=== PATIENT | female | born 1940 | race Caucasian/White ===

== ENCOUNTER 2019-08-18 13:01 | Outpatient (CLI) | payer MEDICARE, SELFPAY ==
--- NOTE | ~2019-08-18 | MM_ITS ---
EXAMINATION: MM screening tricia BI w rajeev HISTORY: Screening mammogram, family history of breast cancer in her mother. TECHNIQUE: Craniocaudal and mediolateral oblique 3-D tomosynthesis images were obtained and synthetic 2-D images were generated. CAD analysis was submitted and interpreted. COMPARISON: 08/10/2018, 08/04/2017, 07/24/2015 BREAST PARENCHYMAL COMPOSITION: The breasts are heterogeneously dense, which may obscure small masses . FINDINGS: Scattered benign-appearing calcifications are present. There is no evidence of suspicious m ass, calcification, or architectural distortion to suggest malignancy in either breast. There has bee n no suspicious interval change. IMPRESSION: 1. No mammographic evidence of malignancy. 2. Recommend routine screening mammography in one year. BI-RADS Category 2: Benign finding(s). Reviewed, dictated and finalized at location A.
== END 2019-08-18 13:02 | disposition home or self-care (01) ==
LOC: ANHIMG 13:06
PROVIDERS: PCP Chiropractor; Visit Provider Nurse Practitioner
DX: Z12.31 Encounter for screening mammogram for malignant neoplasm of breast (principal)
CPT/HCPCS: 77063; 77067

== ENCOUNTER → 2020-05-02 14:29 | Outpatient (CLI) | payer MEDICARE, SELFPAY ==
--- NOTE | ~2020-05-02 | CT_ITS ---
EXAMINATION: CT soft tissue neck w con DATE: 05/02/2020 15:01 INDICATION: Left neck lump. TECHNIQUE: Computed tomography (CT) of the neck was performed with 75 mL Omnipaque-350 intravenous co ntrast. Automated exposure control and iterative reconstruction technique were employed. The dose-vinod gth product was 350.40 mGy-cm. COMPARISON: None FINDINGS: There are likely changes of ocular lens replacement surgeries. There is plaque in the proxi mal internal arteries with less than 50% stenosis relative to normal distal artery lumen diameters. T here is a skin marker at left neck. There is no abnormal mass in this area. There are no pathological ly enlarged lymph nodes. The mastoid air cells are normal. There is severe cervical spondylosis. IMPRESSION: 1. No abnormal neck mass or lymphadenopathy. Reviewed, dictated and finalized at location A. [employer]
[2020-05-02 14:49] LABS: Estimated Glomerular Filt Rate > 60
== END ==
PROVIDERS: PCP Physician Assistant; Visit Provider Physician Assistant
DX: R22.1 Localized swelling, mass and lump, neck (principal); I70.8 Atherosclerosis of other arteries; M47.812 Spondylosis without myelopathy or radiculopathy, cervical region
CPT/HCPCS: 70491; Q9967

== ENCOUNTER 2020-08-28 10:21 | Outpatient (CLI) | payer MEDICARE, SELFPAY ==
--- NOTE | ~2020-08-28 | MM_ITS ---
EXAMINATION: MM screening tricia BI w rajeev HISTORY: Screening mammogram TECHNIQUE: Craniocaudal and mediolateral oblique 3-D tomosynthesis images were obtained and synthetic 2-D images were generated. CAD analysis was submitted and interpreted. COMPARISON: 08/18/2019, 08/10/2018, 08/04/2017 bilateral digital screening mammogram examinations BREAST PARENCHYMAL COMPOSITION: The breasts are heterogeneously dense, which may obscure small masses . FINDINGS: There is no evidence of suspicious mass, calcification, or architectural distortion to sugg est malignancy in either breast. There has been no suspicious interval change. IMPRESSION: 1. No mammographic evidence of malignancy. 2. Recommend routine screening mammography in one year. BI-RADS Category 1: Negative Reviewed, dictated and finalized at location B.
== END 2020-08-28 10:22 | disposition home or self-care (01) ==
LOC: ANHIMG 10:23
PROVIDERS: PCP Physician Assistant; Visit Provider Physician Assistant
DX: Z12.31 Encounter for screening mammogram for malignant neoplasm of breast (principal)
CPT/HCPCS: 77063; 77067

== ENCOUNTER 2021-09-11 12:28 | Outpatient (CLI) | payer MEDICARE, SELFPAY ==
--- NOTE | ~2021-09-11 | MMUS_ITS ---
EXAMINATION: MM diagnostic tricia BI w rajeev, US breast LT limited HISTORY: Palpable left breast lump TECHNIQUE: Additional 3-D tomosynthesis images of the breasts were performed and synthetic 2-D images were generated. CAD analysis was submitted and interpreted. High resolution Limited left breast ultr asound was performed. COMPARISON: Comparison to multiple prior studies sequentially, with oldest reviewed study dated 07/24. BREAST PARENCHYMAL COMPOSITION: Breast composed of scattered areas of fibroglandular density FINDINGS: MAMMOGRAPHIC FINDINGS: There are no suspicious masses, calcifications or architectural distortion in either breast to sugges t malignancy. ULTRASOUND: Limited left breast ultrasound: Normal heterogeneous echotexture without focal solid or cystic mass. IMPRESSION: 1. No evidence for malignancy in either breast. 2. Routine yearly screening mammogram and regular clinical breast examination are recommended. BI-RADS Category 1: Negative Reviewed, dictated and finalized at location A. IMPRESSION: 1. No evidence for malignancy in either breast. 2. Routine yearly screening mammogram and regular clinical breast examination a re recommended. BI-RADS Category 1: Negative
== END 2021-09-11 12:29 | disposition home or self-care (01) ==
PROVIDERS: PCP Physician Assistant; Visit Provider Physician Assistant
DX: R92.8 Other abnormal and inconclusive findings on diagnostic imaging of breast (principal)
CPT/HCPCS: 76642; 77062; 77066; G0279

== ENCOUNTER → 2021-09-17 10:16 | Outpatient (CLI) | payer MEDICARE, SELFPAY ==
--- NOTE | ~2021-09-17 | XR_ITS ---
EXAMINATION: XR UGIAC wo kub EXAM DATE: 09/17/2021 11:13 INDICATION: Epigastric pain, reflux. History of cholecystectomy, episodes of pancreatitis and pancrea tic duct stents. TECHNIQUE: Limited single and double contrast barium upper GI examination was performed by radiologi st Vamshi Pineda M.D. according to patient abilities. Pulsed dose reduction fluoroscopy was used with f luoroscopic time of 0.8 minutes. The DAP for this procedure was 1.0 Gycm2. A total of 146 images ob tained for the exam. There is no prior study for comparison. FINDINGS: There is no esophageal stricture, diverticulum or mass identified. Small sliding gastroeso phageal hiatal hernia with large amount of reflux demonstrated during the examination. The stomach has a normal appearance without evidence of mass lesion, ulceration or filling defect. T here is normal rugal fold pattern. The duodenum and duodenal sweep are normal in appearance. Orally ingested contrast also refluxed into the common bile duct and the pancreatic duct with some filling d efects inside likely gas. Cholecystectomy clips. IMPRESSION: Small gastroesophageal hiatal hernia, large amount of reflux demonstrated. Reviewed, dictated and finalized at location B. IMPRESSION: Small gastroesophageal hiatal hernia, large amount of reflux demons trated.
== END ==
PROVIDERS: PCP Physician Assistant; Visit Provider Physician Assistant
DX: R10.13 Epigastric pain (principal); K44.9 Diaphragmatic hernia without obstruction or gangrene
CPT/HCPCS: 74246

== ENCOUNTER → 2022-02-20 10:11 | Outpatient (CLI) | payer MEDICARE, SELFPAY ==
--- NOTE | ~2022-02-20 | CT_ITS ---
EXAMINATION: CT abdomen pelvis w con INDICATION: Right lower quadrant pain TECHNIQUE: Computed tomographic images of the abdomen and pelvis were obtained after the administrati on of 100 cc of Omnipaque 350 intravenous contrast. The dose-length product (DLP) was 343.82 mGy-cm. Automated exposure control and iterative reconstruction technique were employed. COMPARISON: 06/03/2019 FINDINGS: Minimal dependent atelectasis is present in the lung bases. The heart size is normal. There is a new 3 mm nodule in the medial aspect of the left lower lobe on image 3. There is mild atelectas is of the lingula. The gallbladder is surgically absent. There is chronic pneumobilia in the left hep atic lobe. The spleen, pancreas, and adrenal glands are normal. The kidneys are unremarkable. There i s calcified atherosclerosis of the aorta and many of the other arteries. No pathologically enlarged a bdominal or pelvic lymph nodes are identified. There is no free intraperitoneal gas or evidence of lazarus wel obstruction. Colonic diverticulosis is present without evidence of diverticulitis. A calcified ut erine fibroid is noted. A moderate volume of colonic stool is present. There is severe lumbar spondyl osis. There is a burst fracture of T11 with vertebroplasty change. IMPRESSION: 1. No CT correlate for the patient's symptoms. Reviewed, dictated and finalized at location B.
[2022-02-20 10:30] LABS: Estimated Glomerular Filt Rate > 60
== END ==
PROVIDERS: PCP Physician Assistant; Visit Provider Physician Assistant
DX: R10.31 Right lower quadrant pain (principal); S22.081A Stable burst fracture of T11-T12 vertebra, initial encounter for closed fracture; K57.30 Diverticulosis of large intestine without perforation or abscess without bleeding; D25.9 Leiomyoma of uterus, unspecified; M47.816 Spondylosis without myelopathy or radiculopathy, lumbar region
CPT/HCPCS: 74177; Q9967

== ENCOUNTER → 2022-05-24 12:27 | Outpatient (CLI) | payer MEDICARE, SELFPAY ==
--- NOTE | ~2022-05-24 | MR_ITS ---
MRI of the cervical spine Clinical History: Cervical radiculopathy Technique: Axial T2-weighted and gradient images, and sagittal T1-weighted, T2-weighted, and T2 fat-s at images were acquired. COMPARISON: 09/08/2010 Findings: No acute fracture seen. Grade 1 retrolisthesis of C5 over C6 is present, similar to prior e xam. No suspicious bone marrow signal abnormality identified. At C2-C3, there is no disc bulge or herniation. No spinal canal stenosis, cord compression, or neural foraminal narrowing. At C3-C4, there is no disc bulge or herniation. No spinal canal stenosis, cord compression, or neural foraminal narrowing. At C4-C5, there is minimal disc bulge. No spinal canal stenosis or cord compression. Probable minimal bilateral neural foraminal narrowing. At C5-C6, there is disc bulge, partially related to the listhesis, which mildly effaces the ventral t hecal sac. No steph cord compression. There is bilateral neural foraminal narrowing, left worse than right. At C6-C7, there is small disc osteophyte complex. No spinal canal stenosis or cord compression. There is probable bilateral neural foraminal narrowing. No abnormal signal seen in the spinal cord. Paravertebral soft tissues are unremarkable. Impression: Grade 1 retrolisthesis of C5 over C6, similar to prior exam. Mild degenerative spondylosis, similar to prior exam. Probable bilateral neural foraminal narrowing a t C4-C5, C5-C6, and C6-C7. Reviewed, dictated and finalized at location [] [employer] Impression: Grade 1 retrolisthesis of C5 over C6, similar to prior exam. Mild degenerative spondylosis, similar to prior exam. Probable bilateral neural foraminal narrowing at C4-C5, C5-C6, and C6-C7.
--- NOTE | ~2022-05-24 | MR_ITS ---
MRI of the thoracic spine Clinical History: Pain Technique: Axial T2-weighted images, and sagittal T1-weighted, T2-weighted, and STIR images were acqu ired. Findings: Chronic T11 compression fracture with vertebroplasty cement present. No other fracture or s ubluxation seen in the thoracic spine. There is mild kyphosis overall the thoracic spine. No suspicio us bone marrow signal abnormalities seen otherwise. Minimal disc bulges are present at T6-T7, T7-T8, and T8-T9, without steph canal stenosis or cord comp ression. No other disc bulge or herniation seen. No spinal canal stenosis or cord compression identif ied in the thoracic spine. No abnormal signal seen in the spinal cord. No epidural mass or collection seen. Paravertebral soft t issues are unremarkable. 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 Minimal disc bulges, as detailed above. Mild kyphosis overall. 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 Minimal disc bulges, as detailed above. Mild kyphosis overall.
== END ==
PROVIDERS: PCP Physician Assistant; Visit Provider Nurse Practitioner Family
DX: M54.6 Pain in thoracic spine (principal); M47.22 Other spondylosis with radiculopathy, cervical region
CPT/HCPCS: 72141; 72146

== ENCOUNTER 2022-07-29 12:45 | Outpatient (CLI) | payer MEDICARE, SELFPAY ==
--- NOTE | 2022-07-29 13:00 | ECG_ITS ---
Measurements Intervals [place] Rate: 67 P: 42 SD: 189 QRS: -27 QRSD: 106 T: -18 QT: 418 QTc: 444 Interpretive Statements SINUS RHYTHM BORDERLINE LEFT AXIS DEVIATION [QRS AXIS < -20] LOW QRS VOLTAGE IN PRECORDIAL LEADS [QRS DEFLECTION < 1.0 mV IN CHEST LEADS] PATTERN CONSISTENT WITH PULMONARY DISEASE INCOMPLETE RIGHT BUNDLE BRANCH BLOCK [90+ ms QRS DURATION, TERMINAL R IN V1/V2, 40+ ms S IN I/aVL/V4/V5/V6] NONSPECIFIC T-WAVE ABNORMALITY ABNORMAL ECG COMPARED TO ECG 06/03/2019 15:43:09 INCOMPLETE RIGHT BUNDLE-BRANCH BLOCK NOW PRESENT Electronically Signed On 07-30-2022 14:06:59 [employer] by Miko Alvarez M.D.
== END 2022-07-29 12:46 | disposition home or self-care (01) ==
PROVIDERS: PCP Physician Assistant; Visit Provider Surgery
DX: Z01.818 Encounter for other preprocedural examination (principal); I10 Essential (primary) hypertension; K40.90 Unilateral inguinal hernia, without obstruction or gangrene, not specified as recurrent; R94.31 Abnormal electrocardiogram [ECG] [EKG]; I45.19 Other right bundle-branch block
CPT/HCPCS: 36415; 86850; 86900; 86901; 93005

== ENCOUNTER 2022-08-02 02:40 | Day surgery (SDC) | payer MEDICARE, SELFPAY ==
--- NOTE | 2022-07-26 13:12 | PC.NURSE ---
Report to the Outpatient Waiting Room, entrance under the green pavilion located off [facility], at time _0830 on date _08/02/22 . Planned Procedure Time: __1030 . Time changes happen often and if your time is changed the preop area will call you the afternoon before. - You and your visitor will be asked to self-screen and do not enter if you have any COVID symptoms. - Only one visitor is requested with a max of two and NO children visitors are allowed at this time. - The patient visitor may be requested to leave or wait in car when not with patient due to distancing restrictions. - A mask is optional within the hospital at this time. Patients may have clear liquids (water, carbonated beverages, clear teas, apple juice) until 3 hours prior to surgery with a maximum of 20 ounces. - No food from midnight until time of surgery - Infants may have breast milk until 4 hours before surgery, infant formula 6 hours prior to surgery. - Children will be allowed to drink immediately following surgery. If applicable, please bring a bottle or sippy cup to assist with drinking. Juice, water, soda, and popsicles are readily available. For infants on formula, please bring formula the day of surgery. Pacifiers are allowed. Take the following medications with a SIP of water the morning of surgery: __AMLODIPINE,LEVOTHYROXINE AND OXYCODONE IF NEEDED DO NOT STOP ANY OF YOUR OTHER PRESCRIPTION MEDICATIONS PRIOR TO SURGERY ?EXCEPT THE FOLLOWING Medications to discontinue per physician ALL VITAMINS/SUPPLEMENTS 3 DAYS PRE OP 07/29/22 HIBICLENS SHOWERS MORNING OF SURGERY Please no make-up, nail senegalese, hairspray, perfume, deodorant, or body powder the day of surgery. No jewelry (including any body piercings) or valuables the day of surgery, leave them at home. Please take a shower or bath the night before, or the morning of, surgery with an antibacterial soap. Wear comfortable, loose fitting clothing. Children are encouraged to wear pajamas. - Jewelry must be removed prior to entering the operating room. Rings and piercings that are not removed may be cut off. - The hospital will not accept responsibility for valuables. - Please leave all valuables, including medications, at home the day of surgery. If you are going home after surgery, a licensed commercial truck driver must drive you home. - NO public transportation without another adult if you receive anesthesia. - We recommend that an adult stay with you for 24 hours following discharge. - We also recommend that you do not drive, make important decision, drink alcoholic beverages, or take any drugs that were not prescribed by your health care provider for at least 24 hours after your discharge time. Follow any additional instructions given to you from your surgeon. If you or anyone in your household have experienced Covid symptoms in the past week, please notify your surgeon or the nurse liaison at the phone number below for possible testing. Telephone instructions given to __PATIENT and asked if any additional questions and then verbalized understanding. Patient advised to call surgeon office or pre surgery nurse liaison [phone] if any additional questions.
[2022-07-26 13:22] VITALS: BMI 25.0
--- NOTE | 2022-08-01 18:31 | PM.SD2 ---
Same Day Admit/Disch: HPI History of Present Illness Narrative: Sandra Carlos is a 81 year old female who has noticed a bulge and burning in the right groin since about January of 2022. She had a CT scan which did not show any hernias. She was seen in the office and found to have a reducible right inguinal hernia. She is taken to surgery now for robotic laparoscopic right inguinal hernia repair. Patient has a history of chronic back pain and takes Percocet about 4 times per day. [facility] Past Medical History Medical History Anemia Arthritis Chronic low back pain Chronic pain syndrome Colitis Diverticulitis Gastric ulcer GERD (gastroesophageal reflux disease) Glaucoma HLD (hyperlipidemia) HTN (hypertension) Pancreatitis Pneumonia Right rotator cuff tear Right rotator cuff tear arthropathy Seasonal allergies Surgical History Surgical History H/O bilateral cataract extraction H/O lumbar discectomy H/O removal of cyst History of cardiac catheterization History of total left hip arthroplasty Hx of appendectomy Hx of cholecystectomy Hx of tonsillectomy Status post total knee replacement, left Family History Family History Sibling Family history of congenital heart disease Family history of arthritis Father Family history of arthritis Mother Family history of malignant neoplasm Other Diabetes mellitus Family history of cardiovascular disease Family history of kidney disease Hypertension Social History Social History Social History: Lives at home with her . She is a full code. She nominates her daughter to be the individual making medical decisions for her if she is unable. She rarely drinks alcohol. Lifelong nonsmoker. No drug use. Smoking status: Never smoker Alcohol intake: current Substance use: never Substance use type: does not use Living arrangements: with family Gender identity (if verbalized by the patient): Female Spiritual care concerns: No Agree to blood products: Yes Same Day Admit/Disch: Med Pre-admit Medications Home Medications Medication Instructions Recorded Confirmed Type ergocalciferol (vitamin D2) 1,250 50,000 unit PO 2XW 06/03/19 08/02/22 History mcg (50,000 unit) capsule (Vitamin D2) ferrous sulfate 325 mg (65 mg 325 mg PO DAILY 06/03/19 08/02/22 History iron) tablet levothyroxine 75 mcg tablet 75 mcg PO DAILY 06/03/19 08/02/22 History (Synthroid) multivit with minerals-iron 18 1 tablet PO DAILY 06/03/19 08/02/22 History mg-folic ac 400 mcg-vit K 25 mcg tablet (Adults Multivitamin) oxycodone-acetaminophen 5 mg-325 1 tablet PO Q4H PRN Pain 06/03/19 08/02/22 History mg tablet amlodipine 2.5 mg tablet 2.5 mg PO DAILY 01/16/21 07/26/22 History atorvastatin 20 mg tablet 20 mg PO DAILY 01/16/21 08/02/22 History calcium citrate 200 mg (950 mg) 600 mg PO DAILY 01/16/21 08/02/22 History tablet omega-3 fatty acids 1,000 mg 1,000 mg PO BID 01/16/21 08/02/22 History capsule (Fish Oil Concentrate) hydroxychloroquine 200 mg tablet 200 mg PO BID 07/26/22 08/02/22 History lisinopril 20 1 tablet PO DAILY 07/26/22 08/02/22 History mg-hydrochlorothiazide 25 mg tablet zinc 50 mg tablet 50 mg PO DAILY 07/26/22 08/02/22 History oxycodone-acetaminophen 5 mg-325 1 - 2 tablet PO Q6H PRN pain #25 08/02/22 Rx mg tablet (Percocet) tabs Exam Const: General: comfortable, no acute distress, alert and awake HENMT: Head: normocephalic and atraumatic Mouth: Yes Normal oral and palatal mucosa present Eyes: Conjunctivae: conjunctivae normal Pupils: Equal, round and reactive pupils present EOM: EOMs intact bilaterally Neck: Neck: normal visual inspection, no lymphadenopathy and nontender Resp: Effort & Inspection: nor
[2022-08-02] VITALS (10 sets, daily range): BP systolic 110–143; BP diastolic 32–61; PULSE 72–96; RESP 12–16; TEMP 36.3–36.8; O2SAT 95–100
--- NOTE | 2022-08-02 06:57 | WPDHPUPDATE1 ---
History and Physical Update Update Date/Time: 08/02/22 06:57 History and Physical has been reviewed, including an updated exam of the patient. There are NO changes in the patient's condition. Risks, benefits, and alternatives have been discussed and questions answered. Patient agrees to proceed with procedure.
[2022-08-02] MEDS: ACETAMINOPHEN 500 MG TABLET 1000 MG PO (08:57)
[2022-08-02] MEDS: LACTATED RINGERS 1,000 ML 30 ML IV CONT ×3 (09:09→15:38)
[2022-08-02] MEDS: KETOROLAC 15 MG/ML VIAL (*BKC) IV PUSH (09:11)
[2022-08-02 10:14] LABS: Sodium 126 mmol/L (137-145)
--- NOTE | 2022-08-02 10:37 | WPDANESEPPF ---
Anes - Initial Pre Proc Eval Procedure: Operation Date: 08/02/22 10:30 Proposed Procedures p Robotic Laparoscopic Assisted Right Inguinal Hernia Repair - Allen Rodriguez MD Date/Time: 08/02/22 10:37 Surgeon: Allen Rodriguez MD Pre Op Diagnosis: Right Ing Hernia Patient Data Age: 81 Gender: F Height: 1.5 m Weight: 54.9 kg Last Vital Signs Temp 36.3 C L 08/02/22 08:35 Pulse 72 08/02/22 08:35 Resp 16 08/02/22 08:35 BP 143/54 H 08/02/22 08:35 Pulse Ox 97 08/02/22 08:35 O2 Del Method Room Air 08/02/22 08:35 Allergies Allergy/AdvReac Type Severity Reaction Status Date / Time morphine Allergy Mild Nausea Verified 08/02/22 08:50 Home Medications Medication Instructions Recorded Confirmed Type ergocalciferol (vitamin D2) 1,250 50,000 unit PO 2XW 06/03/19 08/02/22 History mcg (50,000 unit) capsule (Vitamin D2) ferrous sulfate 325 mg (65 mg 325 mg PO DAILY 06/03/19 08/02/22 History iron) tablet levothyroxine 75 mcg tablet 75 mcg PO DAILY 06/03/19 08/02/22 History (Synthroid) multivit with minerals-iron 18 1 tablet PO DAILY 06/03/19 08/02/22 History mg-folic ac 400 mcg-vit K 25 mcg tablet (Adults Multivitamin) oxycodone-acetaminophen 5 mg-325 1 tablet PO Q4H PRN Pain 06/03/19 08/02/22 History mg tablet amlodipine 2.5 mg tablet 2.5 mg PO DAILY 01/16/21 07/26/22 History atorvastatin 20 mg tablet 20 mg PO DAILY 01/16/21 08/02/22 History calcium citrate 200 mg (950 mg) 600 mg PO DAILY 01/16/21 08/02/22 History tablet omega-3 fatty acids 1,000 mg 1,000 mg PO BID 01/16/21 08/02/22 History capsule (Fish Oil Concentrate) hydroxychloroquine 200 mg tablet 200 mg PO BID 07/26/22 08/02/22 History lisinopril 20 1 tablet PO DAILY 07/26/22 08/02/22 History mg-hydrochlorothiazide 25 mg tablet zinc 50 mg tablet 50 mg PO DAILY 07/26/22 08/02/22 History Laboratory Tests 08/02/22 08:46 Sodium 126 mmol/L L mmol/L (137-145) Patient hx anesthesia problems: none Family hx anesthesia problems: none Results Review: All pre-operative results and documents have been reviewed as part of the pre-operative evaluation. COUNT INCLUDES THE [facility] Past Medical History Medical History Anemia Arthritis Chronic low back pain Chronic pain syndrome Colitis Diverticulitis Gastric ulcer GERD (gastroesophageal reflux disease) Glaucoma HLD (hyperlipidemia) HTN (hypertension) Pancreatitis Pneumonia Right rotator cuff tear Right rotator cuff tear arthropathy Seasonal allergies Surgical History Surgical History H/O bilateral cataract extraction H/O lumbar discectomy H/O removal of cyst History of cardiac catheterization History of total left hip arthroplasty Hx of appendectomy Hx of cholecystectomy Hx of tonsillectomy Status post total knee replacement, left Family History Family History Sibling Family history of congenital heart disease Family history of arthritis Father Family history of arthritis Mother Family history of malignant neoplasm Other Diabetes mellitus Family history of cardiovascular disease Family history of kidney disease Hypertension Social History Social History Social History: Lives at home with her . She is a full code. She nominates her daughter to be the individual making medical decisions for her if she is unable. She rarely drinks alcohol. Lifelong nonsmoker. No drug use. Smoking status: Never smoker Alcohol intake: current Substance use: never Substance use type: does not use Living arrangements: with family Gender identity (if verbalized by the patient): Female Spiritual care concerns: No Agree to blood products: Yes Anes - Eval Final PreProcedure Day of Procedure 08/02/22 10:37 Pat
[2022-08-02] MEDS: ceFAZolin 2 GM/D5W 50 ML 2 GM/50 ML BAG IVPB (11:15)
[2022-08-02] MEDS: BUPIVACAINE/EPINEPHRINE 0.5% 10 ML VIAL 20 ML INFILTRATE (11:51)
--- NOTE | 2022-08-02 13:25 | P.OP_ITS ---
Procedure Note - Detailed Date of Procedure 08/02/22 Pre-op Diagnosis Right Ing Hernia Post-op Diagnosis Same Procedure Performed Robotic laparoscopic right inguinal hernia repair with mesh Surgeon Allen Rodriguez MD Computer Programming Supervisor Xavier PEREZ Anesthesia General and Local Indications Patient has a large right inguinal hernia which has gotten bigger over time and byers when it is bulging. She is taken to surgery now for robotic laparoscopic right inguinal hernia repair Findings Patient had a large indirect right inguinal hernia Description of Procedure Patient was taken to surgery and induced into general anesthesia. The abdomen is prepped and draped. An applied Medical optical trocar was used to gain access to the abdominal cavity in the left subcostal position. After insuffl ation, we placed 8 mm robotic ports in the mid abdomen and right upper abdomen. The left upper quadrant port was exchanged for an 8 mm robotic port as well. Robot was brought into the field. The camera was docked and targeted. We then docked arms 1 and 3. The surgeon then went to the console. There were some adhesions of omentum in the right lower quadrant. These were taken down without difficulty. The peritoneum was incised at about the level of the anterior superior iliac spine. This incision was continued laterally and medially. We then created a peritoneal flap. This extended past the median umbilical ligament. The flap was dissected down and care was taken to avoid the inferior epigastric vessels as well as the iliac vessels. Attention was then turned to the hernia sac which was carefully dissected out of the internal ring and completely freed. The round ligament was carefully dissected and then divided with the cautery. We exposed the pubic tubercle and Bharathi's ligament. The peritoneum was further dissected posteriorly until an adequate flap had been created and the inguinal canal space had been exposed. A 17 x 12 piece of 3DMax mesh was then introduced into the abdomen. It was positioned over the hernia defect and covered the area quite well. Three different 3-0 Vicryl sutures were then placed. One was placed in Bharathi's ligament. One was placed medially on the upper aspect of the mesh. The other was placed laterally on the upper aspect of the mesh. All looked good. I then used a 2 0 V lock. This was used as a running suture and the peritoneum was closed. Vicryl suture was used to close a couple of holes in the peritoneum with [id number] suture. All looked good. We evacuated CO2 and undocked the robot. The trocars were removed. Skin was closed with subcuticular 4-0 Monocryl skin suture. The wounds were dressed with Exofin surgical adhesive. The patient was awakened and taken to recovery in good condition. Sponge and needle counts were correct x2. Implants 17 x 12 cm 3DMax mesh Estimated Blood Loss -5.0 Drains No Packing No Pathology None sent Complications No immediate complications Condition Stable Disposition PACU [facility] Billing Surgery - Charge Forward: Surgery Billing (Robotic laparoscopic repair of right inguinal hernia.)
[2022-08-02] MEDS: fentaNYL CITRATE INJ (*CRX) 100 MCG/2 ML VIAL 25 MCG IV PUSH ×6 (13:27→15:06)
[2022-08-02] MEDS: oxyCODONE HCL (*CRX) 5 MG TAB IR PO (14:32)
--- NOTE | 2022-08-02 14:40 | SUR.PHASEII ---
PATIENT STATES LEFT EYE SUDDENLY FEELS IRRITATED . SHE IS ABLE TO KEEP IT OPEN; NO REDNESS NOTED. DR. FRYE HERE TO SEE HER.
[2022-08-02] MEDS: ARTIFICIAL TEARS OPHTH SOLN 15 ML BOTTLE 1 DROP EACH EYE (15:04)
[2022-08-02] MEDS: DICLOFENAC SODIUM 0.1% OPHTH SOLN 2.5 ML BOTTLE 1 DROP EACH EYE (15:04)
[2022-08-02] MEDS: PROPARACAINE HCL 0.5% 15 ML OPHTH SOLN 1 DROP EACH EYE (15:04)
--- NOTE | 2022-08-02 15:57 | SUR.PHASEII ---
PATIENT C/O'ING PERSISTENT LEFT EYE IRRITATION; DR. FRYE NOTFIED; INSTRUCTED TO HAVE PATIENT FOLLOW-UP WITH EYE DOCTOR.
== END 2022-08-02 16:32 | disposition home or self-care (01) ==
PROVIDERS: PCP Physician Assistant; Visit Provider Surgery
PROC: 8E0Y4CZ Robotic Assisted Procedure of Lower Extremity, Percutaneous Endoscopic Approach (ICD-10-PCS; CPT 49650; principal; 2022-08-02 10:30)
DX: K40.90 Unilateral inguinal hernia, without obstruction or gangrene, not specified as recurrent (principal); I10 Essential (primary) hypertension; E78.5 Hyperlipidemia, unspecified; K21.9 Gastro-esophageal reflux disease without esophagitis; D64.9 Anemia, unspecified; H40.9 Unspecified glaucoma; G89.4 Chronic pain syndrome; K90.0 Celiac disease; F11.20 Opioid dependence, uncomplicated
CPT/HCPCS: 49650; S2900; 36415; 84295; A9270; C1781; J0330; J0360; J0690; J1100; J1170; J1885; J2405; J2704; J2710; J3010; J7030; J7120

== ENCOUNTER 2022-10-10 12:45 | Outpatient (CLI) | payer MEDICARE, SELFPAY ==
--- NOTE | ~2022-10-10 | DEXA_ITS ---
Bone Density Report Name: ADALBERTO FRAUSTO Age: 81 Sex: Female Ethnicity: White Date of : 1940 Indication: osteopenia; height loss; prior fracture; rheumatoid arthritis; postmenopausal Referring Provider: MARIMAR, EVAN Study: Bone densitometry was performed. Exam Date: October 10, 2022 Accession number: [id number] Bone Density: Region BMD T-score Z-score Classification AP Spine(L1, L2) 0.894 -0.8 1.7 Normal Femoral Neck (Left) 0.622 -2.0 0.2 Osteopenia Total Hip (Left) 0.720 -1.8 0.2 Osteopenia Femoral Neck (Right) 0.667 -1.6 0.7 Osteopenia Total Hip (Right) 0.735 -1.7 0.4 Osteopenia Total Hip Mean 0.727 -1.8 0.3 Osteopenia World Health Organization criteria for BMD impression classify patients as: Normal (T-score at or above -1.0), Osteopenia (T-score between -1.0 and -2.5), or Osteoporosis (T-score at or below -2.5). 10-year Fracture Risk: FRAX not reported because: Prior hip or vertebral fracture Previous Exams: Region Exam Age BMD T-score BMD Change BMD Change Date g/cm2 vs Baseline vs Previous AP Spine (L1-L2) 10/10/2022 81 0.894 -0.8 0.021 (2.4%) 0.021 (2.4%) 08/04/2017 76 0.873 -1.0 Total Hip(Left) 10/10/2022 81 0.720 -1.8 -0.090 (-11.1% -0.090 (-11.1% 08/04/2017 76 0.809 -1.1 Total Hip(Right) 10/10/2022 81 0.735 -1.7 -0.052 (-6.7%) -0.052 (-6.7%) 08/04/2017 76 0.787 -1.3 *Denotes significance at 95% confidence level, LSC for AP Spine = 0.022 g/cm2, LSC for Total Hip = 0.027 g/cm2 Clinical Information Provided by Patient: Have had a previous hip or vertebral fracture Has had a low trauma fracture Has rheumatoid arthritis Has used the following medications: Vitamin D, Calcium Patient maximum height was 60 Menopause Age: 53 No regular weight bearing exercise Drinks caffeinated beverages Onset of menses at age 13 Number of children 2 Impression: The patient has low bone mass, based on the Left Femoral Neck T-score. The patient has risk factors, including: previous fracture. The BMD for the Total Hip(Left) decreased, changing by -11.1% since the last DXA exam. The BMD for the Total Hip(Right) decreased, changing by -6.7% since the last DXA exam. Discussion: INCREASED RISK OF FRACTURE DUE TO HISTORY OF FRACTURE. The patient's previous fracture puts the patient at high risk of a future fracture. In untreated patients, the risk of osteoporotic fracture increases approximately two-fold for e
== END 2022-10-10 12:46 | disposition home or self-care (01) ==
PROVIDERS: PCP Physician Assistant; Visit Provider Physician Assistant
DX: Z78.0 Asymptomatic menopausal state (principal); M85.89 Other specified disorders of bone density and structure, multiple sites
CPT/HCPCS: 77080

== ENCOUNTER 2022-11-05 16:28 | Inpatient (IN) | payer MEDICARE, SELFPAY ==
--- NOTE | ~2022-11-05 | XR_ITS ---
EXAMINATION: XR chest 1V portable Exam Date/Time: 11/06/2022 16:35 CDT HISTORY: Hyponatremia LOW POTASSIUM W/DIARRHEA Comparison: 06/03/2019. RESULT: Lines, tubes, and devices: None. Lungs and pleura: Senescent changes. Bibasilar scar/atelectasis. Cardiomediastinal silhouette: Stable. Other: No acute osseous or upper abdominal finding. IMPRESSION: No acute cardiopulmonary process. Reviewed, dictated and finalized at location K.
--- NOTE | 2022-11-05 17:54 | ECG_ITS ---
Measurements Intervals [place] Rate: 74 P: 37 MI: 150 QRS: -42 QRSD: 86 T: -80 QT: 414 QTc: 461 Interpretive Statements SINUS RHYTHM INCOMPLETE RIGHT BUNDLE BRANCH BLOCK DELAYED PRECORDIAL R/S TRANSITION ST-T WAVE ABNORMALITY IN ANTEROLAT/INF LEADS- CONSIDER ISCHEMIA BASELINE ARTIFACT- I, II, III, AVR, AVL, AVF, V1-V6 ABNORMAL ECG COMPARED TO ECG 07/29/2022 13:35:26 ST-T WAVE ABNORMALITY NOW PRESENT Electronically Signed On 11-05-2022 18:35:43 CDT by Gideon Barton D.O.
[2022-11-05 17:55] VITALS: BP 109/67; PULSE 73; RESP 16; TEMP 36.5; O2SAT 98
[2022-11-05 18:29] LABS: Basophils Absolute Auto 0.1 K/mm3 (0.0-0.1); Basophils Percent Auto 0.4 % (0.2-1.2); Eosinophils Percent Auto 0.3 % (0-4.4); Hemoglobin 12.3 g/dL (12.0-15.0); Immature Granulocyte Percent A 4.5 % (0-0.5); Lymphocytes Percent Auto 8.9 % (18.3-44.2); Mean Corpuscular HGB Conc 36.2 g/dl (32-36); Mean Corpuscular Hemoglobin 29.2 pg (26-34); Mean Corpuscular Volume 80.8 fl (80-100); Mean Platelet Volume 7.8 fl (7.4-10.4); Monocytes Absolute Auto 0.8 K/mm3 (0.1-0.6); Monocytes Percent Auto 5.6 % (2.6-8.5); Neutrophils Absolute Auto 10.8 K/mm3 (1.3-6.7); Neutrophils Percent Auto 80.3 % (45.5-73.1); Platelet Count Result 484 k/mm3 (150-375); Red Blood Count 4.21 M/mm3 (4.2-5.4); Red Cell Distribution Width 14.4 % (11.5-14.5); White Blood Count 13.5 K/mm3 (4.5-10.0)
[2022-11-05 18:45] LABS: Alanine Aminotransferase 65 U/L (6-35); Albumin Level 4.3 g/dL (3.5-5.1); Alkaline Phosphatase 95 U/L (38-126); Anion Gap 8 mmol/L (8-16); Aspartate Amino Transferase 90 U/L (14-36); Bilirubin,Total 0.8 mg/dL (0.2-1.3); Blood Urea Nitrogen 15 mg/dL (7-17); Calcium 8.6 mg/dL (8.4-10.2); Carbon Dioxide 37 mmol/L (22-30); Chloride 69 mmol/L (98-107); Estimated Glomerular Filt Rate > 60; Glucose 105 mg/dL (65-110); Potassium 2.6 mmol/L (3.4-5.0); Sodium 114 mmol/L (137-145)
[2022-11-05] MEDS: POTASSIUM CHLORIDE 20 MEQ PACKET (FOR LIQUID) 40 MEQ PO (19:01)
[2022-11-05] MEDS: SODIUM CHLORIDE 0.9% IV 1,000 ML 999 ML IV CONT (19:02)
[2022-11-05 19:10] LABS: Magnesium 1.6 mg/dL (1.6-2.3)
--- NOTE | 2022-11-05 19:49 | ED.GENADULT ---
HPI - General Adult General Chief complaint: Weakness Stated complaint: N/V/D, weakness, dizziness Time Seen by Provider: 11/05/22 18:47 History of Present Illness HPI narrative: 81-year-old female history of celiac disease presented to the Emergency Department for evaluation of increased generalized weakness. Patient does have prior history of hypokalemia and hyponatremia. Family states that the patient is Noncompliant with her celiac disease and often has issues with malabsorption and diarrhea. Patient states on Friday she began having diarrhea but it only lasted a day or so and resolved. Patient states since then she has had decreased p.o. intake. Patient denies any abdominal pain or nausea or vomiting but she does report decreased p.o. intake. Patient denies any chest pain shortness of breath. Patient denies any pain with urination. Related Data Home Medications Medication Instructions Recorded Confirmed ergocalciferol (vitamin D2) 1,250 50,000 unit PO 2XW 06/03/19 11/05/22 mcg (50,000 unit) capsule (Vitamin D2) levothyroxine 75 mcg tablet 75 mcg PO DAILY 06/03/19 11/05/22 (Synthroid) multivit with minerals-iron 18 1 tablet PO DAILY 06/03/19 11/05/22 mg-folic ac 400 mcg-vit K 25 mcg tablet (Adults Multivitamin) oxycodone-acetaminophen 5 mg-325 1 tablet PO Q4H PRN Pain 06/03/19 11/05/22 mg tablet amlodipine 2.5 mg tablet 2.5 mg PO DAILY 01/16/21 11/05/22 atorvastatin 20 mg tablet 20 mg PO DAILY 01/16/21 11/05/22 omega-3 fatty acids 1,000 mg 1,000 mg PO DAILY 01/16/21 11/05/22 capsule (Fish Oil Concentrate) hydroxychloroquine 200 mg tablet 200 mg PO DAILY 07/26/22 11/05/22 lisinopril 20 1 tablet PO DAILY 07/26/22 11/05/22 mg-hydrochlorothiazide 25 mg tablet zinc 50 mg tablet 50 mg PO DAILY 07/26/22 11/05/22 alendronate 70 mg tablet (Fosamax) 70 mg PO WEEKLY 11/05/22 11/05/22 duloxetine 30 mg capsule,delayed 30 mg PO DAILY 11/05/22 11/05/22 release ferrous sulfate 325 mg (65 mg 325 mg PO DAILY 11/05/22 11/05/22 iron) tablet tizanidine 2 mg tablet 2 mg PO Q12H PRN Spasms 11/05/22 11/05/22 Allergies Allergy/AdvReac Type Severity Reaction Status Date / Time morphine Allergy Mild Nausea Verified 09/30/22 10:35 Review of Systems Review of Systems: All systems reviewed & are unremarkable except as noted in HPI and below PMFSH Past Medical History Medical History Anemia Arthritis Chronic low back pain Chronic pain syndrome Colitis Diverticulitis Gastric ulcer GERD (gastroesophageal reflux disease) Glaucoma HLD (hyperlipidemia) HTN (hypertension) Pancreatitis Pneumonia Right rotator cuff tear Right rotator cuff tear arthropathy Seasonal allergies Surgical History Surgical History H/O bilateral cataract extraction H/O inguinal hernia repair 08/02/22 Robotic laparoscopic right inguinal hernia repair with mesh H/O lumbar discectomy H/O removal of cyst History of cardiac catheterization History of total left hip arthroplasty Hx of appendectomy Hx of cholecystectomy Hx of tonsillectomy Status post total knee replacement, left Family History Family History Sibling Family history of congenital heart disease Family history of arthritis Father Family history of arthritis Mother Family history of malignant neoplasm Other Diabetes mellitus Family history of cardiovascular disease Family history of kidney disease Hypertension Social History Social History Social History: Lives at home with her . She is a full code. She nominates her daughter to be the individual making medical decisions for her if she is unable. She rarely drinks alcohol. Lifelong nonsmoker. No drug use. Smoking status: Never smoker Alcohol intake: never Substance use: never Anne
[2022-11-05] MEDS: SODIUM CHLORIDE 0.9% IV 250 ML 125 ML (20:39)
[2022-11-05] MEDS: KCL 20 MEQ/SW 100 ML 100 ML 50 MEQ IVPB (20:39)
[2022-11-05 20:52] VITALS: BP 165/69; PULSE 71; RESP 20; O2SAT 96
--- NOTE | 2022-11-05 21:39 | ADMGEN ---
This patient, Sandra Carlos, was admitted to IMU Room 212-01. Patient/family oriented to hospital policies and general routines including ID bracelet, bed and alarms, visiting hours, pain management, procedures, bathroom and other care routines, personal items, smoking policy, room service/diet, and visiting hours. Information on how to activate the Rapid Response Team has been discussed. Patient/Family are encouraged to report perceived risks to care and to ask questions if they do not understand what they are told or what they should do.
[2022-11-05 21:40] VITALS: BP 163/72; PULSE 93; RESP 20; TEMP 36.4; O2SAT 97; BMI 24.7
[2022-11-05 22:00] VITALS: PULSE 77
[2022-11-05 22:30] VITALS: PULSE 81; RESP 20; O2SAT 97
[2022-11-05 22:56] VITALS: BP 166/70; PULSE 81; RESP 20; TEMP 36.6; O2SAT 97
[2022-11-05 23:07] LABS: Appearance Urine Clear (Clear); Bilirubin Urine Negative (Negative); Blood Urine Negative (Negative); Color Urine Yellow (Yellow); Glucose Urine UA Negative (Negative); Ketones Urine Negative (Negative); Leukocyte Esterase Ur Negative LEU/UL (Negative); Nitrate Urine Negative (Negative); Protein Urine Negative (Negative); Specific Grav Ur 1.006 (1.001-1.035)
[2022-11-05 23:10] LABS: Add Urine Microscopic? NO
--- NOTE | 2022-11-05 23:39 | PM.IMHP ---
H&P: HPI History of Present Illness Date/Time: 11/05/22 23:39 Chief Complaint: Generalized weakness electrolyte derangements Narrative: This is a 81-year-old female with a past medical history including but not limited to celiac disease, osteoporosis, hypertension, dyslipidemia, depression, low vitamin D, presented to the Emergency Department for evaluation of increased generalized weakness.? Patient has experienced previous episodes of hypokalemia and hyponatremia.?She has a chronic hyponatremia at baseline. Family states that the patient is Noncompliant with her celiac disease and often has issues with malabsorption and diarrhea. Patient admits to non compliance to her prescribed diet due to lack of access.? Patient states on Friday she began having diarrhea but it only lasted a day or so and resolved.? Patient states since then she has had decreased p.o. intake, generalized weakness.? Patient denies any abdominal pain or nausea or vomiting but she does report decreased p.o. intake.? Patient denies any chest pain shortness of breath.? Patient denies any pain with urination. She has an episode of loose bowels today. At the time of the bedside evaluation the patient is feeling a lot better. Review of Systems Review of Systems: CONSTITUTIONAL: Negative for any fevers, chills, night sweats, tiredness, fatigue, malaise, anorexia or weight loss. CARDIOVASCULAR: Negative for chest pain, palpitations, dizziness, orthopnea or lower extremity edema. RESPIRATORY: Negative for shortness of breath, cough, wheezing, sputum. GENITOURINARY: Negative for frequency, nocturia, dysuria, hematuria. GYNECOLOGIC: Negative for abnormal bleeding. HEMATOLOGIC: Negative for any abnormal bleeding or bruising. MUSCULOSKELETAL: Negative for joint swelling, stiffness or pain. SKIN: Negative for rashes, eruptions, lesions or dryness. NEUROLOGIC: Negative for any focal neurologic complaints. PSYCHIATRIC: Negative for anxiety, panic, depression. [facility] Past Medical History Medical History Anemia Arthritis Chronic low back pain Chronic pain syndrome Colitis Diverticulitis Gastric ulcer GERD (gastroesophageal reflux disease) Glaucoma HLD (hyperlipidemia) HTN (hypertension) Pancreatitis Pneumonia Right rotator cuff tear Right rotator cuff tear arthropathy Seasonal allergies Surgical History Surgical History H/O bilateral cataract extraction H/O inguinal hernia repair 08/02/22 Robotic laparoscopic right inguinal hernia repair with mesh H/O lumbar discectomy H/O removal of cyst History of cardiac catheterization History of total left hip arthroplasty Hx of appendectomy Hx of cholecystectomy Hx of tonsillectomy Status post total knee replacement, left Family History Family History Sibling Family history of congenital heart disease Family history of arthritis Father Family history of arthritis Mother Family history of malignant neoplasm Other Diabetes mellitus Family history of cardiovascular disease Family history of kidney disease Hypertension Social History Social History Social History: Lives at home with her . She is a full code. She nominates her daughter to be the individual making medical decisions for her if she is unable. She rarely drinks alcohol. Lifelong nonsmoker. No drug use. Smoking status: Never smoker Alcohol intake: never Substance use: never Substance use type: does not use Lack of Transportation: No Lack of Food: Never True Current Housing: I Have Housing Concerned About Future Housing: No Difficulty Paying Gas/Electric Bills: No Difficulty Paying for Meds: No Currently Unemployed: No Education: High School Diploma/GED Difficulty w/ Childcare or Family Care: No L
[2022-11-06] VITALS (14 sets, daily range): BP systolic 148–184; BP diastolic 55–67; PULSE 58–96; RESP 16–20; TEMP 36.4–37.2; O2SAT 94–97; BMI 24.8
[2022-11-06 00:07] LABS: Anion Gap 4 mmol/L (8-16); Blood Urea Nitrogen 13 mg/dL (7-17); Carbon Dioxide 33 mmol/L (22-30); Chloride 80 mmol/L (98-107); Estimated Glomerular Filt Rate > 60; Glucose 112 mg/dL (65-110); Potassium 3.2 mmol/L (3.4-5.0); Sodium 117 mmol/L (137-145)
[2022-11-06] MEDS: SODIUM CHLORIDE 0.9% IV 1,000 ML 100 ML IV CONT (00:44)
[2022-11-06] MEDS: KCL 20 MEQ/SW 100 ML 100 ML 50 MEQ IVPB (00:44)
[2022-11-06 05:12] LABS: Anion Gap 5 mmol/L (8-16); Blood Urea Nitrogen 11 mg/dL (7-17); Calcium 8.2 mg/dL (8.4-10.2); Carbon Dioxide 33 mmol/L (22-30); Chloride 82 mmol/L (98-107); Estimated Glomerular Filt Rate > 60; Glucose 95 mg/dL (65-110); Potassium 3.5 mmol/L (3.4-5.0); Sodium 120 mmol/L (137-145)
[2022-11-06] MEDS: LEVOTHYROXINE SODIUM 75 MCG TABLET PO (05:43)
[2022-11-06 08:30] LABS: Sodium 119 mmol/L (137-145)
[2022-11-06] MEDS: HYDROXYCHLOROQUINE SULFATE 200 MG TABLET PO (08:56)
[2022-11-06] MEDS: FERROUS SULFATE 324 MG TABLET PO (08:56)
[2022-11-06] MEDS: DULoxetine HCL 30 MG CAPSULE.DR PO (08:56)
[2022-11-06] MEDS: OMEGA 3 POLYUNSAT FATTY ACIDS 1 GM CAP PO (08:56)
[2022-11-06] MEDS: ATORVASTATIN 20 MG TABLET PO (08:56)
[2022-11-06] MEDS: POTASSIUM CHLORIDE 20 MEQ TABLET 40 MEQ PO (09:00)
--- NOTE | 2022-11-06 09:23 | PM.IMPN ---
Progress Note: A&P Assessment and Plan (1) Acute hyponatremia: Code(s): E87.1 - Hypo-osmolality and hyponatremia Status: Acute Assessment and Plan: Acute on chronic hyponatremia; Likely multifactorial. Baseline hyponatremia with serum sodium levels in the 126 to 134 range habitually. current worsening sodium likely due to appropriate ADH release in the setting of ongoing GI losses and thiazide induced hyponatremia. Marginal improvement from 114 to 117 after administration of 1 L NACl 0.9%. Free water restriction 1.8L, normal saline @ 150mL/hour, nephrology consult pending (2) Hypokalemia: Code(s): E87.6 - Hypokalemia Status: Acute Assessment and Plan: Likely due to GI losses and thiazide diuretics, hold HCTZ Continue PO/IV suplementation Monitor serial chemistries (3) HTN (hypertension): Code(s): I10 - Essential (primary) hypertension Status: Acute Assessment and Plan: Hold thiazide, resume lisinopril and increase the calcium channel tadeo to 5 mg PO daily Blood pressures reviewed 11/06, still quite elevated Hydralazine as needed (4) Celiac disease: Code(s): K90.0 - Celiac disease Status: Acute Assessment and Plan: Nutritional evaluation (5) Diarrhea: Code(s): R19.7 - Diarrhea, unspecified Status: Acute Assessment and Plan: Recommend compliance with celiac diet and avoiding gluten containing foods Plan DVT prophylaxis with SCDs GI prophylaxis not indicated Code status full code Subjective Date/time seen: 11/06/22 09:23 Interval history: 81-year-old female with a past medical history including but not limited to celiac disease, osteoporosis, hypertension, dyslipidemia, depression, low vitamin D,?presented to the emergency department for evaluation of increased generalized weakness likely secondary to diarrhea and dehydration. No overnight events noted. No chest pain or shortness of breath. No nausea, vomiting or diarrhea. No fevers or chills. Patient is eager to go home. Review of Systems Review of Systems: 12 point review of systems was assessed and was negative except as noted in the HPI Exam Narrative: General: No acute distress, alert and oriented per baseline HEENT: Atraumatic, normocephalic, mucous membranes moist CV: Regular rate and rhythm, S1, S2 Lungs: Clear to auscultation bilaterally, no rales or crackles noted, no wheezes, good air entry Abdomen: Soft, nontender, nondistended Extremities: Normal to inspection Skin: No rashes noted, no lesions or wounds seen Psych: Euthymic, normal affect Objective Data Vital Signs Vital Signs: Vital Signs - 24 hr 11/05/22 17:55 11/05/22 20:52 11/05/22 21:40 Temperature 97.7 F 97.6 F Pulse Rate 73 71 93 Respiratory Rate 16 20 20 Blood Pressure 109/67 165/69 H 163/72 H Pulse Oximetry 98 96 97 Oxygen Delivery Room Air 11/05/22 22:00 11/05/22 22:56 11/05/22 22:30 Temperature 97.9 F Pulse Rate 77 81 81 Respiratory Rate 20 20 Blood Pressure 166/70 H Pulse Oximetry 97 97 Oxygen Delivery Room Air 11/06/22 00:00 11/06/22 02:00 11/06/22 04:00 Temperature Pulse Rate 58 L 68 68 Respiratory Rate 20 Blood Pressure Pulse Oximetry 97 Oxygen Delivery Room Air 11/06/22 04:00 11/06/22 04:00 11/06/22 06:00 Temperature 97.8 F Pulse Rate 96 71 67 Respiratory Rate 18 Blood Pressure 152/63 H Pulse Oximetry 96 Oxygen Delivery 11/06/22 07:26 Temperature 98.3 F Pulse Rate 65 Respiratory Rate 16 Blood Pressure 184/64 H Pulse Oximetry 94 Oxygen Delivery Intake/Output Intake/Output: Intake & Output 11/03/22 11/04/22 11/05/22 11/06/22 23:59 23:59 23:59 23:59 Intake Total 1100 250 Output Total 850 Balance 1100 -600 Meds/Results Medications: Active Medications Generic Name Dose Route Start Last Admin Trade Name Freq PRN Reason Stop
[2022-11-06] MEDS: amLODIPine BESYLATE 5 MG TABLET PO (09:33)
[2022-11-06] MEDS: lisinopriL 20 MG TABLET PO (09:33)
[2022-11-06 12:10] LABS: Anion Gap 4 mmol/L (8-16); Blood Urea Nitrogen 9 mg/dL (7-17); Calcium 8.1 mg/dL (8.4-10.2); Carbon Dioxide 31 mmol/L (22-30); Chloride 84 mmol/L (98-107); Estimated Glomerular Filt Rate > 60; Glucose 97 mg/dL (65-110); Potassium 3.7 mmol/L (3.4-5.0); Sodium 119 mmol/L (137-145)
[2022-11-06] MEDS: SODIUM CHLORIDE 0.9% IV 1,000 ML 60 ML IV CONT (12:15)
--- NOTE | 2022-11-06 12:15 | PM.CNNEP ---
Assessment and Plan Assessment and plan (1) Acute hyponatremia: Code(s): E87.1 - Hypo-osmolality and hyponatremia Status: Acute Assessment and Plan: acute on chronic sodium has been running ~ 126 - 134mmol/L since 2018 suspect acute worsening due to: prerenal factors (GI loss) ongoing use of HCTZ improvement noted with fluid restriction and normal saline goal of therapy is a change of 6 - 8mmol/L in 24 hours sodium should go higher than 122mmol/L before 6pm today TSH and cortisol okay check urine electrolytes, SPEP, UPEP and serum/urine osmolality follow trend of repeat sodium levels (2) Hypokalemia: Code(s): E87.6 - Hypokalemia Status: Acute Assessment and Plan: presumably secondary to GI losses and thiazide diuretic Continue PO/IV suplementation as needed HCTZ on hold follow repeat K+ check Mg intermittently (3) HTN (hypertension): Code(s): I10 - Essential (primary) hypertension Status: Acute Assessment and Plan: running on the higher side currently HCTZ on hold on lisinopril and amlodipine - titrate as needed (4) Celiac disease: Code(s): K90.0 - Celiac disease Status: Acute Assessment and Plan: known history continue to follow dietary restrictions (5) Diarrhea: Code(s): R19.7 - Diarrhea, unspecified Status: Acute Assessment and Plan: possibly precipitated by dietary indiscretion diet modifications in place contiune supportive therapy I will continue to follow the patient with you while she remains hospitalized make further recommendations during her hospital course. Thank you for allowing me to participate care of this patient. History of Present Illness Reason for Consult Consult date: 11/06/22 Reason for consult: hyponatremia Chief Complaint Chief complaint: Hypokalemia,Hyponatremia History of Present Illness Narrative: The patient is a 81-year-old female with a past medical history as outlined below who presented to [facility] Emergency Room for further evaluation of generalized weakness. The patient apparently has known celiac disease, and according to her family, is not always compliant with the gluten free diet. Do this issue, she has on and off issues with malabsorption and diarrhea. The patient states that she is not always compliant with a gluten free diet due to her lack of access to wound free products. She reports that yesterday she began having diarrhea and and seemed to self resolve within 24 hours. However along with the diarrhea, she reports decreased p.o. intake in association with progressive and significant weakness. She gave no complaints with regard to fevers, chills, abdominal pain, nausea, or vomiting. No other subjective symptoms reported. Given the ongoing weakness as mentioned, she presented to the ER for further assessment. Workup and evaluation emergency room demonstrated the patient be hemodynamically stable and in no acute distress aside from the aforementioned generalized weakness. Routine blood tests demonstrated significant hyponatremia worse than her baseline in association with hypokalemia. It was felt that volume depletion was playing a role with regard to these electrolyte abnormalities so received IV fluid resuscitation in the emergency room along with supplemental potassium to treat these electrolyte abnormalities. She was subsequently admitted to the hospital for further evaluation and therapy. Renal consultation was requested due to her acute on chronic hyponatremia. From review her records, the patient had some degree of chronic hyponatremia that dates back as far as 2017 if not longer with sodium levels that fluctuate anywhere from 126-134 millimoles per L. the patient reports that she is aware of this issue/problem and has been told on numerous occasion particularly when she receives preoperative labs for any type of proced
[2022-11-06 16:31] LABS: Creatinine Urine 67.6 mg/dL
[2022-11-06 16:38] LABS: Sodium 120 mmol/L (137-145)
[2022-11-06 18:53] LABS: Sodium 121 mmol/L (137-145)
--- NOTE | 2022-11-06 20:42 | P.PNCROSS_ITS ---
Event Note Event Note Event Note: RN notified me patient reporting restless legs . Magnesium, Hba1c and iron lauren el ordered.
[2022-11-06 23:24] LABS: Hemoglobin A1C 5.7 % (<5.7)
[2022-11-06 23:30] LABS: Anion Gap 5 mmol/L (8-16); Blood Urea Nitrogen 11 mg/dL (7-17); Calcium 7.7 mg/dL (8.4-10.2); Carbon Dioxide 27 mmol/L (22-30); Chloride 88 mmol/L (98-107); Estimated Glomerular Filt Rate > 60; Glucose 97 mg/dL (65-110); Magnesium 1.4 mg/dL (1.6-2.3); Potassium 3.8 mmol/L (3.4-5.0)
--- NOTE | 2022-11-06 23:45 | PM.EVENT ---
Event Note Event Note Event Note: Patient complains of restless legs Labs partial result reviewed Mag 1.4 K 3.8 Ca 7.7 Na 120 Plan Magnesium 2 G IV once Ca start CaCO3 200 mg PO daily Increase free water restriction from 1800 to 1500 mL/day Increase Nacl from 75 to 100 mL/hr Repeat Labs in AM Follow up iron panel in AM.
[2022-11-07] VITALS (15 sets, daily range): BP systolic 160–171; BP diastolic 62–68; PULSE 62–97; RESP 16–20; TEMP 36.5–37.1; O2SAT 96–99
[2022-11-07] MEDS: MAGNESIUM SULF 2 GM/WATER 50ML 2 GM/50 ML BAG IVPB (00:10)
[2022-11-07 00:25] LABS: Iron 53 ug/dL (37-170)
[2022-11-07 00:35] LABS: Percent Iron Saturation 21 % (20-50)
[2022-11-07 04:52] LABS: Basophils Absolute Auto 0.1 K/mm3 (0.0-0.1); Basophils Percent Auto 0.5 % (0.2-1.2); Eosinophils Absolute Auto 0.1 K/mm3 (0-0.3); Eosinophils Percent Auto 0.9 % (0-4.4); Hematocrit 29.7 % (37.0-47.0); Hemoglobin 10.2 g/dL (12.0-15.0); Immature Granulocyte Absolute 0.72 K/mm3 (0.00-0.031); Immature Granulocyte Percent A 4.9 % (0-0.5); Lymphocytes Absolute Auto 1.75 K/mm3 (0.9-3.2); Lymphocytes Percent Auto 11.8 % (18.3-44.2); Mean Corpuscular HGB Conc 34.3 g/dl (32-36); Mean Corpuscular Hemoglobin 28.2 pg (26-34); Mean Platelet Volume 7.7 fl (7.4-10.4); Monocytes Percent Auto 6.8 % (2.6-8.5); Neutrophils Absolute Auto 11.1 K/mm3 (1.3-6.7); Neutrophils Percent Auto 75.1 % (45.5-73.1); Platelet Count Result 406 k/mm3 (150-375); Red Blood Count 3.62 M/mm3 (4.2-5.4); Red Cell Distribution Width 14.8 % (11.5-14.5); White Blood Count 14.8 K/mm3 (4.5-10.0)
[2022-11-07] MEDS: LEVOTHYROXINE SODIUM 75 MCG TABLET PO (05:02)
[2022-11-07 05:17] LABS: Alanine Aminotransferase 44 U/L (6-35); Albumin Level 3.1 g/dL (3.5-5.1); Alkaline Phosphatase 73 U/L (38-126); Anion Gap 4 mmol/L (8-16); Aspartate Amino Transferase 60 U/L (14-36); Bilirubin,Total 0.5 mg/dL (0.2-1.3); Blood Urea Nitrogen 9 mg/dL (7-17); Calcium 7.7 mg/dL (8.4-10.2); Carbon Dioxide 26 mmol/L (22-30); Chloride 90 mmol/L (98-107); Estimated Glomerular Filt Rate > 60; Glucose 94 mg/dL (65-110); Magnesium 2.1 mg/dL (1.6-2.3); Phosphorus 1.9 mg/dL (2.5-4.5); Potassium 3.7 mmol/L (3.4-5.0)
[2022-11-07] MEDS: CALCIUM CARBONATE (TUMS) 500 MG (200 MG ELEMENTAL) PO (08:58)
[2022-11-07] MEDS: FERROUS SULFATE 324 MG TABLET PO (08:58)
[2022-11-07] MEDS: amLODIPine BESYLATE 5 MG TABLET PO (08:59)
[2022-11-07] MEDS: ATORVASTATIN 20 MG TABLET PO (08:59)
[2022-11-07] MEDS: DULoxetine HCL 30 MG CAPSULE.DR PO (08:59)
[2022-11-07] MEDS: HYDROXYCHLOROQUINE SULFATE 200 MG TABLET PO (08:59)
[2022-11-07] MEDS: lisinopriL 20 MG TABLET PO (09:00)
[2022-11-07] MEDS: OMEGA 3 POLYUNSAT FATTY ACIDS 1 GM CAP PO (09:00)
[2022-11-07] MEDS: SODIUM CHLORIDE 0.9% IV 1,000 ML 75 ML IV CONT (09:03)
[2022-11-07] MEDS: SODIUM CHLORIDE 1 GM TABLET PO ×2 (09:34→17:27)
--- NOTE | 2022-11-07 11:46 | PM.IMPN ---
Progress Note: A&P Assessment and Plan (1) Acute hyponatremia: Code(s): E87.1 - Hypo-osmolality and hyponatremia Status: Acute Assessment and Plan: Acute on chronic hyponatremia; Likely multifactorial. Baseline hyponatremia with serum sodium levels in the 126 to 134 range habitually. current worsening sodium likely due to appropriate ADH release in the setting of ongoing GI losses and thiazide induced hyponatremia. Marginal improvement from 114 to 117 after administration of 1 L NACl 0.9%. Free water restriction 1.8L, normal saline @ 150mL/hour, nephrology consult pending 11/07: unchanged at 120 today, NaCl tabs added by nephrology, recheck pending, likely component of SIADH? (2) Hypokalemia: Code(s): E87.6 - Hypokalemia Status: Acute Assessment and Plan: Likely due to GI losses and thiazide diuretics, hold HCTZ Continue PO/IV suplementation Monitor serial chemistries (3) HTN (hypertension): Code(s): I10 - Essential (primary) hypertension Status: Acute Assessment and Plan: Hold thiazide, resume lisinopril and increase the calcium channel tadeo to 5 mg PO daily Blood pressures reviewed 11/07, still quite elevated Hydralazine as needed (4) Celiac disease: Code(s): K90.0 - Celiac disease Status: Acute Assessment and Plan: Nutritional evaluation (5) Diarrhea: Code(s): R19.7 - Diarrhea, unspecified Status: Acute Assessment and Plan: Recommend compliance with celiac diet and avoiding gluten containing foods Plan DVT prophylaxis with SCDs GI prophylaxis not indicated Code status full code Subjective Date/time seen: 11/07/22 11:46 Interval history: 81-year-old female with a past medical history including but not limited to celiac disease, osteoporosis, hypertension, dyslipidemia, depression, low vitamin D,?presented to the emergency department for evaluation of increased generalized weakness likely secondary to diarrhea and dehydration. No overnight events noted. No chest pain or shortness of breath. No nausea, vomiting or diarrhea. No fevers or chills. Patient is eager to go home and very upset she is still here. Still feels weak. Review of Systems Review of Systems: 12 point review of systems was assessed and was negative except as noted in the HPI Exam Narrative: General: No acute distress, alert and oriented per baseline HEENT: Atraumatic, normocephalic, mucous membranes moist CV: Regular rate and rhythm, S1, S2 Lungs: Clear to auscultation bilaterally, no rales or crackles noted, no wheezes, good air entry Abdomen: Soft, nontender, nondistended Extremities: Normal to inspection Skin: No rashes noted, no lesions or wounds seen Psych: Euthymic, normal affect Objective Data Vital Signs Vital Signs: Vital Signs - 24 hr 11/06/22 12:00 11/06/22 16:00 11/06/22 12:00 Temperature 98.3 F 98.9 F Pulse Rate 77 71 74 Respiratory Rate 16 18 Blood Pressure 150/60 H 152/57 H Pulse Oximetry 96 97 Oxygen Delivery 11/06/22 16:00 11/06/22 14:00 11/06/22 12:00 Temperature Pulse Rate 78 82 Respiratory Rate Blood Pressure Pulse Oximetry Oxygen Delivery Room Air 11/06/22 18:00 11/06/22 16:00 11/06/22 20:00 Temperature 97.9 F Pulse Rate 78 70 Respiratory Rate 18 Blood Pressure 148/67 H Pulse Oximetry 97 Oxygen Delivery Room Air 11/06/22 20:00 11/06/22 20:00 11/06/22 22:00 Temperature Pulse Rate 70 69 76 Respiratory Rate 18 Blood Pressure Pulse Oximetry 97 Oxygen Delivery Room Air 11/06/22 23:31 11/07/22 00:00 11/07/22 00:00 Temperature 97.6 F Pulse Rate 70 70 72 Respiratory Rate 18 18 Blood Pressure 170/55 H Pulse Oximetry 97 97 Oxygen Delivery Room Air 11/07/22 02:00 11/07/22 04:00 11/07/22 04:00 Temperature Pulse Rate 71 71 66 Respiratory Rate 18 Blood Pressure Pulse Ox
--- NOTE | 2022-11-07 12:34 | PM.PNNEP ---
Progress Note: A&P Assessment and Plan (1) Hyponatremia: Code(s): E87.1 - Hypo-osmolality and hyponatremia Status: Acute Assessment and Plan: acute on chronic sodium has been running ~ 126 - 134mmol/L since 2018 suspect acute worsening due to: prerenal factors (GI loss) ongoing use of HCTZ improvement noted with fluid restriction and normal saline goal of therapy is a change of 6 - 8mmol/L in 24 hours - this was achieved evaluation to date: TSH and cortisol okay SPEP, UPEP and serum/urine osmolality pending urine electrolytes pending consider 3% saline start salt tabs follow trend of repeat sodium levels (2) Hypokalemia: Code(s): E87.6 - Hypokalemia Status: Acute Assessment and Plan: presumably secondary to GI losses and thiazide diuretic Continue PO/IV suplementation as needed HCTZ on hold follow repeat K+ check Mg intermittently (3) HTN (hypertension): Code(s): I10 - Essential (primary) hypertension Status: Acute Assessment and Plan: running on the higher side currently HCTZ on hold on lisinopril and amlodipine - titrate as needed (4) Celiac disease: Code(s): K90.0 - Celiac disease Status: Acute Assessment and Plan: known history continue to follow dietary restrictions (5) Diarrhea: Code(s): R19.7 - Diarrhea, unspecified Status: Acute Assessment and Plan: possibly precipitated by dietary indiscretion diet modifications in place contiune supportive therapy Will continue to follow. Subjective Date/time seen: 11/07/22 12:34 Interval history: Follow-up for acute on chronic hyponatremia. Sodium doing better but not back to baseline as of yet; overall, she feels better but report some weakness and fatigue; anxious for discharge in general; no other acute issue/events overnight or earlier this morning. Exam Narrative: General: elderly but WD/WN female in NAD Heart: normal S1 and S2; no rub Lungs: clear to auscultation Abdomen: soft, nontender, nondistended, positive bowel sounds Extremities: no cyanosis or clubbing; no edema Skin: warm and dry Objective Data Vital Signs Vital Signs: Vital Signs Temp Pulse Resp BP Pulse Ox O2 Del Method 11/07/22 12:00 98.3 F 77 18 160/68 H 97 11/07/22 09:06 96 Room Air 11/07/22 08:00 98.4 F 72 18 171/64 H 96 11/07/22 06:00 62 11/07/22 04:00 97.8 F 97 20 160/68 H 97 11/07/22 04:00 66 11/07/22 04:00 71 18 97 Room Air 11/07/22 02:00 71 11/07/22 00:00 72 11/07/22 00:00 70 18 97 Room Air 11/06/22 23:31 97.6 F 70 18 170/55 H 97 11/06/22 22:00 76 11/06/22 20:00 69 11/06/22 20:00 70 18 97 Room Air 11/06/22 20:00 97.9 F 70 18 148/67 H 97 11/06/22 16:00 Room Air 11/06/22 18:00 78 11/06/22 14:00 82 11/06/22 16:00 78 11/06/22 16:00 98.9 F 71 18 152/57 H 97 Intake/Output Intake/Output: Intake & Output 11/04/22 11/05/22 11/06/22 11/07/22 23:59 23:59 23:59 23:59 Intake Total 1100 1690 1550 Output Total 1650 1150 Balance 1100 40 400 Meds/Results Medications: Active Medications Generic Name Dose Route Start Last Admin Trade Name Javierq PRN Reason Stop Dose Admin Amlodipine Besylate 5 mg 11/06/22 09:00 11/07/22 08:59 Amlodipine Besylate 5 Mg Tablet PO 5 mg DAILY MICHAEL Administration Atorvastatin Calcium 20 mg 11/06/22 09:00 11/07/22 08:59 Atorvastatin 20 Mg Tablet PO 20 mg DAILY MICHAEL Administration Calcium Carbonate 200 mg 11/07/22 08:00 11/07/22 08:58 Calcium Carbonate (Tums) 500 Mg (200 Mg Elemental) PO 200 mg DAILY@0800 MICHAEL Administration Duloxetine HCl 30 mg 11/06/22 09:00 11/07/22 08:59 Duloxetine Hcl 30 Mg Capsule.Dr PO 30 mg DAILY MICHAEL Administration Ferrous Sulfate 324 mg 11/06/22 08:00 11/07/22 08:58
--- NOTE | 2022-11-07 12:34 | P.PNNP_ITS ---
Progress Note: A&P Assessment and Plan (1) Hyponatremia: Code(s): E87.1 - Hypo-osmolality and hyponatremia Status: Acute Assessment and Plan: * acute on chronic * sodium has been running ~ 126 - 134mmol/L since 2018 * suspect acute worsening due to: * prerenal factors (GI loss) * ongoing use of HCTZ * improvement noted with fluid restriction and normal saline * goal of therapy is a change of 6 - 8mmol/L in 24 hours - this was achieved * evaluation to date: * TSH and cortisol okay * SPEP, UPEP and serum/urine osmolality pending * urine electrolytes pending * consider 3% saline * start salt tabs * follow trend of repeat sodium levels (2) Hypokalemia: Code(s): E87.6 - Hypokalemia Status: Acute Assessment and Plan: * presumably secondary to GI losses and thiazide diuretic * Continue PO/IV suplementation as needed * HCTZ on hold * follow repeat K+ * check Mg intermittently (3) HTN (hypertension): Code(s): I10 - Essential (primary) hypertension Status: Acute Assessment and Plan: * running on the higher side currently * HCTZ on hold * on lisinopril and amlodipine - titrate as needed (4) Celiac disease: Code(s): K90.0 - Celiac disease Status: Acute Assessment and Plan: * known history * continue to follow dietary restrictions (5) Diarrhea: Code(s): R19.7 - Diarrhea, unspecified Status: Acute Assessment and Plan: * possibly precipitated by dietary indiscretion * diet modifications in place * contiune supportive therapy Will continue to follow. Subjective Date/time seen: 11/07/22 12:34 Interval history: Follow-up for acute on chronic hyponatremia. Sodium doing better but not back to baseline as of yet; overall, she feels better but report some weakness and fatigue; anxious for discharge in general; no other acute issue/events overnight or earlier this morning. Exam Narrative: General: elderly but WD/WN female in NAD Heart: normal S1 and S2; no rub Lungs: clear to auscultation Abdomen: soft, nontender, nondistended, positive bowel sounds Extremities: no cyanosis or clubbing; no edema Skin: warm and dry Objective Data Vital Signs Vital Signs: Vital Signs Temp Pulse Resp BP Pulse Ox O2 Del Method 11/07/22 12:00 98.3 F 77 18 160/68 H 97 11/07/22 09:06 96 Room Air 11/07/22 08:00 98.4 F 72 18 171/64 H 96 11/07/22 06:00 62 11/07/22 04:00 97.8 F 97 20 160/68 H 97 11/07/22 04:00 66 11/07/22 04:00 71 18 97 Room Air 11/07/22 02:00 71 11/07/22 00:00 72 11/07/22 00:00 70 18 97 Room Air 11/06/22 23:31 97.6 F 70 18 170/55 H 97 11/06/22 22:00 76 11/06/22 20:00 69 11/06/22 20:00 70 18 97 Room Air 11/06/22 20:00 97.9 F 70 18 148/67 H 97 11/06/22 16:00 Room Air 11/06/22 18:00 78 11/06/22 14:00 82 11/06/22 16:00 78 11/06/22 16:00 98.9 F 71 18 152/57 H 97 Intake/Output Intake/Output: Intake & Output 11/04/22 11/05/22 11/06/22 11/07/22 23:59 23:59 23:59 23:59 Intake Total
[2022-11-07 13:33] LABS: Sodium 120 mmol/L (137-145)
[2022-11-07 13:35] LABS: Sodium 120 mmol/L (137-145)
[2022-11-07 14:08] LABS: Sodium 119 mmol/L (137-145)
[2022-11-07] MEDS: SODIUM CHLORIDE 3% 150 ML 50 ML IV CONT (15:30)
[2022-11-07 19:32] LABS: Sodium 121 mmol/L (137-145)
[2022-11-07 23:58] LABS: Sodium 119 mmol/L (137-145)
[2022-11-08] VITALS (12 sets, daily range): BP systolic 152–172; BP diastolic 55–69; PULSE 63–76; RESP 16–28; TEMP 36.4–37.2; O2SAT 96–99
[2022-11-08] MEDS: SODIUM CHLORIDE 3% 150 ML 50 ML IV CONT ×2 (00:51→12:06)
[2022-11-08 04:51] LABS: Hemoglobin 10.1 g/dL (12.0-15.0); Mean Corpuscular HGB Conc 34.8 g/dl (32-36); Mean Corpuscular Hemoglobin 28.8 pg (26-34); Mean Corpuscular Volume 82.6 fl (80-100); Mean Platelet Volume 7.6 fl (7.4-10.4); Platelet Count Result 393 k/mm3 (150-375); Red Blood Count 3.51 M/mm3 (4.2-5.4); Red Cell Distribution Width 14.9 % (11.5-14.5); White Blood Count 12.2 K/mm3 (4.5-10.0)
[2022-11-08 05:04] LABS: Alanine Aminotransferase 36 U/L (6-35); Albumin Level 2.9 g/dL (3.5-5.1); Alkaline Phosphatase 60 U/L (38-126); Anion Gap 3 mmol/L (8-16); Aspartate Amino Transferase 47 U/L (14-36); Bilirubin,Total 0.5 mg/dL (0.2-1.3); Blood Urea Nitrogen 6 mg/dL (7-17); Calcium 7.7 mg/dL (8.4-10.2); Carbon Dioxide 27 mmol/L (22-30); Chloride 92 mmol/L (98-107); Estimated Glomerular Filt Rate > 60; Glucose 90 mg/dL (65-110); Potassium 3.3 mmol/L (3.4-5.0); Sodium 122 mmol/L (137-145)
[2022-11-08 05:28] LABS: Eosinophils Absolute Manual 0.24 K/mm3 (0.02-0.5); Eosinophils Percent Manual 2 % (0-4); Lymphocytes Absolute Manual 1.22 K/mm3 (1.1-4.5); Neutrophils Percent Manual 50 % (46-73); Total Cells Counted 100
[2022-11-08 05:29] LABS: Anisocytosis 2+ (NORMAL); Burr Cells 3+ (NORMAL); Hypersegmented Neutrophils Present; Platelet Clumps Present; Platelet Estimate Adequate (Adequate); Poikilocytosis 3+ (NORMAL); Smudge Cells PRESENT
[2022-11-08 05:31] LABS: Schistocytes None Seen (NORMAL)
[2022-11-08 05:32] LABS: Band Neutrophils Percent 36 % (0-6); Monocytes Percent Manual 2 % (3-9); Neutrophils Absolute Manual 10.49 K/mm3 (1.7-7.2)
[2022-11-08] MEDS: LEVOTHYROXINE SODIUM 75 MCG TABLET PO (06:13)
--- NOTE | 2022-11-08 08:35 | PM.IMPN ---
Progress Note: A&P Assessment and Plan (1) Acute hyponatremia: Code(s): E87.1 - Hypo-osmolality and hyponatremia Status: Acute Assessment and Plan: Acute on chronic hyponatremia; Likely multifactorial. Baseline hyponatremia with serum sodium levels in the 126 to 134 range habitually. current worsening sodium likely due to appropriate ADH release in the setting of ongoing GI losses and thiazide induced hyponatremia. Marginal improvement from 114 to 117 after administration of 1 L NACl 0.9%. Free water restriction 1.8L, normal saline @ 150mL/hour, nephrology consult pending 11/07: unchanged at 120 today, NaCl tabs added by nephrology, recheck pending, likely component of SIADH? 11/08: received 3% NS, Na 122 today, d/c soon, defer management to nephro (2) Hypokalemia: Code(s): E87.6 - Hypokalemia Status: Acute Assessment and Plan: Likely due to GI losses and thiazide diuretics, hold HCTZ Continue PO/IV suplementation Monitor serial chemistries (3) HTN (hypertension): Code(s): I10 - Essential (primary) hypertension Status: Acute Assessment and Plan: Hold thiazide, resume lisinopril and increase the calcium channel tadeo to 5 mg PO daily Blood pressures reviewed 11/08, still quite elevated Hydralazine as needed (4) Celiac disease: Code(s): K90.0 - Celiac disease Status: Acute Assessment and Plan: Nutritional evaluation (5) Diarrhea: Code(s): R19.7 - Diarrhea, unspecified Status: Acute Assessment and Plan: Recommend compliance with celiac diet and avoiding gluten containing foods Plan DVT prophylaxis with SCDs GI prophylaxis not indicated Code status full code Subjective Date/time seen: 11/08/22 08:35 Interval history: 81-year-old female with a past medical history including but not limited to celiac disease, osteoporosis, hypertension, dyslipidemia, depression, low vitamin D,?presented to the emergency department for evaluation of increased generalized weakness likely secondary to diarrhea and dehydration. 11/07: No overnight events noted. No chest pain or shortness of breath. No nausea, vomiting or diarrhea. No fevers or chills. Patient is eager to go home and very upset she is still here. Still feels weak. 11/08: Unchanged, eager to go home, feeling extremely depressed and worried because she feels fine and is missing her outpatient appointment and her cannot find her appt book. Review of Systems Review of Systems: 12 point review of systems was assessed and was negative except as noted in the HPI Exam Narrative: General: No acute distress, alert and oriented per baseline HEENT: Atraumatic, normocephalic, mucous membranes moist CV: Regular rate and rhythm, S1, S2 Lungs: Clear to auscultation bilaterally, no rales or crackles noted, no wheezes, good air entry Abdomen: Soft, nontender, nondistended Extremities: Normal to inspection Skin: No rashes noted, no lesions or wounds seen Psych: Euthymic, normal affect Objective Data Vital Signs Vital Signs: Vital Signs - 24 hr 11/07/22 09:06 11/07/22 12:00 11/07/22 10:00 Temperature 98.3 F Pulse Rate 77 62 Respiratory Rate 18 Blood Pressure 160/68 H Pulse Oximetry 96 97 Oxygen Delivery Room Air 11/07/22 12:00 11/07/22 14:00 11/07/22 16:00 Temperature Pulse Rate 73 92 82 Respiratory Rate Blood Pressure Pulse Oximetry Oxygen Delivery 11/07/22 16:00 11/07/22 18:00 11/07/22 19:54 Temperature 98.7 F 97.7 F Pulse Rate 74 71 80 Respiratory Rate 18 16 Blood Pressure 162/63 H 160/62 H Pulse Oximetry 96 97 Oxygen Delivery 11/07/22 20:00 11/07/22 20:00 11/07/22 22:00 Temperature Pulse Rate 76 76 78 Respiratory Rate 16 Blood Pressure Pulse Oximetry 97 Oxygen Delivery Room Air 11/07/22 23:17 11/08/22 00:00 11/08/22 00:00 Temperature 98.1 F Puls
[2022-11-08] MEDS: SODIUM CHLORIDE 1 GM TABLET PO ×2 (08:49→12:05)
[2022-11-08] MEDS: DULoxetine HCL 30 MG CAPSULE.DR PO (08:49)
[2022-11-08] MEDS: HYDROXYCHLOROQUINE SULFATE 200 MG TABLET PO (08:49)
[2022-11-08] MEDS: OMEGA 3 POLYUNSAT FATTY ACIDS 1 GM CAP PO (08:49)
[2022-11-08] MEDS: CALCIUM CARBONATE (TUMS) 500 MG (200 MG ELEMENTAL) PO (08:49)
[2022-11-08] MEDS: FERROUS SULFATE 324 MG TABLET PO (08:49)
[2022-11-08] MEDS: amLODIPine BESYLATE 5 MG TABLET PO (08:49)
[2022-11-08] MEDS: lisinopriL 20 MG TABLET PO (08:49)
[2022-11-08] MEDS: ATORVASTATIN 20 MG TABLET PO (08:49)
[2022-11-08] MEDS: POTASSIUM CHLORIDE 20 MEQ TABLET 40 MEQ PO (08:53)
[2022-11-08 11:14] LABS: Sodium 120 mmol/L (137-145)
[2022-11-08] MEDS: hydrALAZINE HCL 20 MG/ML VIAL 10 MG IV PUSH (12:10)
--- NOTE | 2022-11-08 12:11 | P.PNNP_ITS ---
Progress Note: A&P Assessment and Plan (1) Hyponatremia: Code(s): E87.1 - Hypo-osmolality and hyponatremia Status: Acute Assessment and Plan: * acute on chronic * sodium has been running ~ 126 - 134mmol/L since 2018 * suspect acute worsening due to: * prerenal factors (GI loss) * ongoing use of HCTZ * improvement noted with fluid restriction and normal saline * goal of therapy is a change of 6 - 8mmol/L in 24 hours - this was achieved * evaluation to date: * TSH and cortisol okay * SPEP, UPEP and serum/urine osmolality pending * urine electrolytes pending * s/p 3% saline along with starting salt tabs (will increase dosage * follow trend of repeat sodium levels (2) Hypokalemia: Code(s): E87.6 - Hypokalemia Status: Acute Assessment and Plan: * presumably secondary to GI losses and thiazide diuretic * Continue PO/IV suplementation as needed * HCTZ on hold * follow repeat K+ * check Mg intermittently (3) HTN (hypertension): Code(s): I10 - Essential (primary) hypertension Status: Acute Assessment and Plan: * running on the higher side currently * HCTZ on hold * on lisinopril and amlodipine - titrate as needed (4) Celiac disease: Code(s): K90.0 - Celiac disease Status: Acute Assessment and Plan: * known history * continue to follow dietary restrictions (5) Diarrhea: Code(s): R19.7 - Diarrhea, unspecified Status: Acute Assessment and Plan: * possibly precipitated by dietary indiscretion * diet modifications in place * contiune supportive therapy I would not be opposed to discharge if her sodium remains stable (if not better) with current interventions. Will continue to follow. Subjective Date/time seen: 11/08/22 12:11 Interval history: Follow-up for acute on chronic hyponatremia. Sodium resistant to interventions to date (intermittent 3% saline, salt tablets, and fluid restriction); still quite anxious to go home and I informed her of my concerns that sodium has not been very stable in the last 24 - 48 hours. Exam Narrative: General: elderly but WD/WN female in NAD Heart: normal S1 and S2; no rub Lungs: clear to auscultation Abdomen: soft, nontender, nondistended, positive bowel sounds Extremities: no cyanosis or clubbing; no edema Skin: warm and intact Objective Data Vital Signs Vital Signs: Vital Signs Temp Pulse Resp BP Pulse Ox O2 Del Method 11/08/22 12:00 72 11/08/22 12:00 Room Air 11/08/22 12:00 98.3 F 72 18 163/67 H 97 11/08/22 10:00 64 11/08/22 08:00 Room Air 11/08/22 08:00 73 11/08/22 07:43 98.2 F 63 18 172/63 H 98 11/08/22 06:00 68 11/08/22 04:00 66 20 98 Room Air 11/08/22 04:00 66 11/08/22 04:00 98.2 F 70 20 159/66 H 98 11/08/22 02:00 68 11/08/22 00:00 69 20 99 Room Air 11/08/22 00:00 69 11/07/22 23:17 98.1 F 70 20 165/65 H 99 11/07/22 22:00 78 11/07/22 20:00 76 16 97 Room Air 11/07/22 20:00 76 11/07/22 19:54 97.7 F 80 16 160/62 H 97 11/07/22 18:00 71 11/07/22 16:00 98.7 F 74 18 162/63 H 96 11/07/22 16:
--- NOTE | 2022-11-08 12:11 | PM.PNNEP ---
Progress Note: A&P Assessment and Plan (1) Hyponatremia: Code(s): E87.1 - Hypo-osmolality and hyponatremia Status: Acute Assessment and Plan: acute on chronic sodium has been running ~ 126 - 134mmol/L since 2018 suspect acute worsening due to: prerenal factors (GI loss) ongoing use of HCTZ improvement noted with fluid restriction and normal saline goal of therapy is a change of 6 - 8mmol/L in 24 hours - this was achieved evaluation to date: TSH and cortisol okay SPEP, UPEP and serum/urine osmolality pending urine electrolytes pending s/p 3% saline along with starting salt tabs (will increase dosage follow trend of repeat sodium levels (2) Hypokalemia: Code(s): E87.6 - Hypokalemia Status: Acute Assessment and Plan: presumably secondary to GI losses and thiazide diuretic Continue PO/IV suplementation as needed HCTZ on hold follow repeat K+ check Mg intermittently (3) HTN (hypertension): Code(s): I10 - Essential (primary) hypertension Status: Acute Assessment and Plan: running on the higher side currently HCTZ on hold on lisinopril and amlodipine - titrate as needed (4) Celiac disease: Code(s): K90.0 - Celiac disease Status: Acute Assessment and Plan: known history continue to follow dietary restrictions (5) Diarrhea: Code(s): R19.7 - Diarrhea, unspecified Status: Acute Assessment and Plan: possibly precipitated by dietary indiscretion diet modifications in place contiune supportive therapy I would not be opposed to discharge if her sodium remains stable (if not better) with current interventions. Will continue to follow. Subjective Date/time seen: 11/08/22 12:11 Interval history: Follow-up for acute on chronic hyponatremia. Sodium resistant to interventions to date (intermittent 3% saline, salt tablets, and fluid restriction); still quite anxious to go home and I informed her of my concerns that sodium has not been very stable in the last 24 - 48 hours. Exam Narrative: General: elderly but WD/WN female in NAD Heart: normal S1 and S2; no rub Lungs: clear to auscultation Abdomen: soft, nontender, nondistended, positive bowel sounds Extremities: no cyanosis or clubbing; no edema Skin: warm and intact Objective Data Vital Signs Vital Signs: Vital Signs Temp Pulse Resp BP Pulse Ox O2 Del Method 11/08/22 12:00 72 11/08/22 12:00 Room Air 11/08/22 12:00 98.3 F 72 18 163/67 H 97 11/08/22 10:00 64 11/08/22 08:00 Room Air 11/08/22 08:00 73 11/08/22 07:43 98.2 F 63 18 172/63 H 98 11/08/22 06:00 68 11/08/22 04:00 66 20 98 Room Air 11/08/22 04:00 66 11/08/22 04:00 98.2 F 70 20 159/66 H 98 11/08/22 02:00 68 11/08/22 00:00 69 20 99 Room Air 11/08/22 00:00 69 11/07/22 23:17 98.1 F 70 20 165/65 H 99 11/07/22 22:00 78 11/07/22 20:00 76 16 97 Room Air 11/07/22 20:00 76 11/07/22 19:54 97.7 F 80 16 160/62 H 97 11/07/22 18:00 71 11/07/22 16:00 98.7 F 74 18 162/63 H 96 11/07/22 16:00 82 Intake/Output Intake/Output: Intake & Output 11/05/22 11/06/22 11/07/22 11/08/22 23:59 23:59 23:59 23:59 Intake Total 1100 1690 1790 1080 Output Total 1650 2900 800 Balance 1100 40 -1110 280 Meds/Results Medications: Active Medications Generic Name Dose Route Start Last Admin Trade Name Javierq PRN Reason Stop Dose Admin Amlodipine Besylate 5 mg 11/06/22 09:00 11/08/22 08:49 Amlodipine Besylate 5 Mg Tablet PO 5 mg DAILY MICHAEL Administration Atorvastatin Calcium 20 mg 11/06/22 09:00 11/08/22 08:49 Atorvastatin 20 Mg Tablet PO 20 mg DAILY MICHAEL Administration Calcium Carbonate 200 mg 11/07/22 08:00 11/08/22 08:49 Calcium Carbonate (Tums) 500 Mg (200 Mg Elemental) PO 200 mg
[2022-11-08] MEDS: LORazepam (*CRX) 0.5 MG TABLET PO (14:01)
--- NOTE | 2022-11-08 14:26 | PCPTNOTE ---
Addendum entered by Farheen Fontana, PT 11/08/22 14:56: Hospitalist contacted and OK DC of therapy orders. Original Note: Started PT evaluation. Then, patient refused and stated 'do I need to do this?' Patient was educated on her rights of refusing PT. Patient continues to decline and RN aware. Will contact hospitalist.
--- NOTE | 2022-11-08 15:27 | PCCCNOTE ---
On 11/08/22, the student, [Odalys Crowe ], provided care and completed [facility] documentation on this patient. I have reviewed the student's documentation and agree with the findings.
[2022-11-08 16:12] LABS: Sodium 122 mmol/L (137-145)
[2022-11-08] MEDS: SODIUM CHLORIDE 1 GM TABLET 1.5 GM PO (16:58)
[2022-11-08 19:47] LABS: Osmolality, Urine 429 mOsm/kg (50-1200)
[2022-11-08 20:57] LABS: Sodium 122 mmol/L (137-145)
--- NOTE | 2022-11-08 22:16 | PC.NURSE ---
This patient, Sandra Carlos, was transferred to [facility] on 11/08/22 at 2215. Personal belongings sent with patient. Report given to Sunny PATEL. Appropriate documentation sent with patient.
[2022-11-09 00:29] LABS: Sodium 122 mmol/L (137-145)
[2022-11-09] MEDS: SODIUM CHLORIDE 3% 55 ML IV CONT (01:54)
[2022-11-09] MEDS: LEVOTHYROXINE SODIUM 75 MCG TABLET PO (05:37)
[2022-11-09 06:23] VITALS: BP 148/70; PULSE 82; RESP 16; TEMP 36.9; O2SAT 97
[2022-11-09 06:35] LABS: Basophils Absolute Auto 0.1 K/mm3 (0.0-0.1); Basophils Percent Auto 0.6 % (0.2-1.2); Eosinophils Absolute Auto 0.2 K/mm3 (0-0.3); Eosinophils Percent Auto 1.7 % (0-4.4); Hematocrit 29.1 % (37.0-47.0); Hemoglobin 10.1 g/dL (12.0-15.0); Lymphocytes Absolute Auto 1.44 K/mm3 (0.9-3.2); Lymphocytes Percent Auto 14.3 % (18.3-44.2); Mean Corpuscular HGB Conc 34.7 g/dl (32-36); Mean Corpuscular Hemoglobin 28.8 pg (26-34); Mean Corpuscular Volume 82.9 fl (80-100); Mean Platelet Volume 7.9 fl (7.4-10.4); Monocytes Absolute Auto 0.8 K/mm3 (0.1-0.6); Monocytes Percent Auto 7.6 % (2.6-8.5); Neutrophils Absolute Auto 7.1 K/mm3 (1.3-6.7); Neutrophils Percent Auto 70.8 % (45.5-73.1); Platelet Count Result 424 k/mm3 (150-375); Red Blood Count 3.51 M/mm3 (4.2-5.4); Red Cell Distribution Width 15.4 % (11.5-14.5); White Blood Count 10.1 K/mm3 (4.5-10.0)
[2022-11-09 06:45] LABS: Alanine Aminotransferase 33 U/L (6-35); Albumin Level 2.9 g/dL (3.5-5.1); Alkaline Phosphatase 60 U/L (38-126); Anion Gap 3 mmol/L (8-16); Aspartate Amino Transferase 40 U/L (14-36); Bilirubin,Total 0.5 mg/dL (0.2-1.3); Blood Urea Nitrogen 6 mg/dL (7-17); Calcium 7.7 mg/dL (8.4-10.2); Carbon Dioxide 25 mmol/L (22-30); Chloride 96 mmol/L (98-107); Estimated Glomerular Filt Rate > 60; Glucose 88 mg/dL (65-110); Potassium 3.7 mmol/L (3.4-5.0); Sodium 124 mmol/L (137-145)
--- NOTE | 2022-11-09 08:36 | PM.PNNEP ---
Progress Note: A&P Assessment and Plan (1) Hyponatremia: Code(s): E87.1 - Hypo-osmolality and hyponatremia Status: Acute Assessment and Plan: slow improvement acute on chronic sodium has been running ~ 126 - 134mmol/L since 2018 suspect acute worsening due to: prerenal factors (GI loss) ongoing use of HCTZ mild improvement noted with fluid restriction and normal saline goal of therapy is a change of 6 - 8mmol/L in 24 hours - this was achieved evaluation to date: TSH and cortisol okay SPEP, UPEP and serum/urine osmolality pending urine electrolytes pending s/p 3% saline along with salt tabs follow trend of repeat sodium levels (2) Hypokalemia: Code(s): E87.6 - Hypokalemia Status: Acute Assessment and Plan: presumably secondary to GI losses and thiazide diuretic Continue PO/IV suplementation as needed HCTZ on hold follow repeat K+ check Mg intermittently (3) HTN (hypertension): Code(s): I10 - Essential (primary) hypertension Status: Acute Assessment and Plan: running on the higher side currently HCTZ on hold on lisinopril and amlodipine - titrate as needed (4) Celiac disease: Code(s): K90.0 - Celiac disease Status: Acute Assessment and Plan: known history continue to follow dietary restrictions (5) Diarrhea: Code(s): R19.7 - Diarrhea, unspecified Status: Acute Assessment and Plan: possibly precipitated by dietary indiscretion diet modifications in place contiune supportive therapy Not opposed to discharge since her sodium is close to baseline and no neurological issues related to her low sodium level -- would continues salt tabs for now with repeat outpatient labs by PCP early next week with the intention on trying to wean off the salt tabs if possible. Will continue to follow. Subjective Date/time seen: 11/09/22 08:36 Interval history: Follow-up for acute on chronic hyponatremia. Sodium relatively stable if not improving in the last 24 hours with further interventions (increased dose of salt tabs, fluid restriction, and 3% saline); no apparent issues or concerns at this time; no distress noted; happy about discharge today. Exam Narrative: General: elderly but WD/WN female in NAD Heart: normal S1 and S2; no rub Lungs: clear to auscultation Abdomen: soft, nontender, nondistended, positive bowel sounds Extremities: no cyanosis or clubbing; no edema Skin: warm and intact Objective Data Vital Signs Vital Signs: Vital Signs Temp Pulse Resp BP Pulse Ox O2 Del Method 11/09/22 08:44 Room Air 11/09/22 06:23 98.5 F 82 16 148/70 H 97 11/08/22 22:58 97.6 F 75 16 154/69 H 98 11/08/22 20:00 97 Room Air 11/08/22 20:10 98.9 F 76 28 H 153/59 H 97 11/08/22 16:00 98.9 F 70 18 152/55 H 96 Intake/Output Intake/Output: Intake & Output 11/06/22 11/07/22 11/08/22 11/09/22 23:59 23:59 23:59 23:59 Intake Total 1690 1790 1850 290 Output Total 1650 2900 1700 Balance 40 -1110 150 290 Meds/Results Medications: Active Medications Generic Name Dose Route Start Last Admin Trade Name Polly PRN Reason Stop Dose Admin Amlodipine Besylate 5 mg 11/06/22 09:00 11/09/22 08:48 Amlodipine Besylate 5 Mg Tablet PO 5 mg DAILY MICHAEL Administration Atorvastatin Calcium 20 mg 11/06/22 09:00 11/09/22 08:43 Atorvastatin 20 Mg Tablet PO 20 mg DAILY MICHAEL Administration Calcium Carbonate 200 mg 11/07/22 08:00 11/09/22 08:44 Calcium Carbonate (Tums) 500 Mg (200 Mg Elemental) PO 200 mg DAILY@0800 MICHAEL Administration Duloxetine HCl 30 mg 11/06/22 09:00 11/09/22 08:46 Duloxetine Hcl 30 Mg Capsule.Dr PO 30 mg DAILY MICHAEL Administration Ferrous Sulfate 324 mg 11/06/22 08:00 11/09/22 08:44 Ferrous Sulfate 324 Mg Tablet PO 324 mg DAILY@0800 [facility] Administration Fish Oil 1 gm 11/06
--- NOTE | 2022-11-09 08:36 | P.PNNP_ITS ---
Progress Note: A&P Assessment and Plan (1) Hyponatremia: Code(s): E87.1 - Hypo-osmolality and hyponatremia Status: Acute Assessment and Plan: * slow improvement * acute on chronic * sodium has been running ~ 126 - 134mmol/L since 2018 * suspect acute worsening due to: * prerenal factors (GI loss) * ongoing use of HCTZ * mild improvement noted with fluid restriction and normal saline * goal of therapy is a change of 6 - 8mmol/L in 24 hours - this was achieved * evaluation to date: * TSH and cortisol okay * SPEP, UPEP and serum/urine osmolality pending * urine electrolytes pending * s/p 3% saline along with salt tabs * follow trend of repeat sodium levels (2) Hypokalemia: Code(s): E87.6 - Hypokalemia Status: Acute Assessment and Plan: * presumably secondary to GI losses and thiazide diuretic * Continue PO/IV suplementation as needed * HCTZ on hold * follow repeat K+ * check Mg intermittently (3) HTN (hypertension): Code(s): I10 - Essential (primary) hypertension Status: Acute Assessment and Plan: * running on the higher side currently * HCTZ on hold * on lisinopril and amlodipine - titrate as needed (4) Celiac disease: Code(s): K90.0 - Celiac disease Status: Acute Assessment and Plan: * known history * continue to follow dietary restrictions (5) Diarrhea: Code(s): R19.7 - Diarrhea, unspecified Status: Acute Assessment and Plan: * possibly precipitated by dietary indiscretion * diet modifications in place * contiune supportive therapy Not opposed to discharge since her sodium is close to baseline and no neurological issues related to her low sodium level -- would continues salt tabs for now with repeat outpatient labs by PCP early next week with the intention on trying to wean off the salt tabs if possible. Will continue to follow. Subjective Date/time seen: 11/09/22 08:36 Interval history: Follow-up for acute on chronic hyponatremia. Sodium relatively stable if not improving in the last 24 hours with further interventions (increased dose of salt tabs, fluid restriction, and 3% saline); no apparent issues or concerns at this time; no distress noted; happy about discharge today. Exam Narrative: General: elderly but WD/WN female in NAD Heart: normal S1 and S2; no rub Lungs: clear to auscultation Abdomen: soft, nontender, nondistended, positive bowel sounds Extremities: no cyanosis or clubbing; no edema Skin: warm and intact Objective Data Vital Signs Vital Signs: Vital Signs Temp Pulse Resp BP Pulse Ox O2 Del Method 11/09/22 08:44 Room Air 11/09/22 06:23 98.5 F 82 16 148/70 H 97 11/08/22 22:58 97.6 F 75 16 154/69 H 98 11/08/22 20:00 97 Room Air 11/08/22 20:10 98.9 F 76 28 H 153/59 H 97 11/08/22 16:00 98.9 F 70 18 152/55 H 96 Intake/Output Intake/Output: Intake & Output 11/06/22 11/07/22 11/08/22 11/09/22 23:59 23:59 23:59 23:59 Intake Total 1690 1790 1850 290 Output Total 1650 2900 1700 Balance 40 -1110 150 290 Meds/Results Medications: Active Medications Generic Name Do
--- NOTE | 2022-11-09 08:39 | PM.DS ---
DS: Admitting Diagnosis Discharge Date 11/09/22 Admitting Diagnosis generalized weakness DS: Discharge Diagnosis Discharge Diagnosis (1) Acute hyponatremia: Code(s): E87.1 - Hypo-osmolality and hyponatremia Status: Acute Assessment and Plan: Acute on chronic hyponatremia; Likely multifactorial. Baseline hyponatremia with serum sodium levels in the 126 to 134 range habitually. current worsening sodium likely due to appropriate ADH release in the setting of ongoing GI losses and thiazide induced hyponatremia. Marginal improvement from 114 to 117 after administration of 1 L NACl 0.9%. Free water restriction 1.8L, normal saline @ 150mL/hour, nephrology consult pending 11/07: unchanged at 120 today, NaCl tabs added by nephrology, recheck pending, likely component of SIADH? 11/08: received 3% NS, Na 122 today, d/c soon, defer management to nephro 11/09: Na up to 124, d/c on salt tabs per nephro, repeeat BMP in 2 days (2) Hypokalemia: Code(s): E87.6 - Hypokalemia Status: Acute Assessment and Plan: Likely due to GI losses and thiazide diuretics, hold HCTZ Continue PO/IV suplementation Monitor serial chemistries (3) HTN (hypertension): Code(s): I10 - Essential (primary) hypertension Status: Acute Assessment and Plan: Hold thiazide, resume lisinopril and increase the calcium channel tadeo to 5 mg PO daily Blood pressures reviewed 11/09, stable Hydralazine as needed (4) Celiac disease: Code(s): K90.0 - Celiac disease Status: Acute Assessment and Plan: Nutritional evaluation (5) Diarrhea: Code(s): R19.7 - Diarrhea, unspecified Status: Acute Assessment and Plan: Recommend compliance with celiac diet and avoiding gluten containing foods Plan DVT prophylaxis with SCDs GI prophylaxis not indicated Code status full code DS: Summary Hospital Course Hospital Course: 81-year-old female with a past medical history including but not limited to celiac disease, osteoporosis, hypertension, dyslipidemia, depression, low vitamin D,?presented to the emergency department for evaluation of increased generalized weakness likely secondary to diarrhea and dehydration. Acute on chronic hyponatremia; Likely multifactorial. Baseline hyponatremia with serum sodium levels in the 126 to 134 range habitually. current worsening sodium likely due to appropriate ADH release in the setting of ongoing GI losses and thiazide induced hyponatremia. Marginal improvement from 114 to 117 after administration of 1 L NACl 0.9%. Free water restriction 1.8L, normal saline @ 150mL/hour, nephrology consult pending 11/07: unchanged at 120 today, NaCl tabs added by nephrology, recheck pending, likely component of SIADH? 11/08: received 3% NS, Na 122 today, d/c soon, defer management to nephro All symptoms resolved and patient was d/c in stable condition. See above and med rec for details. Time Spent with Patient Time attestation: Total time spent providing and/or coordinating discharge services: Exam Narrative: General: No acute distress, alert and oriented per baseline HEENT: Atraumatic, normocephalic, mucous membranes moist CV: Regular rate and rhythm, S1, S2 Lungs: Clear to auscultation bilaterally, no rales or crackles noted, no wheezes, good air entry Abdomen: Soft, nontender, nondistended Extremities: Normal to inspection Skin: No rashes noted, no lesions or wounds seen Psych: Euthymic, normal affect DS: Data Data Completed and Pending Labs on day of discharge: Labs from last 24 hours 11/09/22 11/09/22 11/08/22 05:48 00:10 20:37 WBC 10.1 H RBC 3.51 L Hgb 10.1 L Hct 29.1 L MCV 82.9 MCH 28.8 MCHC 34.7 RDW 15.4 H Plt Count 424 H MPV 7.9 Immature Gran % (Auto) 5.0 H Neut % (Auto) 70.8 Lymph % (Auto) 14.3 L [place] % (Auto) 7.6 Eos % (Auto) 1.7 Baso % (Auto) 0.6 Lymph # (Au
[2022-11-09] MEDS: ATORVASTATIN 20 MG TABLET PO (08:43)
[2022-11-09] MEDS: SODIUM CHLORIDE 1 GM TABLET 1.5 GM PO (08:44)
[2022-11-09] MEDS: OMEGA 3 POLYUNSAT FATTY ACIDS 1 GM CAP PO (08:44)
[2022-11-09] MEDS: HYDROXYCHLOROQUINE SULFATE 200 MG TABLET PO (08:44)
[2022-11-09] MEDS: CALCIUM CARBONATE (TUMS) 500 MG (200 MG ELEMENTAL) PO (08:44)
[2022-11-09] MEDS: FERROUS SULFATE 324 MG TABLET PO (08:44)
[2022-11-09] MEDS: DULoxetine HCL 30 MG CAPSULE.DR PO (08:46)
[2022-11-09] MEDS: lisinopriL 20 MG TABLET PO (08:48)
[2022-11-09] MEDS: amLODIPine BESYLATE 5 MG TABLET PO (08:48)
--- NOTE | 2022-11-09 09:34 | PC.NURSE ---
I, Rachel Cordoba ([facility] [place]), passed all of the meds at 0844 not JND.
--- NOTE | 2022-11-09 10:08 | PCOTNOTE ---
Patient declined to participate in therapy services. PT contacted Hospitalist to confirm cancelation of orders and discharge.
--- NOTE | 2022-11-09 13:05 | PC.NURSE ---
Pt is anxious to go home. Pt is A&O4 female who has participated and contributed in plan of care. Pt sodium level has increased today. Pt has reported no pain and expresses no needs at this time. Pt will discharge home. Pt has ambulated SBA with cane. Will continue to monitor pt until discharge.
[2022-11-10 15:12] LABS: Albumin 2.7 g/dL (3.8-4.8); Alpha 1 Globulin 0.4 g/dL (0.2-0.3); Alpha 2 Globulin 1.1 g/dL (0.5-0.9); Beta 1 Globulin 0.4 g/dL (0.4-0.6); Gamma Globulin 0.7 g/dL (0.8-1.7); Protein, Total 5.5 g/dL (6.1-8.1)
[2022-11-11 13:39] LABS: Creatinine, Random Urine 74 mg/dL (20-275); Total Protein/Creatinine Ratio 568 mg/g creat (24-184)
[2022-11-11 16:16] LABS: Chloride Rand Ur 80 mmol/L (32-290); Chloride/Creatinine Rand Ur 110 (38-318); Creatinine Random Urine 73 mg/dL (20-275)
== END 2022-11-09 13:55 | disposition home or self-care (01) | DRG 641 ==
LOC: ANHED 19:33 → ANHIMU 20:45 → ANH3MEDSUR 11-09 08:38 → ANHIMU 11-11 14:07
PROVIDERS: Internal Medicine Nephrology; Admitting Provider Internal Medicine; Emergency Provider Emergency Medicine; PCP Physician Assistant; Visit Provider Student in an Organized Health Care Education/Training Program
DX: E87.1 Hypo-osmolality and hyponatremia (principal); D64.9 Anemia, unspecified; E87.6 Hypokalemia; E55.9 Vitamin D deficiency, unspecified; E78.5 Hyperlipidemia, unspecified; F32.A Depression, unspecified; G89.4 Chronic pain syndrome; I10 Essential (primary) hypertension; K90.0 Celiac disease; M19.90 Unspecified osteoarthritis, unspecified site; M54.9 Dorsalgia, unspecified; K21.9 Gastro-esophageal reflux disease without esophagitis; M81.0 Age-related osteoporosis without current pathological fracture; R19.7 Diarrhea, unspecified; Z98.41 Cataract extraction status, right eye; Z98.42 Cataract extraction status, left eye; Z96.642 Presence of left artificial hip joint; Z96.652 Presence of left artificial knee joint; Z90.49 Acquired absence of other specified parts of digestive tract; Z91.118 Patient's noncompliance with dietary regimen for other reason
CPT/HCPCS: 36415; 71045; 80048; 80053; 81003; 82436; 82533; 82570; 82728; 83036; 83540; 83550; 83735; 83930; 83935; 84100; 84155; 84156; 84165; 84166; 84295; 84443; 85025; 93005; 96361; 96365; 96366; 99285; A9270; G0378; J0360; J3475; J3480; J7030; J7050; J7131

== ENCOUNTER 2023-02-11 10:18 | Outpatient (CLI) | payer MEDICARE, SELFPAY ==
--- NOTE | ~2023-02-11 | MM_ITS ---
EXAMINATION: MM screening tricia BI w rajeev HISTORY: Screening mammogram TECHNIQUE: Craniocaudal and mediolateral oblique 3-D tomosynthesis images were obtained and synthetic 2-D images were generated. CAD analysis was submitted and interpreted. COMPARISON: September 12, 2019 diagnostic bilateral mammogram and limited left breast ultrasound 08/28/2020, 08/18/2019 bilateral screening mammogram examinations BREAST PARENCHYMAL COMPOSITION: The breasts are heterogeneously dense, which may obscure small masses . FINDINGS: There is no evidence of suspicious mass, calcification, or architectural distortion to sugg est malignancy in either breast. There has been no suspicious interval change. IMPRESSION: 1. No mammographic evidence of malignancy. 2. Recommend routine screening mammography in one year. BI-RADS Category 1: Negative Reviewed, dictated and finalized at location A.
== END 2023-02-11 10:19 | disposition home or self-care (01) ==
PROVIDERS: PCP Physician Assistant; Visit Provider Physician Assistant
DX: Z12.31 Encounter for screening mammogram for malignant neoplasm of breast (principal)
CPT/HCPCS: 77063; 77067

== ENCOUNTER 2023-03-05 12:46 | Outpatient (CLI) | payer MEDICARE, SELFPAY ==
[2023-03-05 13:44] LABS: Hemoglobin 11.7 g/dL (12.0-15.0); Mean Corpuscular HGB Conc 33.4 g/dl (32-36); Mean Corpuscular Hemoglobin 30.2 pg (26-34); Mean Corpuscular Volume 90.2 fl (80-100); Mean Platelet Volume 8.3 fl (7.4-10.4); Platelet Count Result 396 k/mm3 (150-375); Red Blood Count 3.88 M/mm3 (4.2-5.4); Red Cell Distribution Width 14.1 % (11.5-14.5); White Blood Count 7.9 K/mm3 (4.5-10.0)
[2023-03-05 13:57] LABS: Alanine Aminotransferase 22 U/L (6-35); Albumin Level 4.2 g/dL (3.5-5.1); Alkaline Phosphatase 75 U/L (38-126); Anion Gap 5 mmol/L (8-16); Aspartate Amino Transferase 34 U/L (14-36); Bilirubin,Total 0.4 mg/dL (0.2-1.3); Blood Urea Nitrogen 9 mg/dL (7-17); Calcium 8.8 mg/dL (8.4-10.2); Carbon Dioxide 24 mmol/L (22-30); Chloride 98 mmol/L (98-107); Estimated Glomerular Filt Rate > 60; Glucose 96 mg/dL (65-110); Potassium 3.8 mmol/L (3.4-5.0); Sodium 127 mmol/L (137-145)
[2023-03-05 14:32] LABS: Iron 57 ug/dL (37-170)
[2023-03-05 14:41] LABS: Percent Iron Saturation 16 % (20-50)
[2023-03-05 15:39] LABS: Folic Acid 6.4 ng/mL (2.76->20)
[2023-03-05 16:20] LABS: Vitamin D 25 Hydroxy 34.5 ng/mL
[2023-03-09 13:56] LABS: Immunoglobulin A 159 mg/dL (70-320); TTG IGA AB <1.0 U/mL (<15.0)
== END 2023-03-05 12:47 | disposition home or self-care (01) ==
PROVIDERS: PCP Physician Assistant; Visit Provider Nurse Practitioner Family
DX: K90.0 Celiac disease (principal)
CPT/HCPCS: 36415; 80053; 82306; 82607; 82728; 82746; 82784; 83540; 83550; 85027; 86364

== ENCOUNTER → 2023-04-16 08:14 | Outpatient (CLI) | payer MEDICARE, SELFPAY ==
--- NOTE | ~2023-04-16 | MR_ITS ---
EXAMINATION: MR lumbar spine wo/w con DATE: 04/16/2023 09:19 INDICATION: Lumbar postlaminectomy syndrome. TECHNIQUE: Magnetic resonance imaging (MRI) of the lumbar spine was performed without and with 10 mL Multihance intravenous contrast. Sequences included sagittal T2-weighted FSE, sagittal T2-weighted FS FSE, and sagittal and axial T1-weighted FSE. Postcontrast sequences included axial T2-weighted FSE, sagittal T1-weighted FSE, and axial and sagittal T1-weighted FS FSE. COMPARISON: Lumbar spine MR dated 04/20/[address] abdomen and pelvis dated 02/20/2022 FINDINGS: 25 degrees lumbar measured between L2 and L3-4. 4 mm anterolisthesis L3 on L4, 6 mm anterolisthesis L 4 on L5 and 3 mm retrolisthesis L5 on S1. Chronic T11 burst fracture with 60% central vertebral body height loss, 3 mm retropulsion of the cephalad aspect of the posterior wall and central low signal in tensity consistent with prior vertebroplasty. Severe disc height loss at L5-S1 and with right-sided p redominance at L2-L3 and L3-L4. There is prominent marrow edema and enhancement at the bilateral sacr al ala surrounding partially visualized low signal intensity fracture lines and surrounding a transve rse fracture extending across the S2 segment with buckling of the anterior cortex. Otherwise normal m arrow signal. The conus medullaris terminates at L1-L2. There is normal signal in the caudal spinal c ord with no abnormally enhancing lesions. Paravertebral soft tissues are unremarkable. Marked diverti culosis of the sigmoid colon. The following disc levels are specifically discussed: T10-T11: The disc does not extend beyond the retropulsed superior endplate margin of T11. There is mo derate bilateral facet joint osteoarthritis. There is moderate right and mild to moderate left neural foraminal stenosis. There is mild central canal stenosis. T11-T12: Disc is mildly bulging. There is mild right and moderate left facet joint osteoarthritis. Th ere is mild left neural foraminal stenosis. There is minimal central canal stenosis. T12-L1: The disc does not extend beyond the endplate margin. There is mild bilateral facet joint oste oarthritis. There is no neural foraminal stenosis. There is no central canal stenosis. L1-L2: Disc is bulging. There is moderate bilateral facet joint osteoarthritis. There is moderate wendy ateral neural foraminal stenosis. There is mild central canal stenosis. L2-L3: Disc is bulging. There is mild left and severe right facet joint osteoarthritis. There is mild left and moderate right neural foraminal stenosis. There is mild central canal stenosis. L3-L4: Disc is bulging with annular fissure. There is mild left and severe right facet joint osteoart hritis. There is mild left and moderate to severe right neural foraminal stenosis. There is moderate central canal stenosis. L4-L5: Annular fissure and broad-based disc extrusion extending from foraminal zone to foraminal zone with disc material extending up to 7 mm cephalad to the level of the inferior endplate of L4. There is a left L4 hemilaminectomy. There is severe bilateral facet osteoarthritis. There is a right L4 par s intra-articular is defect. There is severe bilateral neural foraminal stenosis. There is moderate t o severe central canal stenosis. L5-S1: Disc is bulging with annular fissure. There is moderate left and mild to moderate right facet joint osteoarthritis. There is moderate right and moderate to severe left neural foraminal stenosis. There is no central canal stenosis. IMPRESSION: 1. Interval progression of 25 degree lumbar levoscoliosis with severe spondylosis. 2. L4 left hemilaminectomy and right-sided pars interarticularis defect. 3. Recent sacral insufficiency fractures at the bilateral sacral ala and extending transversely acros s S2 with associated marrow edema and enhancement. 4. 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
== END ==
PROVIDERS: PCP Anesthesiology Pain Medicine; Visit Provider Anesthesiology Pain Medicine
DX: M96.1 Postlaminectomy syndrome, not elsewhere classified (principal); M47.816 Spondylosis without myelopathy or radiculopathy, lumbar region; S22.081A Stable burst fracture of T11-T12 vertebra, initial encounter for closed fracture
CPT/HCPCS: 72158; A9577

== ENCOUNTER → 2023-04-28 13:13 | Outpatient (CLI) | payer MEDICARE, SELFPAY ==
--- NOTE | ~2023-04-28 | CT_ITS ---
EXAMINATION: CT diagnostic chest wo con DATE: 04/28/2023 13:55 INDICATION: Hyponatremia TECHNIQUE: Computed tomography (CT) of the chest was performed without intravenous contrast. The dose -length product (DLP) was 146.48 mGy-cm. Automated exposure control and iterative reconstruction tech nique were employed. COMPARISON: None FINDINGS: There is mild emphysema. There is a 7 mm nodule of the right lower lobe on image 53. No ple ural effusion or pneumothorax. There is mild dependent atelectasis. Calcified coronary artery atheros clerosis is noted. No pathologically enlarged thoracic lymph nodes are identified. The heart size is normal. Chronic pneumobilia is noted. There is a chronic burst fracture of T12 with vertebroplasty ch jyoti. There is severe mid thoracic spondylosis. IMPRESSION: 1. 7 mm nodule of the right lower lobe. Follow-up CT in 3-6 months is recommended. Reviewed, dictated and finalized at location F. T BUGGY OPERATOR IMPRESSION: 1. 7 mm nodule of the right lower lobe. Follow-up CT in 3-6 months is recommend ed.
== END ==
PROVIDERS: PCP Physician Assistant; Visit Provider Physician Assistant
DX: E87.1 Hypo-osmolality and hyponatremia (principal)
CPT/HCPCS: 71250

== ENCOUNTER → 2023-04-28 13:17 | Outpatient (CLI) | payer MEDICARE, SELFPAY ==
--- NOTE | ~2023-04-28 | CT_ITS ---
EXAMINATION: CT lumbar spine wo con DATE: 04/28/2023 14:06 INDICATION: Radiculopathy, lumbosacral region. TECHNIQUE: Computed tomography (CT) of the lumbar spine was performed without intravenous contrast. A utomated exposure control and iterative reconstruction technique were employed. The dose-length produ ct was 403.66 mGy-cm. COMPARISON: Lumbar spine MRI 04/16/2023 FINDINGS: There is calcified atherosclerosis of the aorta and many of the other arteries. There is a calcified fibroid uterus. There is diverticulosis of the colon without evidence of diverticulitis. Th ere is 20 degrees levoscoliosis of lumbar spine. There is 3 mm anterolisthesis of L3 on L4 and 5 mm a nterolisthesis of L4 on L5. There is a chronic burst fracture of T11 with 2/5 loss of height, changes of vertebroplasty, and retropulsion of bone 4 mm into central spinal canal. There are subacute fract ures of the sacral ala and S1 and S2 body segments. There is mildly decreased disc height at L1-L2, m oderately decreased disc height at L2-L3, and severely decreased disc height from L3-L4 through L5-S1 . There is a chronic left L3 pars defect. 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 The following disc levels are specifically discussed: L1-L2: The disc is bulging. There is severe right and moderate left facet joint osteoarthritis. There is mild bilateral neural foraminal stenosis. There is mild central canal stenosis. L2-L3: The disc is bulging. There is severe bilateral facet joint osteoarthritis. There is moderate r ight and mild left neural foraminal stenosis. There is mild central canal stenosis. L3-L4: The disc is bulging. There is severe right facet joint osteoarthritis. There is ankylosis of l eft facet joint with moderate hypertrophy. There is mild bilateral neural foraminal stenosis. There i s mild central canal stenosis. L4-L5: The disc is bulging. There is severe bilateral facet joint osteoarthritis. There is moderate b ilateral neural foraminal stenosis. There is mild central canal stenosis. L5-S1: The disc is bulging. There is severe bilateral facet joint osteoarthritis. There is mild right and moderate left neural foraminal stenosis. There is mild central canal stenosis. IMPRESSION: 1. Stable severe lumbar spondylosis. 2. Chronic left L3 pars defect and chronic right L4 pars defect. 3. Lumbar levoscoliosis. 4. Subacute insufficiency fractures of the sacrum again seen. Reviewed, dictated and finalized at location E. GATOR
--- NOTE | ~2023-04-28 | CT_ITS ---
EXAMINATION: CT pelvis wo con DATE: 04/28/2023 14:06 INDICATION: Radiculopathy, lumbosacral region. TECHNIQUE: Computed tomography (CT) of the pelvis was performed without intravenous contrast. Automat ed exposure control and iterative reconstruction technique were employed. The dose-length product was 240.41 mGy-cm. COMPARISON: Lumbar spine MRI 04/16/2023 FINDINGS: There is diverticulosis of the colon without evidence of diverticulitis. There is a calcifi ed fibroid in the uterus. There is a left inguinal hernia containing nonobstructed small bowel. There is lumbar levoscoliosis and severe spondylosis. There are healing fractures of the bilateral sacral ala and S1 and S2 body segments. There is a benign bone island in the sacrum. There is a fracture of right parasymphyseal pubis. There is severe right hip osteoarthritis and moderate left hip osteoarthr itis. IMPRESSION: 1. Comminuted fracture of right parasymphyseal pubis. 2. Healing subacute insufficiency fractures of the sacrum. 3. Left inguinal hernia containing nonobstructed small bowel. Reviewed, dictated and finalized at location E. ER COUNSELOR
== END ==
DX: M46.1 Sacroiliitis, not elsewhere classified (principal); K40.90 Unilateral inguinal hernia, without obstruction or gangrene, not specified as recurrent; S32.591D Other specified fracture of right pubis, subsequent encounter for fracture with routine healing; X58.XXXD Exposure to other specified factors, subsequent encounter; M47.27 Other spondylosis with radiculopathy, lumbosacral region
CPT/HCPCS: 72131; 72192

== ENCOUNTER 2023-10-22 14:33 | Outpatient (CLI) | payer MEDICARE, SELFPAY ==
--- NOTE | ~2023-10-22 | MR_ITS ---
EXAMINATION: MR lumbar spine wo con DATE: 10/22/2023 15:12 INDICATION: Lumbosacral radiculopathy. Low back pain. TECHNIQUE: Magnetic resonance imaging (MRI) of the lumbar spine was performed without intravenous con trast. Sequences included sagittal T2-weighted FSE, sagittal T2-weighted FS FSE, sagittal T1-weighted FSE, and axial T2-weighted FSE. COMPARISON: Lumbar spine MRI 04/16/2023 FINDINGS: There is 17 degrees levoscoliosis of lumbar spine. There is 3 mm anterolisthesis of L3 on L 4 and 6 mm anterolisthesis of L4 on L5. There is a chronic burst fracture of T11 with changes of vert ebroplasty. 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 There is mildly decreased disc height at L1-L2, moderately decreased disc height at L2-L3, and severely decreased disc height at L3-L4, L4-L5, and L5 -S1. There are healing insufficiency fractures of the sacrum. The following disc levels are specifica lly discussed: L1-L2: The disc is bulging. There is severe bilateral facet joint osteoarthritis. There is moderate r ight and mild left neural foraminal stenosis. There is mild central canal stenosis. L2-L3: The disc is bulging and has an annular fissure. There is severe bilateral facet joint osteoart hritis. There is moderate right and mild left neural foraminal stenosis. There is mild central canal stenosis. L3-L4: The disc is bulging and has an annular fissure. There is severe right facet joint osteoarthrit is. There is ankylosis of left facet joint with severe hypertrophy. There is moderate right and mild left neural foraminal stenosis. There is mild central canal stenosis. L4-L5: The disc is bulging and has an annular fissure. There is severe bilateral facet joint osteoart hritis. There is moderate right and severe left neural foraminal stenosis. There is mild central cherie l stenosis. L5-S1: The disc is bulging and has an annular fissure. There is moderate right and severe left facet joint osteoarthritis. There is mild right and moderate left neural foraminal stenosis. There is mild central canal stenosis. IMPRESSION: 1. Severe lumbar spondylosis, stable from 04/16/2023. 2. Right L4 pars defect again seen. 3. Healing sacral insufficiency fractures again seen. 4. Lumbar levoscoliosis. Reviewed, dictated and finalized at location E.
== END 2023-10-22 14:34 ==
DX: M43.06 Spondylolysis, lumbar region (principal); M53.86 Other specified dorsopathies, lumbar region; M41.86 Other forms of scoliosis, lumbar region; M96.1 Postlaminectomy syndrome, not elsewhere classified; M84.48XS Pathological fracture, other site, sequela
CPT/HCPCS: 72148

== ENCOUNTER 2024-02-24 10:19 | Outpatient (CLI) | payer MEDICARE, SELFPAY ==
--- NOTE | 2024-02-24 | ECHO_ITS ---
Patient Info Name: Sandra Carlos Age: 83 years : 1940 Gender: Female Ht: 58 in Wt: 108 lbs BSA: 1.42 m2 HR: 63 bpm BP: 201 / 86 mmHg Heart Rhythm: Sinus Rhythm Technical Quality: Good Exam Date: 02/24/2024 11:57 AM Exam Location: Echo Lab Patient Status: Outpatient Admit Date: 02/24/2024 Staff Ordering Physician: DonteNaida PA-C Mushroom Spawn Maker: Dunia Butcher RDCS Attending Provider: JayashreeNaida PA-C Exam Type: CA echo doppler color flow Study Info Indications R06.09 - Other forms of dyspnea Complete two-dimensional, color flow and Doppler transthoracic echocardiogram is performed. Strain analysis performed. Summary 1. Left ventricular chamber dimension is normal. 2. Left ventricular systolic function is normal, estimated at 55-60%. 3. There is mildly increased left ventricular wall thickness. 4. The left ventricular diastolic function is grade I diastolic dysfunction. 5. Right ventricular systolic function is normal. 6. Left atrial chamber dimension is severely enlarged. 7. Right atrial chamber dimension is mildly enlarged. 8. There is mild aortic valve regurgitation. 9. There is moderate mitral valve regurgitation. 10. There is mild tricuspid valve regurgitation. 11. Estimated pulmonary arterial systolic pressure is 40 mmHg. Left Ventricle Left ventricular chamber dimension is normal. Left ventricular systolic function is normal, estimated at 55-60%. There is mildly increased left ventricular wall thickness. The left ventricular diastolic function is grade I diastolic dysfunction. Right Ventricle Right ventricular chamber dimension is normal. Right ventricular systolic function is normal. Left Atria Left atrial chamber dimension is severely enlarged. Right Atria Right atrial chamber dimension is mildly enlarged. Atrial Septum Intact interatrial septum visualized by color flow imaging. Aortic Valve The aortic valve is trileaflet. There is no aortic valve stenosis. There is mild aortic valve regurgitation. There is mild aortic valve calcification. Pulmonic Valve The pulmonic valve is not well visualized. Mitral Valve There is moderate mitral valve regurgitation. The mitral valve annulus is mildly calcified. Tricuspid Valve There is mild tricuspid valve regurgitation. Estimated pulmonary arterial systolic pressure is 40 mmHg. Pericardium/Pleural There is no pericardial effusion. Inferior Vena Cava Normal inferior vena cava with >50% collapse upon inspiration consistent with normal right atrial pressure, 3 mmHg. Aorta The aortic root size at the sinus of Valsalva is normal. Left Ventricular Outflow Tract Name Value Normal LVOT 2D LVOT Diameter 1.9 cm LVOT Doppler LVOT Peak Gradient 7 mmHg LVOT Mean Gradient 3 mmHg LVOT VTI 31 cm LVOT VTI/AV VTI Ratio 0.9 LVOT Stroke Volume 85 ml LVOT CO 5.0 l/min LVOT CI 3.5 l/min/m2 Pulmonic Valve Name
== END 2024-02-24 10:20 | disposition home or self-care (01) ==
PROVIDERS: PCP Physician Assistant; Visit Provider Physician Assistant
DX: I50.30 Unspecified diastolic (congestive) heart failure (principal); I08.3 Combined rheumatic disorders of mitral, aortic and tricuspid valves
CPT/HCPCS: 93306

== ENCOUNTER 2024-03-04 10:09 | Outpatient (CLI) | payer MEDICARE, SELFPAY ==
--- NOTE | 2024-03-04 | EST_ITS ---
Patient Info Name: Sandra Carlos Age: 83 years : 1940 Gender: Female Ht: 58 in Wt: 108 lbs BSA: 1.42 m2 HR: 59 bpm BP: 180 / 76 mmHg Heart Rhythm: Sinus Rhythm Exam Date: 03/04/2024 11:09 AM Exam Location: Echo Lab Patient Status: Outpatient Admit Date: 03/04/2024 Staff Ordering Physician: DonteNaida PA-C Attending Provider: Donte, Naida BELLE Exercise Technologist: Lanie Boswell, CT Exam Type: CA stress fareed w NM Study Info Indications R07.89 - Other chest pain A regadenoson stress test was performed. Summary 1. No abnormal ST/T wave changes diagnostic of ischemia with Lexiscan. 2. Please correlate with nuclear medicine images, reported separately. 3. Stress test supervised by Adriana Cornell NP. Stress test interpreted by Megan Orellnaa MD. Protocol: Lexiscan Stress ECG Details Stage: REST Duration (min): 2 min : 7 sec HR (bpm): 59 SBP (mmHg): 190 DBP (mmHg): 81 Stage: REST Duration (min): 8 min : 41 sec HR (bpm): 59 SBP (mmHg): 180 DBP (mmHg): 68 Stage: STAGE 1 Duration (min): 1 min : 0 sec HR (bpm): 66 SBP (mmHg): 181 DBP (mmHg): 54 Stage: RECOVERY Duration (min): 1 min : 0 sec HR (bpm): 66 SBP (mmHg): 181 DBP (mmHg): 54 Stage: RECOVERY Duration (min): 2 min : 0 sec HR (bpm): 67 SBP (mmHg): 181 DBP (mmHg): 54 Stage: RECOVERY Duration (min): 3 min : 0 sec HR (bpm): 69 SBP (mmHg): 181 DBP (mmHg): 54 Stage: RECOVERY Duration (min): 4 min : 0 sec HR (bpm): 68 SBP (mmHg): 159 DBP (mmHg): 61 Stage: RECOVERY Duration (min): 5 min : 0 sec HR (bpm): 67 SBP (mmHg): 151 DBP (mmHg): 71 Stage: RECOVERY Duration (min): 5 min : 0 sec HR (bpm): 67 SBP (mmHg): 151 DBP (mmHg): 71 Rest HR: 59 bpm Peak HR: 69 bpm Rest Sys BP: 180 mmHg Peak Sys BP: 181 mmHg Max Pred HR: 139 bpm % Max Pred HR: 50 % Target HR: 118 bpm Max RPP: 12,489 bpm*mmHg Cardiac Symptoms: Shortness of breath Total Time: 1 min : 0 sec Rest Zhang BP: 68 mmHg Peak Zhang BP: 54 mmHg Total Dose: 0.4 mg Resting ECG Sinus bradycardia. Incomplete right bundle branch block. Nonspecific STTW abnormality. Stress ECG Sinus rhythm. No abnormal ST/T wave changes diagnostic of ischemia with Lexiscan. Arrhythmias None. Report Signatures
--- NOTE | ~2024-03-04 | NM_ITS ---
EXAMINATION: NM fareed stress w perfusion DATE: 03/04/2024 12:35 INDICATION: Dyspnea TECHNIQUE: Rest images were obtained following intravenous administration of 8.3 mCi Tc99m tetrofosmi n (Myoview). The patient was infused intravenously with Lexiscan (Regadenoson). Then, 27.2 mCi Tc99m tetrofosmin (Myoview) was administered intravenously, and stress images were obtained. Data was recon structed into short axis and horizontal and vertical long axis SPECT images. Gated SPECT images were also obtained. COMPARISON: None. FINDINGS: There is no definite reversible or fixed perfusion abnormality to suggest ischemia or infar ction. There is normal left ventricular chamber size, wall motion and ejection fraction. Left ventr icular ejection fraction measures 70%. IMPRESSION: 1. Normal myocardial perfusion at rest and during stress. 2. Left ventricular ejection fraction measuring 70%. Reviewed, dictated and finalized at location A.
== END 2024-03-04 10:10 | disposition home or self-care (01) ==
PROVIDERS: PCP Physician Assistant; Visit Provider Physician Assistant
DX: R06.09 Other forms of dyspnea (principal)
CPT/HCPCS: 78452; 93017; A9502; J2785

== ENCOUNTER 2024-03-13 10:08 | Outpatient (CLI) | payer MEDICARE, SELFPAY ==
--- NOTE | ~2024-03-13 | MM_ITS ---
EXAMINATION: MM screening tricia BI w rajeev HISTORY: Screening TECHNIQUE: Craniocaudal and mediolateral oblique 3-D tomosynthesis images were obtained and synthetic 2-D images were generated. CAD analysis was submitted and interpreted. COMPARISON: Comparison to multiple prior studies sequentially, with oldest reviewed study dated 08/04. BREAST PARENCHYMAL COMPOSITION: Dense: The breasts are heterogeneously dense, which may obscure small masses FINDINGS: There is no evidence of suspicious mass, calcification, or architectural distortion to sugg est malignancy in either breast. There has been no suspicious interval change. IMPRESSION: 1. No mammographic evidence of malignancy. 2. Recommend routine screening mammography in one year. BI-RADS Category 1: Negative Reviewed, dictated and finalized at location B.
== END 2024-03-13 10:09 | disposition home or self-care (01) ==
LOC: ANHIMG 10:12
PROVIDERS: PCP Physician Assistant; Visit Provider Physician Assistant
DX: Z12.31 Encounter for screening mammogram for malignant neoplasm of breast (principal)
CPT/HCPCS: 77063; 77067

== ENCOUNTER 2024-06-29 00:13 | Day surgery (SDC) | payer MEDICARE, SELFPAY ==
[2024-06-15 14:51] VITALS: BMI 22.1
--- NOTE | 2024-06-28 15:04 | P.PNAN_ITS ---
Anes - Initial Pre Proc Eval Procedure: Operation Date: 06/29/24 10:00 Proposed Procedures p Esophagogastroduodenoscopy - Barrington Last MD Date/Time: 06/28/24 15:04 Surgeon: Barrington Last MD Pre Op Diagnosis: GERD Patient Data Age: 83 Gender: F Height: 1.47 m Weight: 48 kg Allergies Allergy/AdvReac Type Severity Reaction Status Date / Time morphine Allergy Mild Nausea Verified 06/29/24 08:46 gluten Allergy Diarrhea Verified 06/29/24 08:46 Home Medications ?Medication ?Instructions ?Recorded ?Confirmed ?Type ergocalciferol (vitamin D2) 1,250 50,000 unit PO 2XW 06/03/19 06/29/24 History mcg (50,000 unit) capsule (Vitamin D2) levothyroxine 75 mcg tablet 75 mcg PO DAILY 06/03/19 06/29/24 History (Synthroid) multivit with minerals-iron 18 1 tablet PO DAILY 06/03/19 06/29/24 History mg-folic ac 400 mcg-vit K 25 mcg tablet (Adults Multivitamin) oxycodone-acetaminophen 5 mg-325 1 tablet PO Q4H PRN Pain 06/03/19 06/15/24 History mg tablet atorvastatin 20 mg tablet 20 mg PO DAILY 01/16/21 06/29/24 History omega-3 fatty acids 1,000 mg 1,000 mg PO DAILY 01/16/21 06/29/24 History capsule (Fish Oil Concentrate) hydroxychloroquine 200 mg tablet 200 mg PO BID 07/26/22 06/29/24 History zinc 50 mg tablet 50 mg PO DAILY 07/26/22 06/29/24 History alendronate 70 mg tablet (Fosamax) 70 mg PO WEEKLY 11/05/22 06/29/24 History ferrous sulfate 325 mg (65 mg 325 mg PO DAILY 11/05/22 06/29/24 History iron) tablet amlodipine 5 mg tablet 5 mg PO DAILY 1 month #30 tabs 11/09/22 03/25/23 Rx lisinopril 20 mg tablet 20 mg PO QAM 1 month #30 tabs 11/09/22 06/29/24 Rx carvedilol 12.5 mg tablet 12.5 mg PO BID 06/15/24 06/29/24 History Patient hx anesthesia problems: none Family hx anesthesia problems: none Results Review: All pre-operative results and documents have been reviewed as part of the pre- operative evaluation. [facility] Past Medical History Medical History (Updated 06/28/24 @ 15:04 by Barry Hartman, ) Chronic, continuous use of opioids Hypothyroidism Chronic low back pain Chronic pain syndrome Anemia Right rotator cuff tear arthropathy Right rotator cuff tear Arthritis GERD (gastroesophageal reflux disease) Pancreatitis Gastric ulcer Diverticulitis Colitis Pneumonia HTN (hypertension) HLD (hyperlipidemia) Seasonal allergies Glaucoma Surgical History Surgical History H/O inguinal hernia repair 08/02/22 Robotic laparoscopic right inguinal hernia repair with mesh Status post total knee replacement, left History of total left hip arthroplasty H/O removal of cyst H/O lumbar discectomy Hx of cholecystectomy Hx of appendectomy History of cardiac catheterization Hx of tonsillectomy H/O bilateral cataract extraction Family History Family History Sibling Family history of congenital heart disease Family history of arthritis Father Family history of arthritis Mother Family history of malignant neoplasm Other Diabetes mellitus Family history of cardiovascular disease Family history of kidney disease Hypertension Social History Social History Social History: Lives at home with her . She is a full code. She nominates her daughter to be the individual making medical decisions for her if she is unable. She rarely drinks alcohol. Lifelong nonsmoker. No drug use. Smoking status: Never smoker Alcohol intake: former Alcohol use details: Was socially Substance use: never Substance use type: does not use Lack of Transportation: No Lack of Food: Never True Current Housing: I Have Housing Concerned About Future Housing: No Difficulty Paying Gas/Electric Bills: No Difficulty Paying for Meds: No Currently Unemployed: No Education: High School Diploma/GED Difficulty w/ Childcare or Family Care: No Living arrangements: alone Gender identity (if verbalized by the patient): Female Spiritual care concerns: No Agree to blood products: Yes Anes - Eval Final PreProcedure Day of Procedure 06/28/24 15:04 Patient weight: normal Heart: regular rate and rhythm Lungs: clear to auscultation and normal air movement Airway: Mallampati scale class II Neurological: alert and oriented Last oral intake: >/= 8 hours ASA classification: III Emergent: no Anesthetic plan: proceed Anesthesia type and monitoring: general GIVS and standard monitoring Results Review: All pre-operative results and documents have been reviewed as part of the pre- operative evaluation. Informed Consent: The patient's anesthetic plan and its attendant risks and benefits were discussed with the patient/family/POA. Questions were solicited and answers prov ided to the satisfaction of the patient/family/POA.
[2024-06-29 08:48] VITALS: BP 167/69; PULSE 71; RESP 18; TEMP 37; O2SAT 100
[2024-06-29] MEDS: LACTATED RINGERS 1,000 ML 150 ML IV CONT (09:05)
--- NOTE | 2024-06-29 09:41 | P.HP_ITS ---
History of Present Illness History of Present Illness Consent: Risks, benefits, and alternatives have been discussed and questions answered. Patient agrees to proceed with procedure. Chief complaint: GERD Narrative: Sandra Carlos is a 83 year old female with epigastric pain Review of Systems Review of Systems: All systems reviewed & are unremarkable except as noted in HPI and below PMFSH Past Medical History Medical History (Updated 06/28/24 @ 15:04 by Barry Hartman, DO) Chronic, continuous use of opioids Hypothyroidism Chronic low back pain Chronic pain syndrome Anemia Right rotator cuff tear arthropathy Right rotator cuff tear Arthritis GERD (gastroesophageal reflux disease) Pancreatitis Gastric ulcer Diverticulitis Colitis Pneumonia HTN (hypertension) HLD (hyperlipidemia) Seasonal allergies Glaucoma Surgical History Surgical History H/O inguinal hernia repair 08/02/22 Robotic laparoscopic right inguinal hernia repair with mesh Status post total knee replacement, left History of total left hip arthroplasty H/O removal of cyst H/O lumbar discectomy Hx of cholecystectomy Hx of appendectomy History of cardiac catheterization Hx of tonsillectomy H/O bilateral cataract extraction Family History Family History Sibling Family history of congenital heart disease Family history of arthritis Father Family history of arthritis Mother Family history of malignant neoplasm Other Diabetes mellitus Family history of cardiovascular disease Family history of kidney disease Hypertension Social History Social History Social History: Lives at home with her . She is a full code. She no minates her daughter to be the individual making medical decisions for her if she is unable. She rarely drinks alcohol. Lifelong nonsmoker. No drug use. Smoking status: Never smoker Alcohol intake: former Alcohol use details: Was socially Substance use: never Substance use type: does not use Lack of Transportation: No Lack of Food: Never True Current Housing: I Have Housing Concerned About Future Housing: No Difficulty Paying Gas/Electric Bills: No Difficulty Paying for Meds: No Currently Unemployed: No Education: High School Diploma/GED Difficulty w/ Childcare or Family Care: No Living arrangements: alone Gender identity (if verbalized by the patient): Female Spiritual care concerns: No Agree to blood products: Yes Meds Home Medications and Allergies Home Medications ?Medication ?Instructions ?Recorded ?Confirmed ?Type ergocalciferol (vitamin D2) 1,250 50,000 unit PO 2XW 06/03/19 06/29/24 History mcg (50,000 unit) capsule (Vitamin D2) levothyroxine 75 mcg tablet 75 mcg PO DAILY 06/03/19 06/29/24 History (Synthroid) multivit with minerals-iron 18 1 tablet PO DAILY 06/03/19 06/29/24 History mg-folic ac 400 mcg-vit K 25 mcg tablet (Adults Multivitamin) oxycodone-acetaminophen 5 mg-325 1 tablet PO Q4H PRN Pain 06/03/19 06/15/24 History mg tablet atorvastatin 20 mg tablet 20 mg PO DAILY 01/16/21 06/29/24 History omega-3 fatty acids 1,000 mg 1,000 mg PO DAILY 01/16/21 06/29/24 History capsule (Fish Oil Concentrate) hydroxychloroquine 200 mg tablet 200 mg PO BID 07/26/22 06/29/24 History zinc 50 mg tablet 50 mg PO DAILY 07/26/22 06/29/24 History alendronate 70 mg tablet (Fosamax) 70 mg PO WEEKLY 11/05/22 06/29/24 History ferrous sulfate 325 mg (65 mg 325 mg PO DAILY 11/05/22 06/29/24 History iron) tablet amlodipine 5 mg tablet 5 mg PO DAILY 1 month #30 tabs 11/09/22 03/25/23 Rx lisinopril 20 mg tablet 20 mg PO QAM 1 month #30 tabs 11/09/22 06/29/24 Rx carvedilol 12.5 mg tablet 12.5 mg PO BID 06/15/24 06/29/24 History Allergies Allergy/AdvReac Type Severity Reaction Status Date / Time morphine Allergy Mild Nausea Verified 06/29/24 08:46 gluten Allergy Diarrhea Verified 06/29/24 08:46 Vital Signs Vital Signs - 24 hr 06/29/24 08:48 Temperature 98.6 F Pulse Rate 71 Respiratory Rate 18 Blood Pressure 167/69 H Pulse Oximetry 100 Oxygen Delivery Room Air Exam Const: General: comfortable and no acute distress HENMT: Face/Nose/Sinus: Normal nares present Eyes: General: appearance normal, both eyes and all related structures Neck: Neck: no JVD Resp: Auscultation: clear to auscultation bilaterally Cardio: Rate: regular rate Rhythm: regular rhythm GI: Inspection: non-distended GI Palp: Yes Soft to palpation Skin: General skin exam: normal color Neuro: Speech: normal speech Extrem: General: normal to inspection Psych: Mental Status: mental status grossly normal Assessment and Plan Assessment and plan (1) GERD (gastroesophageal reflux disease): Code(s): K21.9 - Gastro-esophageal reflux disease without esophagitis Status: Acute Assessment and Plan: egd with bx
[2024-06-29 09:51] VITALS: BP 169/73; PULSE 65; RESP 16; O2SAT 98
[2024-06-29 10:01] VITALS: BP 182/72; PULSE 63; RESP 15; O2SAT 100
[2024-06-29 10:11] VITALS: BP 187/70; PULSE 65; RESP 15; O2SAT 100
--- OUTSIDE RECORDS SUMMARY | 2024-07-01 15:09 | XMS_ITS | Data Portability ---
Author Organization [facility] Address [address] [place] [address] Care Team Providers Care Armored Car Messenger Name Role Phone EVAN MINAYA Primary Care Provider Unavailab le Assessment No assessment recorded. Plan of Treatment Reminders Order Date Submit Date Provider Last Modified By Organization Details Last Modified Time Details Appointments ANY 15 2024 01:30P M NATACHA Kwong Not available Not available Not available Lab lipid panel, serum 2023 024 [place] [facility], [address], [place], [address], 09/24/2023 11:24:50 vitamin D, 25-hydrox y, total, serum 2023 024 [email or web address], [address], [place], [address], 10/09/2023 08:11:57 BMP, serum or plasma 2023 024 [email or web address] [facility], [address], [place], [address], 10/09/2023 08:11:57 CBC w/ auto diff 2023 024 [email or web address] [facility], [address], [place], [address], 10/09/2023 08:11:57 hepatic function panel, serum 2023 024 [email or web address] [facility], [address], [place], [address], 10/09/2023 08:11:57 TSH + free T4, serum 2023 024 [facility], [address], [address], [place], [address], 09/24/2023 11:24:50 T3, free, serum or plasma 2023 024 [place] [facility], [address], [address], [place], [address], 09/24/2023 11:24:51 vitamin D, 25-hydrox y, total, serum 2023 024 [facility], [address], [address] [place], [place], [address], 04/19/2024 16:34:43 lipid panel, serum 2023 024 [facility], [address], [address] [place], [place], [address], 04/19/2024 16:33:27 BMP, serum or plasma 2023 024 [facility], [address], [address] [place], [place], [address], 04/19/2024 16:33:42 CBC w/ auto diff 2023 024 [employer] [facility], [address], [address] [place], [place], [address], 04/19/2024 16:34:06 hepatic function panel, serum 2023 024 [facility], [address], [address] [place], [place], [address], 04/19/2024 16:35:04 vitamin B12 + folate, serum or blood 2023 024 [employer] [facility], [address], [place], [place], [address], 04/19/2024 16:34:33 HbA1c (hemoglob in A1c), blood 2023 [facility], [address], [place], [place], [address], 04/19/2024 16:33:56 TSH + free T4, serum [address] [facility], [address], [place], [place], [address], 04/19/2024 16:35:15 T3, free, serum or plasma 2023 024 [facility], [address], [place], [place], [address], 04/19/2024 16:34:11 vitamin D, 25-hydrox y, total, serum 2023 025 [email or web address] [facility], [facility] [address], [address], [place], [address], 04/27/2024 15:28:11 lipid panel, serum 2023 025 [email or web address] [facility], [facility] [address], [address] [place], [place], [address], 04/27/2024 15:28:11 BMP, serum or plasma 2023 025 [email or web address] [facility], [address], [place], [place], [address], 04/27/2024 15:28:11 CBC w/ auto diff 2023 025 [email or web address] [facility], [address], [place], [place], [address], 04/27/2024 15:28:11 hepatic function panel, serum 2023 025 [email or web address] [facility], [address], [place], [place], [address], 04/27/2024 15:28:11 HbA1c (hemoglob in A1c), blood 2023 025 [email or web address] [facility], [address], [address], [place], [address], 04/27/2024 15:28:11 HbA1c (hemoglob in A1c), blood 2023 025 [email or web address] [facility], [address], [place], [place], [address], 04/27/2024 15:36:03 BMP, serum or plasma 2023 025 [email or web address] [facility], [address], [place], [address], 04/27/2024 15:36:03 TSH + free T4, serum 2023 025 [email or web address] [facility], [address], [address], [place], [address], 04/27/2024 15:28:11 TSH + free T4, serum 2023 025 [email or web address] [facility], [address], [place], [address], 04/27/2024 15:36:03 Referral None recorded. Procedures lexiscan cardiolit e stress test (PROC) [address] [facility] (Cardiology [facility] Emg), [address], [place], [address], 03/05/2024 11:32:47 Surgeries None recorded. Imaging US, echocardi ogram, transthor acic, complete, w/ color flow [address] [facility] ([facility]iology [facility]), [address], [place], [address], 03/04/2024 15:50:56 Medication Orders atorvasta tin 20 mg tablet 2023 024 [facility], [address] [place], [address], 08/28/2023 15:46:31 carvedilo l 6.25 mg tablet 2023 024 [facility], [address] [place] [address], [id number], 02/26/2024 12:22:29 lisinopri l 20 mg tablet 2023 024 [facility], [address] [place] [address], [address], 08/28/2023 15:46:00 famotidin e 40 mg tablet 2023 024 [email or web address], [address] [place] [address], [address], 04/27/2024 14:54:33 famotidin e 40 mg tablet 2023 024 [facility], [address] [place] [address], [address], 04/27/2024 15:28:22 duloxetin e 30 mg capsule,d elayed release 2023 024 [facility], [address] [place] [address], [address], 04/27/2024 15:28:22 Patient TargetsNo targets recorded. Patient InstructionsNo instructions recorded. Reason for Referral None Reported. Results Created Date Observation Date Name Description Value Unit Range Abnormal Flag Note LastModifiedBy Organization Detail LastModifiedTime 03/04/2002/24/2024 US, echoc ardio gram, trans thora cic, compl ete, w/ color flow No observ ation record ed. [address] (Cardiology & Emg) [address] [facility] [address] [facility], [place], [address], 03/15/2024 14:17:01 03/04/20 24 03/04/2024 khris can cardi olite stres s test (PROC ) No observ ation record ed. [address] (Cardiology & Emg) [address] [facility] [address], [place], [address], 03/15/2024 14:16:45 03/15/2003/13/2024 MAMMO , scree benjamín, digit al, bilat eral No observ ation record ed. [place] [id number] [facility] [address] [facility], [place], [address], 03/15/2024 14:16:46 Result Notes None recorded. Problems Name Problem SNOMED Code Status Onset Date Resolution Date Notes Provider Name and Address Organization Details Recorded Time Long-term drug therapy Active 2023 NATACHA Kwong Attn: Westley alves,[address] [place], [address], [facility] 4 22:21:22 Osteoporosis 57399119 Active 2023 NATACHA Kwong Attn: Westley alves,[address] [place], [address], [facility] 4 22:21:33 Blood glucose outside reference range 628623997 Active 2023 NATACHA Kwong Attn: Westley alves,[address] [facility], [place], [address], [facility] 4 22:21:34 Nausea 305614707 Active 2023 NATACHA Kwong Attn: Westley alves,[address] [place], [address], [place] [facility] 4 22:21:43 Hypothyroidism 15514869 Active 2023 NATACHA Kwong Attn: Westley alves,[address] [facility], [place], [address], [place] [facility] 4 22:22:00 Mixed hyperlipidemia 536375383 Active 2023 NATACHA Kwong Attn: Westley alves,[address] [facility], [place], [address], [place] [facility] 4 22:22:33 Dyspnea on exertion 26638829 Active 2023 NATACHA Kwong Attn: Westley alves,[address] [facility], [place], [address], [place] [facility] 4 22:22:35 Rheumatoid arthritis 86328218 Active 2023 NATACHA Kwong Attn: Westley alves,[address] [facility], [place], [address], [place] [facility] 4 22:22:36 Benign essential hypertension 6646392 Active 2023 NATACHA Kwong Attn: Westley alves,[address] [facility], [place], [address], [place] [facility] 4 22:22:37 Echocardiogram abnormal 392550320 Active 2023 NATACHA Kwong Attn: Westley alves,[address] [facility], [place], [address], [place] [facility] 4 14:36:37 Depressive disorder 67839111 Active 2023 NATACHA Kwong Attn: Westley alves,[address] [facility], [place], [address], [place] [facility] 4 15:27:46 Gastroesophage al reflux disease 146409459 Active 2023 NATACHA Kwong Attn: Westley alves,[address] [facility] [address], [place], [address], [facility] 15:27:55 Hyponatremia 59147442 Active 2023 NATACHA Kwong Attn: Westley alves,[address], [place], [address], [facility] 15:27:57 Problem Notes None recorded. Procedures Surgical History Date Name Laterality Status Provider Name and Address Organization Details Recorded Time Appendectomy completed Dequan Whitley MA [facility] 02/03/2024 14:41:06 Arthroscopic Surgery completed Dequan Whitley MA [facility] 02/03/2024 14:41:11 Back Surgery completed Dequan Whitley MA [facility] 02/03/2024 14:41:17 Eye Surgery completed Dequan Whitley MA [facility] 02/03/2024 14:41:24 Hernia Repair completed Dequan Whitley MA [facility] 02/03/2024 14:42:05 Joint Replacement completed Dequan Whitley [facility] 02/03/2024 14:42:12 Knee Surgery completed Dequan Whitley MA [facility] 02/03/2024 14:42:17 Tonsillectomy completed Dequan Whitley MA [facility] 02/03/2024 14:42:23 Imaging Results Imaging Date Name Status LastModified by Organiz ation Details LastModified Time 02/24/2024 US, echocardiogram, transthoracic, complete, w/ color flow completed [address] (Cardiology [facility] Emg) [address] [facility] [address], [place], [address], 03/15/2024 14:17:01 03/04/2024 lexiscan cardiolite stress test (PROC) completed [address] (Cardiology & Emg) [address] [facility] [address], [place], [address], 03/15/2024 14:16:45 03/13/2024 MAMMO, screening, digital, bilateral completed [facility] [address], [place], [address], 03/15/2024 14:16:46 Procedure Notes None recorded. Medical Equipment None Reported. Allergies No known drug allergies Medications Name Sig Start Date Stop Date Status Note LastModified by Organization Details LastModified Time carvedilo l 6.25 mg tablet Take 1 tablet twice a day by oral route. 02/25 completed Not Available Not Available Not Available atorvasta tin 20 mg tablet TAKE 1 TABLET BY MOUTH ONCE DAILY active Not Available Not Available No t Available carvedilo l 12.5 mg tablet Take 1 mg twice a day by oral route in the morning for 90 days. active 1 in the AM, One in the evening Not Available Not Available Not Available tizanidin e 2 mg tablet TAKE 1 TABLET BY MOUTH TWICE DAILY NEEDED FOR SPASMS 08/27 completed Not Available Not Available Not Available lisinopri l 20 mg tablet TAKE 1 TABLET BY MOUTH ONCE DAILY active Not Available Not Available No t Available famotidin e 40 mg tablet Take 1 tablet every day by oral route at dinner. 2023 active Not Available Not Available Not Avai lable alendrona te 70 mg tablet TAKE ONE TABLET BY MOUTH ONCE A WEEK ON SUNDAYS active Not Available Not Available No t Available amlodipin e 2.5 mg tablet TAKE 1 TABLET BY MOUTH ONCE DAILY 08/27 completed Not Available Not Available Not Available amlodipin e 5 mg tablet TAKE 1 TABLET BY MOUTH ONCE DAILY 08/27 completed Not Available Not Available Not Available omeprazol e 40 mg capsule,d elayed release TAKE 1 CAPSULE BY MOUTH ONCE DAILY 02/02 completed Not Available Not Available Not Available oxycodone -acetamin ophen 5 mg-325 mg tablet TAKE 1 TABLET BY MOUTH EVERY 6 HOURS NEEDED FOR 7 DAYS 08/27 completed Not Available Not Available Not Available amoxicill in 875 mg tablet TAKE 1 TABLET BY MOUTH EVERY 12 HOURS FOR 10 DAYS 08/27 completed Not Available Not Available Not Available ferrous sulfate 325 mg (65 mg iron) tablet TAKE 1 TABLET BY MOUTH ONCE DAILY 02/02 completed Not Available Not Available Not Available Synthroid 75 mcg tablet Take 1 tablet every day by oral route. 2023 active Not Available Not Available Not Avai lable lisinopri l 20 mg-hydroc hlorothia zide 25 mg tablet TAKE 1 TABLET BY MOUTH ONCE DAILY 08/27 completed Not Available Not Available Not Available ergocalci ferol (vitamin D2) 1,250 mcg (50,000 unit) capsule TAKE 1 CAPSULE BY MOUTH ONCE A WEEK active Not Available Not Available No t Available hydroxych loroquine 200 mg tablet Take 1 tablet every day by oral route for 90 days. active Not Available Not Available No t Available oxycodone -acetamin ophen 7.5 mg-325 mg tablet Take 1 tablet every day by oral route for 30 days. active Not Available Not Available No t Available duloxetin e 30 mg capsule,d elayed release TAKE 1 CAPSULE BY MOUTH ONCE DAILY active Not Available Not Available No t Available sodium chloride 1,000 mg soluble tablet TAKE 1 & 1/2 (ONE & ONE-HALF ) TABLETS BY MOUTH TWICE DAILY FOR 1 MONTH 08/27 completed Not Available Not Available Not Available Vitals Date Recorded Body weight Provider Name an d Address Organization Details Last Updated DateTime 08/28/2023 25229.71 g Dequan Whitley MA [facility] 2023 15:22:49 Date Recorded Respiratory rate Provider Name a nd Address Organization Details Last Updated DateTime 08/28/2023 18 /min Dequan Whitley MA [facility] 08/28/2023 15:27:02 Date Recorded Body mass index (BMI) Body height Provider Name and Address Organization Details Last Updated DateTime 08/28/2023 23.2 kg/m2 150.5 cm Dequan Whitley MA [facility] 08/28/2023 15:27:17 Date Recorded Oxygen saturation Oxygen saturation in Arterial blood by Pulse oximetry Provider Name and Address Organization Details Last Updated DateTime 08/28/2023 97 % 97 % Dequan Whitley MA [facility] 08/28/2023 15:30:03 Date Recorded Heart rate Provider Name an carla Address Organization Details Last Updated DateTime 08/28/2023 78 /min Dequan Whitley MA [facility] 2023 15:30:05 Date Recorded Body height Provider Name an d Address Organization Details Last Updated DateTime 02/03/2024 150.5 cm Dequan GutierrezNUNU roy [facility] 2023 14:20:01 Date Recorded Body mass index (BMI) Body weight Provider Name and Address Organization Details Last Updated DateTime 02/03/2024 21.4 kg/m2 60726.67 g NUNU Moore [facility] 02/03/2024 14:28:03 Date Recorded Respiratory rate Provider Name a nd Address Organization Details Last Updated DateTime 02/03/2024 18 /min Dequan Navarroer NUNU Marvin [facility] 02/03/2024 14:28:09 Date Recorded Oxygen saturation Oxygen saturation in Arterial blood by Pulse oximetry Provider Name and Address Organization Details Last Updated DateTime 02/03/2024 97 % 97 % Dequan Whitley [place] [facility] 02/03/2024 14:34:58 Date Recorded Heart rate Provider Name an d Address Organization Details Last Updated DateTime 02/03/2024 66 /min Dequan Whitley N[facility] 2023 14:34:59 Date Recorded Body height Provider Name an d Address Organization Details Last Updated DateTime 03/15/2024 150.5 cm Dequan Whitley [place] [facility] 2023 14:06:35 Date Recorded Body mass index (BMI) Body weight Provider Name and Address Organization Details Last Updated DateTime 03/15/2024 21.2 kg/m2 88020.79 g Dequan NUNU Whitley [facility] 03/15/2024 14:09:12 Date Recorded Respiratory rate Provider Name a nd Address Organization Details Last Updated DateTime 03/15/2024 20 /min Dequan Whitley [facility] 03/15/2024 14:09:14 Date Recorded Oxygen saturation Oxygen saturation in Arterial blood by Pulse oximetry Provider Name and Address Organization Details Last Updated DateTime 03/15/2024 98 % 98 % Dequan Whitley [place] [facility] 03/15/2024 14:11:35 Date Recorded Heart rate Provider Name an d Address Organization Details Last Updated DateTime 03/15/2024 60 /min Dequan Whitley [place] [facility] 2023 14:11:37 Date Recorded Body height Provider Name an d Address Organization Details Last Updated DateTime 04/27/2024 150.5 cm Dequan Whitley MA [facility] 2023 14:48:33 Date Recorded Body mass index (BMI) Body weight Provider Name and Address Organization Details Last Updated DateTime 04/27/2024 20.8 kg/m2 71026.61 g Dequan Whitley MA [facility] 04/27/2024 14:50:44 Date Recorded Respiratory rate Provider Name a nd Address Organization Details Last Updated DateTime 04/27/2024 20 /min Dequan Whitley MA [facility] 04/27/2024 14:53:12 Date Recorded Oxygen saturation Oxygen saturation in Arterial blood by Pulse oximetry Provider Name and Address Organization Details Last Updated DateTime 04/27/2024 96 % 96 % Dequan Whitley MA [facility] 04/27/2024 14:55:30 Date Recorded Heart rate Provider Name an d Address Organization Details Last Updated DateTime 04/27/2024 55 /min Dequan Whitley MA [facility] 2023 14:55:46 Date Recorded Systolic blood pressure Diastolic blood pressure Provider Name and Address Organization Details Last Updated DateTime 08/28/2023 160 mm[Hg] 82 mm[Hg] Dequan Whitley MA [facility] 08/28/2023 15:29:54 Date Recorded Systolic blood pressure Diastolic blood pressure Provider Name and Address Organization Details Last Updated DateTime 08/28/2023 178 mm[Hg] 80 mm[Hg] NATACHA Kwong Attn: Accounting[address] [place], [address], [facility] 08/28/2023 15:44:51 Date Recorded Systolic blood pressure Diastolic blood pressure Provider Name and Address Organization Details Last Updated DateTime 08/28/2023 180 mm[Hg] 80 mm[Hg] NATACHA Kwong Attn: [address]ing[address] [place], [address], [facility] 08/28/2023 15:44:59 Date Recorded Systolic blood pressure Diastolic blood pressure Provider Name and Address Organization Details Last Updated DateTime 02/03/2024 148 mm[Hg] 68 mm[Hg] Dequan Whitley [place] [facility] 02/03/2024 14:42:47 Date Recorded Systolic blood pressure Diastolic blood pressure Provider Name and Address Organization Details Last Updated DateTime 02/03/2024 160 mm[Hg] 80 mm[Hg] NATACHA Kwong Attn: Accounting[address] [place], [address], [place] [facility] 02/03/2024 15:10:35 Date Recorded Systolic blood pressure Diastolic blood pressure Provider Name and Address Organization Details Last Updated DateTime 03/15/2024 150 mm[Hg] 82 mm[Hg] Dequan Whitley [place] [facility] 03/15/2024 14:12:50 Date Recorded Systolic blood pressure Diastolic blood pressure Provider Name and Address Organization Details Last Updated DateTime 03/15/2024 130 mm[Hg] 62 mm[Hg] NATACHA Kwong Attn: Accounting[address] [place], [place], [address] [place] [address], [place] [facility] 03/15/2024 14:34:53 Date Recorded Systolic blood pressure Diastolic blood pressure Provider Name and Address Organization Details Last Updated DateTime 03/15/2024 130 mm[Hg] 64 mm[Hg] NATACHA Kwogn Attn: Accounting[address] [place], [place], [address] [place] [address], [place] [facility] 03/15/2024 14:35:11 Date Recorded Systolic blood pressure Diastolic blood pressure Provider Name and Address Organization Details Last Updated DateTime 04/27/2024 132 mm[Hg] 82 mm[Hg] Dequan Whitley [place] [facility] 04/27/2024 14:58:04 Date Recorded Systolic blood pressure Diastolic blood pressure Provider Name and Address Organization Details Last Updated DateTime 04/27/2024 130 mm[Hg] 74 mm[Hg] NATACHA Kwong Attn: Accounting[address] [place], [address], [place] [facility] 04/27/2024 15:25:01 Social History Question Answer Notes LastModified by Organizat ion Details LastModified Time Tobacco Smoking Status Never Smoker Dequan Whitley [place] null, [place] [facility] 08/28/2023 15:22:43 Do You Have An Advance Directive? Yes Information not available 08/28/2023 What Is Your Level Of Alcohol Consumption? Occasional Only [place] Time Information not available 08/28/2023 Are You Blind Or Do You Have Difficulty Seeing? No Glasses Information not available 08/28/2023 What Is Your Level Of Caffeine Consumption? Moderate Coffee Information not available 08/28/2023 In The 14 Days Before Symptom Onset, Have You Had Close Contact With A Laboratory-confi rmed COVID-19 While That Case Was Ill? No Information not available 08/28/2023 In The 14 Days Before Symptom Onset, Have You Had Close Contact With A Person Who Is Under Investigation For COVID-19 While That Person Was Ill? No Information not available 08/28/2023 Have You Been To An Area Known To Be High Risk For COVID-19? No Information not available 08/28/2023 Are You Deaf Or Do You Have Serious Difficulty Hearing? No Pt. States That She Is Having Problems Hearing. Information not available 08/28/2023 What Type Of Diet Are You Following? GLUTENFREE Information not available 08/28/2023 Are There Any Guns Present In Your Home? No Information not available 08/28/2023 What Was The Date Of Your Most Recent Tobacco Screening? 04/27/2024 Information not available 04/27/2024 What Is Your Relationship Status? Information not available 02/03/2024 Do You Use Your Seat Belt Or Car Seat Routinely? Yes Information not available 08/28/2023 Do You Have Smoke And Carbon Monoxide Detectors In Your Home? Yes Information not available 08/28/2023 Do You Feel Stressed (tense, Restless, Nervous, Or Anxious, Or Unable To Sleep At Night)? [id number] Information not available 02/03/2024 Do You Use Any Illicit Or Recreational Drugs? No Information not available 02/03/2024 Do You Use Sunscreen Routinely? No Information not available 08/28/2023 Has Tobacco Cessation Counseling Been Provided? No Information not available 08/28/2023 Do You Or Have You Ever Used Any Other Forms Of Tobacco Or Nicotine? No Information not available 08/28/2023 Sex: Female Functional Status Question Answer Note LastModified by Organization D etails LastModified Time Are you able to care for yourself? Yes Information n ot available 08/28/2023 What is your exercise level? None Information not available 02/03/2024 Mental Status None recorded. Family History Nothing Reported. Medical History Condition Response Muscle, Joint, or Bone Problems Y Acid Reflux (GERD) Y High Blood Pressure Y Thyroid Problems Y Osteoporosis Y High Cholesterol Y Gynecological History Statement/Question Response Menses Monthly N Obstetrics History GPAL:G 2 P 2 0 0 0 Type Value Full Term 2 Total 2 Immunizations Vaccine Type Date Status Note Provider Nam e and Address Organization Details Recorded Time zoster recombinant 4 completed N[place]U [place], [place] [facility] 03/16/2024 16:58:09 zoster recombinant 3 completed Dequ[place] [facility] 03/16/2024 16:58:09 Influenza, high-dose, quadrivalent, PF 0 completed Dequ[place] [facility] 03/16/2024 16:58:09 Influenza, high-dose, quadrivalent, PF 2 completed Dequ[place] [facility] 03/16/2024 16:58:09 Influenza, high-dose, quadrivalent, PF 3 completed Dequ[place] [facility] 03/16/2024 16:58:09 Influenza, high-dose, quadrivalent, PF 1 [place]U [place] [facility] 03/16/2024 16:58:09 COVID-19, mRNA, LNP-S, PF, 30 mcg/0.3 mL dose 2 completed NUNU [place] [facility] 03/16/2024 16:58:09 COVID-19, mRNA, LNP-S, PF, 30 mcg/0.3 mL dose 1 completed Dequan Whit[place] null, [place] [facility] 03/16/2024 16:58:09 COVID-19, mRNA, LNP-S, PF, 30 mcg/0.3 mL dose 1 completed Dequan [place] [facility] 03/16/2024 16:58:09 pneumococcal polysaccharide PPV23 9 completed Dequan [place] [facility] 03/16/2024 16:58:09 influenza, unspecified formulation 9 completed Dequan [place] [facility] 03/16/2024 16:58:09 influenza, unspecified formulation 6 completed Dequan [place] [facility] 03/16/2024 16:58:09 influenza, unspecified formulation 8 completed Dequan [place] [facility] 03/16/2024 16:58:09 Tdap 5 completed Dequan [place] [facility] 03/16/2024 16:58:09 Pneumococcal conjugate PCV 13 6 completed Dequan [place] [facility] 03/16/2024 16:58:09 zoster live 3 completed NUNU [place], [place] [facility] 03/16/2024 16:58:09 Influenza, high-dose, trivalent, PF 7 completed Dequan [place] [facility] 03/16/2024 16:58:09 Influenza, split virus, trivalent, preservative 3 completed Dequan [place] [facility] 03/16/2024 16:58:09 Influenza, split virus, trivalent, preservative 2 completed Dequan [place] [facility] 03/16/2024 16:58:09 Influenza, split virus, quadrivalent, PF 5 completed Dequan Whitley MA null, [place] - [facility] 03/16/2024 16:58:09 Influenza, high-dose, trivalent, PF 4 completed NATACHA Kwong Attn: Accounting,[address] [facility], [place], [address], [facility] 04/04/2024 23:32:16 Past Encounters Encounter ID Performer Location Encounter Start Date Encounter Closed Date Diagnosis/Indication Diagnosis SNOMED-CT Code Diagnosis ICD10 Code Diagnosis Note [id number] NATACHA Kwong [facility] [address] [place] [address] 08/28/2023 14:45:33 09/06/2023 07:14:54 Benign essential hypertension 3498091 I10 discontinu e amlodipine script, and start coreg 6.25mg bid and lisinopril 20mg daily. Mixed hyperlipidemia 267 023892 E78.2 Refill on atorvastat in 20mg daily and due for fasting lipid panel Hypothyroidism 43060189 E03.9 due for thyroid lab panel. on synthroid 75mcg daily from [facility] Rheumatoid arthritis 698 32450 M06.9 follows with Rheumatolo gy; pt taking hydroxychl oroquine 200mg bid Osteoporosis 61945169 M8 1.0 due for vit d lab. Pt is taking fosamax 70mg weekly script Long-term drug therapy 400704071 Z79.899 routine bmp and cbc and LFT due. [id number] NATACHA Kwong [facility] [address] [place] [address] 02/03/2024 14:02:13 02/03/2024 15:23:45 Benign essential hypertension 5874469 I10 Patient does have elevation today coreg 6.25mg bid and lisinopril 20mg daily. She is a little bit flustered and still grieving with the loss of her . We will have her son who is a nurse practition er check her blood pressure see what her home readings are at. We have room to increase Coreg or lisinopril as needed. Mixed hyperlipidemia 267 984993 E78.2 Refill on atorvastat in 20mg daily and due for fasting lipid panel in March Hypothyroidism 98438169 E03.9 Patient is stable on labs in the spring. Due again for thyroid function panel in March. She is on synthroid 75mcg daily from [facility] Rheumatoid arthritis 698 50306 M06.9 follows with Rheumatolo gy; pt taking hydroxychl oroquine 200mg bid Osteoporosis 52902141 M8 1.0 due for vit d lab. Pt is taking fosamax 70mg weekly script Long-term drug therapy 097751835 Z79.899 routine bmp and cbc and LFT and vitamin B12/folate due in March, follow-up planned in April in the office Blood gluc ose outside reference range 922585000 R73.09 Slight increased risk for developing diabetes. Following A1c which is due again in March Nausea 426976096 R11.0 Continue omeprazole in the morning dosing and add famotidine 40 mg with dinner. Dyspnea on exertion 6084 5006 R06.09 Patient reports some dyspnea on exertion noted in the last couple of months. This is abnormal for her. We will refer for Lexiscan stress testing and complete echo with Doppler color flow [id number] NATACHA Kwong [facility] [address] [place] [address] 03/15/2024 14:00:17 03/15/2024 15:19:23 Benign essential hypertension 1725176 I10 continue coreg 12.5mg bid. Lisinopril 20mg daily, blood pressure is well-contr olled at 130/64 today on exam. Echocardio gram abnormal 545596701 R93.1 atrial enlargemen t bilaterall y, EF stable at 50-55%. regurgitat ion in valves noted. Left ventricula r thickness is mild and diastolic grade 1 dysfunctio n noted. Patient has already been referred to Cardiology after results came in to the office. Lexiscan myocardial perfusion testing was normal with an ejection fraction of 70% estimated on that testing. Long-term drug therapy 997534228 Z79.899 Labs are up-to-date from September. Patient does have updated orders to complete. Administra tion of influenza vaccine 83275390 Z23 Flu shot given today [id number] NATACHA Kwong [facility] [address] [place] [address] 04/27/2024 14:43:39 04/27/2024 16:25:52 Benign essential hypertension 8000521 I10 great control on medication . Rheumatoid arthritis 698 65136 M06.9 follows with Rheumatolo gy; pt taking hydroxychl oroquine 200mg bid Mixed hyperlipidemia 267 669524 E78.2 Stable on atorvastat in 20mg daily Hypothyroidism 58304511 E03.9 Thyroid function testing labs will be due again in August and october she is on synthroid 75mcg daily from [facility] Blood gluc ose outside reference range 159016715 R73.09 Slight increased risk for developing diabetes. Following A1c which is due again in August and October Osteoporosis 56532359 M8 1.0 due for vit d lab. Pt is taking fosamax 70mg weekly script Long-term drug therapy 397347577 Z79.899 routine bmp and cbc and LFT and vitamin B12/folate Hyponatremia 19535426 E8 7.1 this has previously been worked up with testing at prior office location. We will be following BMP levels each lab Gastroesop hageal reflux disease 311592722 K21.9 Add famotidine 40 mg daily to dinner which worked well for her in the past and then she forgot to continue dosing Depressive disorder 8027 7748 F32.A Start trial of duloxetine 30 mg daily which may help with her underlying depression from the recent loss of her this year and also for her pain from her rheumatolo gic condition Health Concerns Section Related Observation LastModified by Organization Detai ls LastModified Time None Recorded Concern Status LastModified by Organization Details LastModified Time None Recorded Advance Directives Directive Y: Payers Encounter Date Sequence Insurance Name Policy Number Policy Resendiz Covered Member ID Resendiz Member ID Guarantor Name 08/28/2023 2 [place] [id number] Sandra Dudak [id number] Sandra Dudak 02/03/2024 2 [place] [id number] Sandra Dudak [id number] Sandra Dudak 02/03/2024 1 [place] Sandra A Dudak [id number] Sandra Dudak 03/15/2024 2 [place] [id number] Sandra Dudak [id number] Sandra Dudak 03/15/2024 1 [place] Sandra A Dudak [id number] Sandra Dudak 04/27/2024 2 [place] [id number] Sandra Dudak [id number] Sandra Dudak 04/27/2024 1 [place] Sandra A Dudak [id number] Sandra Dudak Notes Date Note Type Note Provider Name and Address Organization Details Recorded Time 4 text/html HyperlipidemiaReported bypatient.Notes:pt is taking atorvastatin 20mg daily.HypertensionReported bypatient.Notes:pt stopped her amlodipine due to swelling and her BP is quite elevated today as a results.Reflux/GERDReported bypatient.Notes:pt is taking omeprazole 40mg daily and stable.ThyroidReported bypatient.Notes:pt takes thyroid supplement. due for labs NATACHA Kwong Attn: Accounting,[address] [facility], [place], [address], [facility] 09/05/2023 10:59:43 4 text/html HyperlipidemiaReported bypatient.Notes:pt is taking atorvastatin 20mg daily.HypertensionReported bypatient.Notes:pt stopped her amlodipine due to swelling and her BP is quite elevated today as a results.Reflux/GERDReported bypatient.Associated Symptoms:nauseaNotes:pt is taking omeprazole 40mg daily and stable.ThyroidReported bypatient.Notes:pt takes thyroid supplement. due for labs pt. states that she has been having some stomach issues states that she feels nauseous a little while after eating states thats she feels as if she is going to vomit but it won't come up states that she also has been extremely fatigue loss of energy. Patient also lost her due to cardiac arrest a month ago NATACHA Kwong Attn: Accounting,[address] [facility], [place], [address], [place] [facility] 02/08/2024 22:23:59 4 text/html HypertensionReported bypatient.Notes:Patient is here for follow-up on blood pressure. She is now on higher dose of coreg 12.5mg bid and Lisinopril 20mg daily. NATACHA Kwong Attn: Accounting,[address], [place], [address], [facility] [place] 04/04/2024 23:36:04 4 text/html HyperlipidemiaReported bypatient.Notes:pt is taking atorvastatin 20mg daily.HypertensionReported bypatient.Notes:She is now on higher dose of coreg 12.5mg bid and Lisinopril 20mg daily. Reflux/GERDReported bypatient.Notes:pt is taking omeprazole 40mg daily and stable.ThyroidReported bypatient.Notes:pt takes thyroid supplement. due for labs Patient did consult with Cardiology in [place] and they had no acute concerns or changes to the regimen and will follow up with her again next year. We did not receive a consult note from that visit yet but the patient updated us NATACHA Kwong Attn: Accounting,[address], [place], [address], [facility] - [facility] 05/08/2024 19:10:13 OBGyn Episode No OBEpisode recorded.
== END 2024-06-29 10:28 | disposition home or self-care (01) ==
PROVIDERS: PCP Physician Assistant; Visit Provider Internal Medicine Gastroenterology
PROC: 0DJ08ZZ Inspection of Upper Intestinal Tract, Via Natural or Artificial Opening Endoscopic (ICD-10-PCS; CPT 43239; principal; 2024-06-29 10:00)
DX: K21.00 Gastro-esophageal reflux disease with esophagitis, without bleeding (principal); K29.50 Unspecified chronic gastritis without bleeding
CPT/HCPCS: 43239; 88305; J2003; J2704; J7120

== ENCOUNTER 2024-11-08 13:06 | Outpatient (CLI) | payer MEDICARE, SELFPAY ==
--- NOTE | ~2024-11-08 | CT_ITS ---
CT of the Abdomen and Pelvis: Indication: Right lower quadrant abdominal wall mass Technique: 2.5 mm axial scans were obtained through the abdomen and pelvis following intravenous adm inistration of 100 cc of Omnipaque 350. Dose reduction technique was used on this scan by utilizing a utomated exposure control and iterative reconstruction technique. The dose-length product (DLP) was 2 05.24 mGy-cm. COMPARISON: 04/28/2023 Findings: Scans through the lung bases demonstrate minimal peripheral chronic interstitial disease. Cholecystectomy clips and pneumobilia are present. The liver, spleen, pancreas, adrenals and kidneys are otherwise within normal limits. There are severe atherosclerotic calcifications of the aorta and iliac vessels. No lymphadenopathy. Left inguinal hernia contains a focal small bowel. Right-sided spigelian hernia also contains a focal loop of small bowel. No bowel wall thickening or bowel obstruction seen. Images through the pelvis were performed. Urinary bladder unremarkable. Calcified fibroid present. No other pelvic mass seen. No ascites. T11 vertebroplasty present. Impression: Left inguinal hernia contains a focal loop of small bowel. Right-sided spigelian hernia also contains a focal loop of small bowel. No bowel wall thickening of bowel obstruction. Minimal peripheral chronic pulmonary interstitial disease. Calcified fibroid. Reviewed, dictated and finalized at location . Impression: Left inguinal hernia contains a focal loop of small bowel. Right-sided spigelia n hernia also contains a focal loop of small bowel. No bowel wall thickening of bowel obstruction. Minimal peripheral chronic pulmonary interstitial disease. Calcified fibroid.
--- OUTSIDE RECORDS SUMMARY | 2024-11-08 13:18 | XMS_ITS | Data Portability ---
Author Organization [facility], Main Office Address [address] [place] [address] Assessment Encounter Date Assessment Date Assessment LastModified by Organization Details LastModified Time 09/03/2022 09/03/2022 mammogram and DEXA scheduled. seeing rheum now and on plaquinil [email or web address] Not available 09/03/2022 15:03:05 11/18/2022 11/18/2022 I have reconciled the patient's medications post their discharge from inpatient facility. [email or web address] Not available 11/18/2022 14:23:04 Plan of Treatment Reminders Order Date Submit Date Provider Last Modified By Organization Details Last Modified Time Details Appointments None recorded. Lab HbA1c (hemoglobin A1c), blood 2022 023 [employer], [address], [address], [place], [address], 3 04:00:43 hepatic function panel, serum 2022 023 [employer] [facility], [address], [place], [address], 3 04:00:44 CBC w/ auto diff 2022 023 [employer] [facility], [address], [place], [address], 3 04:00:45 iron + TIBC + ferritin, serum 2022 023 [employer] [facility], [address], [place], [address], 3 04:00:39 lipid panel, serum 2022 023 [facility], [address], [address], [place], [address], 3 04:00:41 BMP, serum or plasma 2022 023 MELL [facility], [address], [address], [place], [address], 3 04:00:42 TSH + free T4, serum 2022 023 MELL [facility], [address], [address], [place], [address], 3 04:00:40 BMP, serum or plasma 2022 023 [email or web address] 4 [facility], [address], [address], [place], [address], 3 15:53:56 HbA1c (hemoglobin A1c), blood 2022 023 [email or web address] 4 [facility], [address], [address], [place], [address], 3 15:53:56 CBC w/ auto diff 2022 023 [email or web address] 4 [facility], [address], [address], [place], [address], 3 15:53:55 iron + TIBC + ferritin, serum 2022 023 [email or web address] 4 [facility], [address], [place], [address], 3 15:53:55 CBC w/ auto diff 2022 023 [email or web address] 4 [facility], [address], [place], [address], 3 12:23:19 BMP, serum or plasma 2022 023 [email or web address] 4 [facility], [address], [address], [place], [address], 3 12:23:38 hepatic function panel, serum 2022 023 [email or web address] 4 [facility], [address], [facility], [place], [address], 3 12:23:45 HbA1c (hemoglobin A1c), blood 2022 023 [email or web address] 4 [facility], [address], [address], [place], [address], 3 12:23:10 TSH, serum or plasma 2022 023 [email or web address] 4 [facility], [address], [facility], [place], [address], 3 12:05:32 T4, free, serum 2022 023 [email or web address] 4 [facility], [address], [address], [place], [address], 3 12:05:48 lipid panel, serum 2022 023 [email or web address] 4 [facility], [address], [facility], [place], [address], 3 12:05:14 Referral EGD referral 2022 023 [email or web address] Lisa Duvall MD, [address], [address], [place], [address], 3 15:59:37 Procedures None recorded. Surgeries None recorded. Imaging CT, chest, w/o contrast 2022 023 [email or web address] 4 [facility] [address], [place] [address], [place], [address], 16:56:29 Medication Orders omeprazole 40 mg capsule,del ayed release 2022 023 MELL [facility], [address] [place] [address], [place], [address], 14:59:04 Patient TargetsNo targets recorded. Patient Instructions Encounter Date Encounter Id Patient Instructions Last Modified By Organization Details Last Modified Time 11/18/2022 [id number] Thank you for your visit to our office today. We would like to request that you reach out to your referring or previous provider and request that they send us a Summary of Care in electronic form, so that we may have it on file in your medical record. At your visit, we had the medical records we needed to provide you with the best possible care; however, for insurance purposes, an electronic Summary of Care is beneficial. Thank you for your assistance in obtaining this information and we look forward to providing continued care to you. Please review your medication list from the Summary of Care for this visit. If there are any differences from what you are currently taking at home, please call us to discuss. [email or web address] Not available 11/18/2022 14:23:04 [email or web address] Not available 2022 23:26:29 Reason for Referral EGD Referral for Hiatal dorita ia with gastroesophageal reflux Referring Physician: Naida Kent, Internal Medicine, Encounter Date: 02/18/2023 Results Created Date Observation Date Name Description Value Unit Range Abnormal Flag Note LastModifiedBy Organization Detail LastModifiedTime 11/26/19 23 11/26/2022 LIPID PANEL WITH RATIO S cholesterol, total 159 mg/dL <200 normal Not Available [facility] [address] [place], [address], 11/26/2022 03:58:53 11/26/19 23 11/26/2022 LIPID PANEL WITH RATIO S HDL cholesterol 89 mg/dL > or = 50 normal Not Available [facility] [address] [place], [address], 11/26/2022 03:58:53 11/26/19 23 11/26/2022 LIPID PANEL WITH RATIO S triglyceride s 78 mg/dL <150 normal Not Available [address], [address], 11/26/2022 03:58:53 11/26/19 23 11/26/2022 LIPID PANEL WITH RATIO S LDL-choleste rol 54 mg/dL _(corbin c) normal Refer ence range : <100 Frida able range <100 mg/dL for prima ry preve ntion ; <70 mg/dL for patie nts with CHD or diabe tic patie nts with > or = 2 CHD risk facto rs. LDL-C is now calcu lated using the Ele n-Hop kins calcu latio n, which is a valid ated novel nichole dove r accur acy than the Fried shelia equat ion in the estim ation of LDL-C . Ele mims SS et al. GOPAL. 2013; 310(1 9): 2061- 2068 (http ://ed ucati on.Qu chantaleJustSpotted. com/f aq/FA Q164) Not Available [address], [address], 11/26/2022 03:58:53 11/26/19 23 11/26/2022 LIPID PANEL WITH RATIO S chol/HDLC ratio 1.8 (calc ) <5.0 normal Not Available [address], [address], 11/26/2022 03:58:53 11/26/19 23 11/26/2022 LIPID PANEL WITH RATIO S LDL/HDL ratio 0.6 (calc ) Below avera ge Risk: <2.34 [place] Risk: 2.35- 4.12 Moder ate Risk: 4.13- 5.56 High Risk: >5.57 Not Available [address], [address], 11/26/2022 03:58:53 11/26/19 23 11/26/2022 LIPID PANEL WITH RATIO S non HDL cholesterol 70 mg/dL _(corbin c) <130 normal For patie nts with diabe dimas plus 1 major ASCVD risk facto r, treat ing to a non-H DL-C goal of <100 mg/dL (LDL- C of <70 mg/dL ) is consi dered a thera peuti c optio n. Not Available [address], [address], 11/26/2022 03:58:53 11/26/19 23 11/26/2022 BASIC METAB OLIC PANEL glucose 88 mg/dL 65-99 normal Fasti ng refer ence inter mirna Not Available [address], [address], 11/26/2022 03:58:54 11/26/19 23 11/26/2022 BASIC METAB OLIC PANEL urea nitrogen (BUN) 6 mg/dL 7-25 low Not Available [address], [address], 11/26/2022 03:58:54 11/26/19 23 11/26/2022 BASIC METAB OLIC PANEL creatinine 0.44 mg/dL 0.60-0 .95 low Not Available [address], [address], 11/26/2022 03:58:54 11/26/19 23 11/26/2022 BASIC METAB OLIC PANEL eGFR 98 mL/mi n/1.7 3m2 > or = 60 normal The eGFR is based on the CKD-E PI 2020 equat ion. To calcu late the new eGFR from a previ ous Creat inine or Cysta tin C resul t, go to https ://leah lewis.forest weaver/ghazal araya s/ kdoqi /gfr% 5Fcal culat or Not Available [facility] [address], [address], 11/26/2022 03:58:54 11/26/19 23 11/26/2022 BASIC METAB OLIC PANEL BUN/creatini ne ratio 14 (calc ) 6-22 normal Not Available [address], [address], 11/26/2022 03:58:54 11/26/19 23 11/26/2022 BASIC METAB OLIC PANEL sodium 135 mmol/ L 135-14 6 normal Not Available [address], [address], 11/26/2022 03:58:54 11/26/19 23 11/26/2022 BASIC METAB OLIC PANEL potassium 4.3 mmol/ L 3.5-5. 3 normal Not Available [address], [address], 11/26/2022 03:58:54 11/26/19 23 11/26/2022 BASIC METAB OLIC PANEL chloride 100 mmol/ L 98-110 normal Not Available [address], [address], 11/26/2022 03:58:54 11/26/19 23 11/26/2022 BASIC METAB OLIC PANEL carbon dioxide 25 mmol/ L 20-32 normal Not Available [address], [address], 11/26/2022 03:58:54 11/26/19 23 11/26/2022 BASIC METAB OLIC PANEL calcium 9.2 mg/dL 8.6-10 .4 normal Not Available [address], [address], 11/26/2022 03:58:54 11/26/19 23 11/26/2022 HEMOG LOBIN A1C hemoglobin A1C 5.3 %_of_ total _HGB <5.7 normal For the purpo se of donna dumontg for the prese nce of diabe dimas: <5.7% Consi stent with the absen ce of diabe dimas 5.7-6 .4% Consi stent with incre ased risk for diabe dimas (pred iabet es) > or =6.5% Consi stent with diabe dimas This assay resul t is consi stent with a decre ased risk of diabe dimas. Curre ntly, no conse nsus exist s cyndie lopez use of hemog lobin A1c for diagn osis of diabe dimas in child ochoa. Accor ding to Ameri can Diabe dimas Assoc iatio n (ADA) guide lines , hemog lobin A1c <7.0% repre sents optim al contr ol in non-p regna nt diabe tic patie nts. Diffe rent metri cs may apply to speci fic patie nt popul ation s. Stand ards of Medic al Care in Diabe dimas(A DA). Not Available [address] [address] [place], [address], 11/26/2022 03:58:54 11/26/19 23 11/26/2022 HEPAT IC FUNCT ION PANEL protein, total 6.8 g/dL 6.1-8. 1 normal Not Available [address] [address] [place], [address], 11/26/2022 03:58:55 11/26/19 23 11/26/2022 HEPAT IC FUNCT ION PANEL albumin 4.2 g/dL 3.6-5. 1 normal Not Available [facility] [address] [address] [place], [address], 11/26/2022 03:58:55 11/26/19 23 11/26/2022 HEPAT IC FUNCT ION PANEL globulin 2.6 g/dL_ (calc ) 1.9-3. 7 normal Not Available [facility] [address], [address], 11/26/2022 03:58:55 11/26/19 23 11/26/2022 HEPAT IC FUNCT ION PANEL albumin/glob ulin ratio 1.6 (calc ) 1.0-2. 5 normal Not Available [address] [address] [place], [address], 11/26/2022 03:58:55 11/26/19 23 11/26/2022 HEPAT IC FUNCT ION PANEL bilirubin, total 0.5 mg/dL 0.2-1. 2 normal Not Available [address] [address] [place], [address], 11/26/2022 03:58:55 11/26/19 23 11/26/2022 HEPAT IC FUNCT ION PANEL bilirubin, direct 0.1 mg/dL < or = 0.2 normal Not Available [address] [address] [place], [address], 11/26/2022 03:58:55 11/26/19 23 11/26/2022 HEPAT IC FUNCT ION PANEL bilirubin, indirect 0.4 mg/dL _(corbin c) 0.2-1. 2 normal Not Available [address] [address] [place], [address], 11/26/2022 03:58:55 11/26/19 23 11/26/2022 HEPAT IC FUNCT ION PANEL alkaline phosphatase 71 U/L 37-153 normal Not Available [facility] [employer] [address] [address] [place], [address], 11/26/2022 03:58:55 11/26/19 23 11/26/2022 HEPAT IC FUNCT ION PANEL AST 25 U/L 10-35 normal Not Available [address] [address] [place], [address], 11/26/2022 03:58:55 11/26/19 23 11/26/2022 HEPAT IC FUNCT ION PANEL ALT 21 U/L 6-29 normal Not Available [address] [address] [place], [address], 11/26/2022 03:58:55 11/26/19 23 11/26/2022 TSH TSH 2.13 mIU/L 0.40-4 .50 normal Not Available [address], [address], 11/26/2022 03:58:55 11/26/19 23 11/26/2022 T4, FREE T4, free 1.3 NG/dL 0.8-1. 8 normal Not Available [address], [address], 11/26/2022 03:58:56 11/26/19 23 11/26/2022 CBC (INCL UDES DIFF/ PLT) white blood cell count 7.0 thous and/u L 3.8-10 .8 normal Not Available [address], [address], 11/26/2022 03:58:57 11/26/19 23 11/26/2022 CBC (INCL UDES DIFF/ PLT) red blood cell count 3.72 jose eduardo on/uL 3.80-5 .10 low Not Available [facility] [address], [address], 11/26/2022 03:58:57 11/26/19 23 11/26/2022 CBC (INCL UDES DIFF/ PLT) hemoglobin 11.1 g/dL 11.7-1 5.5 low Not Available [facility] [address], [address], 11/26/2022 03:58:57 11/26/19 23 11/26/2022 CBC (INCL UDES DIFF/ PLT) hematocrit 32.5 % 35.0-4 5.0 low Not Available [facility] [address], [address], 11/26/2022 03:58:57 11/26/19 23 11/26/2022 CBC (INCL UDES DIFF/ PLT) MCV 87.4 fL 80.0-1 00.0 normal Not Available [address], [address], 11/26/2022 03:58:57 11/26/19 23 11/26/2022 CBC (INCL UDES DIFF/ PLT) MCH 29.8 pg 27.0-3 3.0 normal Not Available [address], [address], 11/26/2022 03:58:57 11/26/19 23 11/26/2022 CBC (INCL UDES DIFF/ PLT) MCHC 34.2 g/dL 32.0-3 6.0 normal Not Available [address], [address], 11/26/2022 03:58:57 11/26/19 23 11/26/2022 CBC (INCL UDES DIFF/ PLT) RDW 16.8 % 11.0-1 5.0 high Not Available [address], [address], 11/26/2022 03:58:57 11/26/19 23 11/26/2022 CBC (INCL UDES DIFF/ PLT) platelet count 433 thous and/u L 140-40 0 high Not Available [address], [address], 11/26/2022 03:58:57 11/26/19 23 11/26/2022 CBC (INCL UDES DIFF/ PLT) MPV 8.3 fL 7.5-12 .5 normal Not Available [address], [address], 11/26/2022 03:58:57 11/26/19 23 11/26/2022 CBC (INCL UDES DIFF/ PLT) absolute neutrophils 4907 cells /uL 1500-7 800 normal Not Available [address], [address], 11/26/2022 03:58:57 11/26/19 23 11/26/2022 CBC (INCL UDES DIFF/ PLT) absolute lymphocytes 1176 cells /uL 850-39 00 normal Not Available [address], [address], 11/26/2022 03:58:57 11/26/19 23 11/26/2022 CBC (INCL UDES DIFF/ PLT) absolute monocytes 700 cells /uL 200-95 0 normal Not Available [address], [address], 11/26/2022 03:58:57 11/26/19 23 11/26/2022 CBC (INCL UDES DIFF/ PLT) absolute eosinophils 147 cells /uL 15-500 normal Not Available [address], [address], 11/26/2022 03:58:57 11/26/19 23 11/26/2022 CBC (INCL UDES DIFF/ PLT) absolute basophils 70 cells /uL 0-200 normal Not Available [address], [address], 11/26/2022 03:58:57 11/26/19 23 11/26/2022 CBC (INCL UDES DIFF/ PLT) neutrophils 70.1 % normal Not Available [address], [address], 11/26/2022 03:58:57 11/26/19 23 11/26/2022 CBC (INCL UDES DIFF/ PLT) lymphocytes 16.8 % normal Not Available [address], [address], 11/26/2022 03:58:57 11/26/19 23 11/26/2022 CBC (INCL UDES DIFF/ PLT) monocytes 10.0 % normal Not Available [address], [address], 11/26/2022 03:58:57 11/26/19 23 11/26/2022 CBC (INCL UDES DIFF/ PLT) eosinophils 2.1 % normal Not Available [address], [address], 11/26/2022 03:58:57 11/26/19 23 11/26/2022 CBC (INCL UDES DIFF/ PLT) basophils 1.0 % normal Not Available [address], [address], 11/26/2022 03:58:57 05/07/20 23 05/08/2023 IRON, TIBC AND COLLETTE TIN PANEL iron, total 54 mcg/d L 45-160 normal Not Available [address], [address], 05/08/2023 04:00:39 05/07/20 23 05/08/2023 IRON, TIBC AND COLLETTE TIN PANEL iron binding capacity 340 mcg/d L_(ca lc) 250-45 0 normal Not Available [address], [address], 05/08/2023 04:00:39 05/07/20 23 05/08/2023 IRON, TIBC AND COLLETTE TIN PANEL % saturation 16 %_(ca lc) 16-45 normal Not Available [address], [address], 05/08/2023 04:00:39 05/07/20 23 05/08/2023 IRON, TIBC AND COLLETTE TIN PANEL ferritin 136 NG/mL 16-288 normal Not Available [address], [address], 05/08/2023 04:00:39 05/07/20 23 05/08/2023 TSH+F REE T4 TSH 5.75 mIU/L 0.40-4 .50 high Not Available [address], [place], [address], 05/08/2023 04:00:40 05/07/20 23 05/08/2023 TSH+F REE T4 T4, free 1.1 NG/dL 0.8-1. 8 normal Not Available [facility] [address], [address], 05/08/2023 04:00:40 05/07/20 23 05/08/2023 LIPID PANEL WITH RATIO S cholesterol, total 193 mg/dL <200 normal Not Available [facility] [address], [address], 05/08/2023 04:00:41 05/07/20 23 05/08/2023 LIPID PANEL WITH RATIO S HDL cholesterol 101 mg/dL > or = 50 normal Not Available [address], [address], 05/08/2023 04:00:41 05/07/20 23 05/08/2023 LIPID PANEL WITH RATIO S triglyceride s 64 mg/dL <150 normal Not Available [address], [address], 05/08/2023 04:00:41 05/07/20 23 05/08/2023 LIPID PANEL WITH RATIO S LDL-choleste rol 78 mg/dL _(corbin c) normal Refer ence range : <100 Frida able range <100 mg/dL for prima ry preve ntion ; <70 mg/dL for patie nts with CHD or diabe tic patie nts with > or = 2 CHD risk facto rs. LDL-C is now calcu lated using the Ele n-Hop eileen medeiros n, which is a valid ated novel nichole centeno than the Fried shelia equat ion in the estim ation of LDL-C . Ele mims SS et al. GOPAL. 2013; 310(1 9): 2061- 2068 (http ://ed ucati on.Qu estDi agnos tics. com/f aq/FA Q164) Not Available [address] [address] [place], [address], 05/08/2023 04:00:41 05/07/20 23 05/08/2023 LIPID PANEL WITH RATIO S chol/HDLC ratio 1.9 (calc ) <5.0 normal Not Available [address] [address] [place], [address], 05/08/2023 04:00:41 05/07/20 23 05/08/2023 LIPID PANEL WITH RATIO S LDL/HDL ratio 0.8 (calc ) Below avera ge Risk: <2.34 [place] Risk: 2.35- 4.12 Moder ate Risk: 4.13- 5.56 High Risk: >5.57 Not Available [address] [address] [place], [address], 05/08/2023 04:00:41 05/07/20 23 05/08/2023 LIPID PANEL WITH RATIO S non HDL cholesterol 92 mg/dL _(corbin c) <130 normal For patie nts with diabe dimas plus 1 major ASCVD risk facto r, treat ing to a non-H DL-C goal of <100 mg/dL (LDL- C of <70 mg/dL ) is consi arianed a hoang peuti c optio n. Not Available [address] [address] [place], [address], 05/08/2023 04:00:41 05/07/20 23 05/08/2023 BASIC METAB OLIC PANEL glucose 81 mg/dL 65-99 normal Fasti ng refer ence inter mirna Not Available [facility] [place] [address] [address] [place], [address], 05/08/2023 04:00:42 05/07/20 23 05/08/2023 BASIC METAB OLIC PANEL urea nitrogen (BUN) 8 mg/dL 7-25 normal Not Available [facility] [place] [address] [address] [place], [address], 05/08/2023 04:00:42 05/07/20 23 05/08/2023 BASIC METAB OLIC PANEL creatinine 0.49 mg/dL 0.60-0 .95 low Not Available [address], [address], 05/08/2023 04:00:42 05/07/20 23 05/08/2023 BASIC METAB OLIC PANEL eGFR 95 mL/mi n/1.7 3m2 > or = 60 normal Not Available [address], [address], 05/08/2023 04:00:42 05/07/2005/08/2023 BASIC METAB OLIC PANEL BUN/creatini ne ratio 16 (calc ) 6-22 normal Not Available [address], [address], 05/08/2023 04:00:42 05/07/20 23 05/08/2023 BASIC METAB OLIC PANEL sodium 133 mmol/ L 135-14 6 low Not Available [address], [address], 05/08/2023 04:00:42 05/07/20 23 05/08/2023 BASIC METAB OLIC PANEL potassium 3.7 mmol/ L 3.5-5. 3 normal Not Available [address], [address], 05/08/2023 04:00:42 05/07/20 23 05/08/2023 BASIC METAB OLIC PANEL chloride 98 mmol/ L 98-110 normal Not Available [address], [address], 05/08/2023 04:00:42 05/07/20 23 05/08/2023 BASIC METAB OLIC PANEL carbon dioxide 26 mmol/ L 20-32 normal Not Available [address], [address], 05/08/2023 04:00:42 05/07/20 23 05/08/2023 BASIC METAB OLIC PANEL calcium 9.1 mg/dL 8.6-10 .4 normal Not Available [facility] [address] [place], [address], 05/08/2023 04:00:42 05/07/20 23 05/08/2023 HEMOG LOBIN A1C hemoglobin A1C 5.4 %_of_ total _HGB <5.7 normal For the purpo se of scree benjaímn for the prese nce of diabe dimas: <5.7% Consi stent with the absen ce of diabe dimas 5.7-6 .4% Consi stent with incre ased risk for diabe dimas (pred iabet es) > or =6.5% Consi stent with diabe dimas This assay resul t is consi stent with a decre ased risk of diabe dimas. Curre ntly, no conse nsus exist s cyndie lopez use of hemog lobin A1c for diagn osis of diabe dimas in child ochoa. Accor ding to Ameri can Diabe dimas Assoc iatio n (ADA) guide lines , hemog lobin A1c <7.0% repre sents optim al contr ol in non-p regna nt diabe tic patie nts. Diffe rent metri cs may apply to speci fic patie nt popul ation s. Stand ards of Medic al Care in Diabe dimas(A DA). Not Available [facility] [address] [address] [place], [address], 05/08/2023 04:00:43 05/07/20 23 05/08/2023 HEPAT IC FUNCT ION PANEL protein, total 6.6 g/dL 6.1-8. 1 normal Not Available [facility] [address] [place], [address], 05/08/2023 04:00:44 05/07/20 23 05/08/2023 HEPAT IC FUNCT ION PANEL albumin 4.1 g/dL 3.6-5. 1 normal Not Available [address] [address] [place], [address], 05/08/2023 04:00:44 05/07/20 23 05/08/2023 HEPAT IC FUNCT ION PANEL globulin 2.5 g/dL_ (calc ) 1.9-3. 7 normal Not Available [address] [address] [place], [address], 05/08/2023 04:00:44 05/07/20 23 05/08/2023 HEPAT IC FUNCT ION PANEL albumin/glob ulin ratio 1.6 (calc ) 1.0-2. 5 normal Not Available [address], [address], 05/08/2023 04:00:44 05/07/20 23 05/08/2023 HEPAT IC FUNCT ION PANEL bilirubin, total 0.6 mg/dL 0.2-1. 2 normal Not Available [address], [address], 05/08/2023 04:00:44 05/07/2005/08/2023 HEPAT IC FUNCT ION PANEL bilirubin, direct 0.1 mg/dL < or = 0.2 normal Not Available [address] [place], [address], 05/08/2023 04:00:44 05/07/20 23 05/08/2023 HEPAT IC FUNCT ION PANEL bilirubin, indirect 0.5 mg/dL _(corbin c) 0.2-1. 2 normal Not Available [facility] [employer] [address] [address] [place], [address], 05/08/2023 04:00:44 05/07/20 23 05/08/2023 HEPAT IC FUNCT ION PANEL alkaline phosphatase 137 U/L 37-153 normal Not Available [facility] [employer] [address] [address] [place], [address], 05/08/2023 04:00:44 05/07/20 23 05/08/2023 HEPAT IC FUNCT ION PANEL AST 24 U/L 10-35 normal Not Available [address], [address], 05/08/2023 04:00:44 05/07/20 23 05/08/2023 HEPAT IC FUNCT ION PANEL ALT 20 U/L 6-29 normal Not Available [address], [address], 05/08/2023 04:00:44 05/07/20 23 05/08/2023 CBC (INCL UDES DIFF/ PLT) white blood cell count 10.7 thous and/u L 3.8-10 .8 normal Not Available [address], [address], 05/08/2023 04:00:45 05/07/20 23 05/08/2023 CBC (INCL UDES DIFF/ PLT) red blood cell count 3.84 jose eduardo on/uL 3.80-5 .10 normal Not Available [address], [address], 05/08/2023 04:00:45 05/07/20 23 05/08/2023 CBC (INCL UDES DIFF/ PLT) hemoglobin 11.3 g/dL 11.7-1 5.5 low Not Available [address], [address], 05/08/2023 04:00:45 05/07/20 23 05/08/2023 CBC (INCL UDES DIFF/ PLT) hematocrit 33.4 % 35.0-4 5.0 low Not Available [address], [address], 05/08/2023 04:00:45 05/07/20 23 05/08/2023 CBC (INCL UDES DIFF/ PLT) MCV 87.0 fL 80.0-1 00.0 normal Not Available [address], [address], 05/08/2023 04:00:45 05/07/20 23 05/08/2023 CBC (INCL UDES DIFF/ PLT) MCH 29.4 pg 27.0-3 3.0 normal Not Available [address], [address], 05/08/2023 04:00:45 05/07/20 23 05/08/2023 CBC (INCL UDES DIFF/ PLT) MCHC 33.8 g/dL 32.0-3 6.0 normal Not Available [address], [address], 05/08/2023 04:00:45 05/07/20 23 05/08/2023 CBC (INCL UDES DIFF/ PLT) RDW 15.6 % 11.0-1 5.0 high Not Available [address], [address], 05/08/2023 04:00:45 05/07/20 23 05/08/2023 CBC (INCL UDES DIFF/ PLT) platelet count 421 thous and/u L 140-40 0 high Not Available [address], [address], 05/08/2023 04:00:45 05/07/20 23 05/08/2023 CBC (INCL UDES DIFF/ PLT) MPV 8.2 fL 7.5-12 .5 normal Not Available [facility] [address], [address], 05/08/2023 04:00:45 05/07/20 23 05/08/2023 CBC (INCL UDES DIFF/ PLT) absolute neutrophils 8731 cells /uL 1500-7 800 high Not Available [facility] [address], [address], 05/08/2023 04:00:45 05/07/20 23 05/08/2023 CBC (INCL UDES DIFF/ PLT) absolute lymphocytes 1070 cells /uL 850-39 00 normal Not Available [address], [address], 05/08/2023 04:00:45 05/07/20 23 05/08/2023 CBC (INCL UDES DIFF/ PLT) absolute monocytes 803 cells /uL 200-95 0 normal Not Available [address], [address], 05/08/2023 04:00:45 05/07/2005/08/2023 CBC (INCL UDES DIFF/ PLT) absolute eosinophils 43 cells /uL 15-500 normal Not Available [address], [address], 05/08/2023 04:00:45 05/07/20 23 05/08/2023 CBC (INCL UDES DIFF/ PLT) absolute basophils 54 cells /uL 0-200 normal Not Available [address], [address], 05/08/2023 04:00:45 05/07/20 23 05/08/2023 CBC (INCL UDES DIFF/ PLT) neutrophils 81.6 % normal Not Available [address], [address], 05/08/2023 04:00:45 05/07/20 23 05/08/2023 CBC (INCL UDES DIFF/ PLT) lymphocytes 10.0 % normal Not Available [address], [address], 05/08/2023 04:00:45 05/07/20 23 05/08/2023 CBC (INCL UDES DIFF/ PLT) monocytes 7.5 % normal Not Available [address], [address], 05/08/2023 04:00:45 05/07/20 23 05/08/2023 CBC (INCL UDES DIFF/ PLT) eosinophils 0.4 % normal Not Available [address], [address], 05/08/2023 04:00:45 05/07/20 23 05/08/2023 CBC (INCL UDES DIFF/ PLT) basophils 0.5 % normal Not Available [address], [address], 05/08/2023 04:00:45 09/15/19 24 09/16/2023 LIPID PANEL WITH RATIO S cholesterol, total 183 mg/dL <200 normal Not Available [address], [address], 09/16/2023 06:50:05 09/15/19 24 09/16/2023 LIPID PANEL WITH RATIO S HDL cholesterol 101 mg/dL > or = 50 normal Not Available [address], [address], 09/16/2023 06:50:05 09/15/19 24 09/16/2023 LIPID PANEL WITH RATIO S triglyceride s 84 mg/dL <150 normal Not Available [address], [address], 09/16/2023 06:50:05 09/15/19 24 09/16/2023 LIPID PANEL WITH RATIO S LDL-choleste rol 66 mg/dL _(corbin c) normal Refer ence range : <100 Frida able range <100 mg/dL for prima ry preve ntion ; <70 mg/dL for patie nts with CHD or diabe tic patie nts with > or = 2 CHD risk facto rs. LDL-C is now calcu lated using the Ele n-Hop kins calcu latio n, which is a valid ated novel metho d jacky dove r accur acshannon than the Fried shelia equat ion in the estim ation of LDL-C . Ele n SS et al. GOPAL. 2013; 310(1 9): 2061- 2068 (http ://ed ucati on.Zina luisKIXEYE. com/f aq/FA Q164) Not Available [address] [address] [place], [address], 09/16/2023 06:50:05 09/15/19 24 09/16/2023 LIPID PANEL WITH RATIO S chol/HDLC ratio 1.8 (calc ) <5.0 normal Not Available [facility] [address] [address] [place], [address], 09/16/2023 06:50:05 09/15/1909/16/2023 LIPID PANEL WITH RATIO S LDL/HDL ratio 0.7 (calc ) Below avera ge Risk: <2.34 [place] ge Risk: 2.35- 4.12 Moder ate Risk: 4.13- 5.56 High Risk: >5.57 Not Available [address] , [place], [address], 09/16/2023 06:50:05 09/15/19 24 09/16/2023 LIPID PANEL WITH RATIO S non HDL cholesterol 82 mg/dL _(corbin c) <130 normal For patie nts with diabe dimas plus 1 major ASCVD risk facto r, treat ing to a non-H DL-C goal of <100 mg/dL (LDL- C of <70 mg/dL ) is consi dered a thera pebartolo c optio n. Not Available [address] [address] [place], [address], 09/16/2023 06:50:05 09/15/1909/16/2023 BASIC METAB OLIC PANEL glucose 91 mg/dL 65-99 normal Fasti ng refer ence inter mirna Not Available [facility] [address] [address] [place], [address], 09/16/2023 06:50:06 09/15/19 24 09/16/2023 BASIC METAB OLIC PANEL urea nitrogen (BUN) 6 mg/dL 7-25 low Not Available [address], [address], 09/16/2023 06:50:06 09/15/19 24 09/16/2023 BASIC METAB OLIC PANEL creatinine 0.44 mg/dL 0.60-0 .95 low Not Available [address], [address], 09/16/2023 06:50:06 09/15/19 24 09/16/2023 BASIC METAB OLIC PANEL eGFR 98 mL/mi n/1.7 3m2 > or = 60 normal Not Available [address], [address], 09/16/2023 06:50:06 09/15/19 24 09/16/2023 BASIC METAB OLIC PANEL BUN/creatini ne ratio 14 (calc ) 6-22 normal Not Available [address], [address], 09/16/2023 06:50:06 09/15/19 24 09/16/2023 BASIC METAB OLIC PANEL sodium 134 mmol/ L 135-14 6 low Not Available [address], [address], 09/16/2023 06:50:06 09/15/19 24 09/16/2023 BASIC METAB OLIC PANEL potassium 4.2 mmol/ L 3.5-5. 3 normal Not Available [address], [address], 09/16/2023 06:50:06 09/15/19 24 09/16/2023 BASIC METAB OLIC PANEL chloride 101 mmol/ L 98-110 normal Not Available [address], [address], 09/16/2023 06:50:06 09/15/19 24 09/16/2023 BASIC METAB OLIC PANEL carbon dioxide 26 mmol/ L 20-32 normal Not Available [facility] [address] [place], [address], 09/16/2023 06:50:06 09/15/19 24 09/16/2023 BASIC METAB OLIC PANEL calcium 9.2 mg/dL 8.6-10 .4 normal Not Available [facility] [address] [address] , [place], [address], 09/16/2023 06:50:06 09/15/19 24 09/16/2023 HEMOG LOBIN A1C hemoglobin A1C 5.8 %_of_ total _HGB <5.7 high For someo ne witho ut known diabe dimas, a hemog lobin A1c value betwe en 5.7% and 6.4% is consi stent with predi abete s and shoul d be confi rmed with a follo w-up test. For someo ne with known diabe dimas, a value <7% indic ates that their diabe dimas is well contr olled . A1c targe ts shoul d be indiv idual ized based on durat ion of diabe dimas, age, comor bid condi tions , and other consi derat ions. This assay resul t is consi stent with an incre ased risk of diabe dimas. Curre ntly, no conse nsus exist s regar ding use of hemog lobin A1c for diagn osis of diabe dimas for child ochoa. This test was perfo rmed on the [employer] diane c503 platf orm. Effec tive , a gregorio e in test platf orms from the [facility] t[facility] to the Ind[facility] diane c503 may have shift ed HbA1c resul ts radu red to histo rical resul ts. Based on labor atory valid ation testi ng condu cted at [facility] , the [facility] platf orm relat keiko to the [employer] platf orm had an avera ge incre ase in HbA1c value of < or = 0.3%. This diffe rence is withi n accep carlos varia bilit y estab lishe d by the Javan graham [employer] hemog lobin Stand shyann ation Progr am. Note that not all indiv idual s will have had a shift in their resul ts and direc t radu rison s betwe en histo rical and curre nt resul ts for testi ng condu cted on diffe rent platf orms is not recom meg d. Not Available [address] [address] [place], [address], 09/16/2023 06:50:07 09/15/19 24 09/16/2023 HEPAT IC FUNCT ION PANEL protein, total 6.5 g/dL 6.1-8. 1 normal Not Available [address], [address], 09/16/2023 06:50:08 09/15/19 24 09/16/2023 HEPAT IC FUNCT ION PANEL albumin 4.2 g/dL 3.6-5. 1 normal Not Available [address] [address] [place], [address], 09/16/2023 06:50:08 09/15/19 24 09/16/2023 HEPAT IC FUNCT ION PANEL globulin 2.3 g/dL_ (calc ) 1.9-3. 7 normal Not Available [address] [address] [place], [address], 09/16/2023 06:50:08 09/15/19 24 09/16/2023 HEPAT IC FUNCT ION PANEL albumin/glob ulin ratio 1.8 (calc ) 1.0-2. 5 normal Not Available [facility] [address] [address] [place], [address], 09/16/2023 06:50:08 09/15/19 24 09/16/2023 HEPAT IC FUNCT ION PANEL bilirubin, total 0.5 mg/dL 0.2-1. 2 normal Not Available [facility] [address], [address], 09/16/2023 06:50:08 09/15/19 24 09/16/2023 HEPAT IC FUNCT ION PANEL bilirubin, direct 0.1 mg/dL < or = 0.2 normal Not Available [address], [address], 09/16/2023 06:50:08 09/15/19 24 09/16/2023 HEPAT IC FUNCT ION PANEL bilirubin, indirect 0.4 mg/dL _(corbin c) 0.2-1. 2 normal Not Available [address], [address], 09/16/2023 06:50:08 09/15/19 24 09/16/2023 HEPAT IC FUNCT ION PANEL alkaline phosphatase 66 U/L 37-153 normal Not Available [address], [address], 09/16/2023 06:50:08 09/15/19 24 09/16/2023 HEPAT IC FUNCT ION PANEL AST 20 U/L 10-35 normal Not Available [address], [address], 09/16/2023 06:50:08 09/15/19 24 09/16/2023 HEPAT IC FUNCT ION PANEL ALT 15 U/L 6-29 normal Not Available [address], [address], 09/16/2023 06:50:08 09/15/19 24 09/16/2023 TSH TSH 2.27 mIU/L 0.40-4 .50 normal Not Available [address], [address], 09/16/2023 06:50:09 09/15/19 24 09/16/2023 T4, FREE T4, free 1.2 NG/dL 0.8-1. 8 normal Not Available [facility] [address], [address], 09/16/2023 06:50:10 09/15/19 24 09/16/2023 CBC (INCL UDES DIFF/ PLT) white blood cell count 7.7 thous and/u L 3.8-10 .8 normal Not Available [address], [address], 09/16/2023 06:50:11 09/15/19 24 09/16/2023 CBC (INCL UDES DIFF/ PLT) red blood cell count 4.40 jose eduardo on/uL 3.80-5 .10 normal Not Available [address], [address], 09/16/2023 06:50:11 09/15/19 24 09/16/2023 CBC (INCL UDES DIFF/ PLT) hemoglobin 12.6 g/dL 11.7-1 5.5 normal Not Available [address], [address], 09/16/2023 06:50:11 09/15/19 24 09/16/2023 CBC (INCL UDES DIFF/ PLT) hematocrit 38.3 % 35.0-4 5.0 normal Not Available [address], [address], 09/16/2023 06:50:11 09/15/19 24 09/16/2023 CBC (INCL UDES DIFF/ PLT) MCV 87.0 fL 80.0-1 00.0 normal Not Available [address], [address], 09/16/2023 06:50:11 09/15/19 24 09/16/2023 CBC (INCL UDES DIFF/ PLT) MCH 28.6 pg 27.0-3 3.0 normal Not Available [facility] [address], [address], 09/16/2023 06:50:11 09/15/19 24 09/16/2023 CBC (INCL UDES DIFF/ PLT) MCHC 32.9 g/dL 32.0-3 6.0 normal Not Available [address], [address], 09/16/2023 06:50:11 09/15/19 24 09/16/2023 CBC (INCL UDES DIFF/ PLT) RDW 13.0 % 11.0-1 5.0 normal Not Available [address], [address], 09/16/2023 06:50:11 09/15/19 24 09/16/2023 CBC (INCL UDES DIFF/ PLT) platelet count 396 thous and/u L 140-40 0 normal Not Available [address], [address], 09/16/2023 06:50:11 09/15/19 24 09/16/2023 CBC (INCL UDES DIFF/ PLT) MPV 8.7 fL 7.5-12 .5 normal Not Available [address], [address], 09/16/2023 06:50:11 09/15/19 24 09/16/2023 CBC (INCL UDES DIFF/ PLT) absolute neutrophils 5583 cells /uL 1500-7 800 normal Not Available [address], [address], 09/16/2023 06:50:11 09/15/19 24 09/16/2023 CBC (INCL UDES DIFF/ PLT) absolute lymphocytes 1124 cells /uL 850-39 00 normal Not Available [address], [address], 09/16/2023 06:50:11 09/15/19 24 09/16/2023 CBC (INCL UDES DIFF/ PLT) absolute monocytes 716 cells /uL 200-95 0 normal Not Available [facility] [address], [address], 09/16/2023 06:50:11 09/15/19 24 09/16/2023 CBC (INCL UDES DIFF/ PLT) absolute eosinophils 231 cells /uL 15-500 normal Not Available [facility] [address], [address], 09/16/2023 06:50:11 09/15/19 24 09/16/2023 CBC (INCL UDES DIFF/ PLT) absolute basophils 46 cells /uL 0-200 normal Not Available [facility] [address], [address], 09/16/2023 06:50:11 09/15/19 24 09/16/2023 CBC (INCL UDES DIFF/ PLT) neutrophils 72.5 % normal Not Available [facility] [address], [address], 09/16/2023 06:50:11 09/15/19 24 09/16/2023 CBC (INCL UDES DIFF/ PLT) lymphocytes 14.6 % normal Not Available [facility] [address], [address], 09/16/2023 06:50:11 09/15/19 24 09/16/2023 CBC (INCL UDES DIFF/ PLT) monocytes 9.3 % normal Not Available [facility] [address], [address], 09/16/2023 06:50:11 09/15/19 24 09/16/2023 CBC (INCL UDES DIFF/ PLT) eosinophils 3.0 % normal Not Available [facility] [address], [address], 09/16/2023 06:50:11 09/15/19 24 09/16/2023 CBC (INCL UDES DIFF/ PLT) basophils 0.6 % normal Not Available [facility] [address] [address] [place], [address], 09/16/2023 06:50:11 09/07/19 23 05/24/2022 MRI, cervi corbin spine , w/ contr ast No observ ation record ed. [email or web address] [facility] [address], [place], [address], 09/09/2022 14:22:40 09/07/19 23 05/24/2022 MRI, thora cic spine , w/wo contr ast No observ ation record ed. [email or web address] [facility] [address], [place], [address], 09/09/2022 14:22:16 10/18/19 23 10/10/2022 DEXA No observ ation record ed. [address], [place], [address], 11/18/2022 14:37:39 02/13/20 23 02/11/2023 MAMMO , scree benjamín, digit al, bilat eral No observ ation record ed. [address], [place], [address], 04/22/2023 13:57:00 04/29/20 23 04/28/2023 CT, angio gram, chest , w/o contr ast No observ ation record ed. [facility] [address], [place], [address], 05/05/2023 15:20:28 Result Notes None recorded. Problems Name Problem SNOMED Code Status Onset Date Resolution Date Notes Provider Name and Address Organization Details Recorded Time Atypical chest pain 526769632 Active 2021 Not Available [facility] 3 02:50:26 Benign essential hypertensi on 5471145 Active 2019 Not Available [facility] 3 02:50:26 Mass of left breast 0944245149610 9103 Active 2021 Not Available [facility] 3 02:50:26 Acute sinusitis 07404421 Active 2021 Not Available [facility] 3 02:50:26 Blood chemistry outside reference range 961652866 Active 2021 Not Available [facility] 3 02:50:26 Right inguinal hernia 688858888 Active 2021 Not Available [facility] 3 02:50:26 Right lower quadrant pain 501354720 Active 2021 Not Available [facility] 3 02:50:26 Osteopenia 975553645 Active 2019 Not Available [facility] 3 02:50:27 Vitamin D deficiency 11853041 Active 2021 Not Available [facility] 3 02:50:27 Pain of multiple joints 06951541 Active 2021 Not Available [facility] 3 02:50:27 Hiatal hernia with gastroesop hageal reflux 047653685 Active 2021 Not Available [facility] 3 02:50:27 Celiac disease 816596271 Active 2021 Not Available [facility] 3 02:50:27 Hypothyroi dism 60135573 Active 2021 Not Available [facility] 3 02:50:27 Hyperlipid emia 69964709 Active 2019 Not Available [facility] 3 02:50:27 Epigastric pain 58814592 Active 2021 Not Available [facility] 3 02:50:27 COVID-19 592242348 Active 2021 Not Available [facility] 3 02:50:27 Systemic sclerosis 07428730 Active 2022 NATACHA Kwong [address], [address], [place], [address] , [facility] 3 15:02:39 Blood glucose outside reference range 019062336 Active 2022 NATACHA Kwong [address], [address], [place], [address] , [facility] 3 15:04:18 Kidney disease 63808556 Active 2022 Namrata Christine RN null, [facility] 3 14:04:49 Chronic hyponatrem ia 22714691 Active 2022 NATACHA Kwong [address], [address], [place], [address] , [facility] 3 14:59:47 Hypokalemi a 14379085 Active 2022 NATACHA Kwong [address], [address], [place], [address] , [facility] 3 14:59:51 Anemia 621514684 Active 2022 NATACHA Kwong [address], [address], [place], [address] , [facility] 3 15:20:08 Hyponatrem ia 48672221 Active 2022 NATACHA Kwong [address], [address], [place], [address] , [facility] 3 15:20:45 Solitary nodule of lung 809264127 Active 2022 NATACHA Kwong [address], [address], [place], [address] , [facility] 3 12:50:12 Problem Notes None recorded. Procedures Surgical History Date Name Laterality Status Provider Name and Address Organization Details Recorded Time 08/02/19 23 laparoscopic repair of hernia completed CLINTON Couch [facility] 09/02/2022 12:43:12 06/09/19 19 Date of Last Colonoscopy completed Not Available [facility] 08/07/2022 02:44:49 06/09/19 19 colonoscopy completed Not Available [facility] 08/07/2022 02:44:52 other completed Not Available [facility] 08/07/2022 02:44:52 total knee replacement completed Not Available [facility] 08/07/2022 02:44:52 Appendectomy completed Not Available [facility] 08/07/2022 02:44:52 complete repair of rotator cuff completed Not Available [facility] 08/07/2022 02:44:52 Tonsillectomy completed Not Available [facility] 08/07/2022 02:44:52 Cholecystectomy completed Not Available [facility] 08/07/2022 02:44:52 Diskectomy, anterior, with d completed Not Available [facility] 08/07/2022 02:44:52 Imaging Results None recorded. Procedure Notes None recorded. Medical Equipment None Reported. Allergies Allergen ID Allergen Name Allergen Category Reaction Reaction Severity Criticality Documentation Date Start Date Code Code System Note Provider Name and Address Organization Details Recorded Time 4422 morphine medicatio n nausea Not available Not available 08/07/2022 7052 RxNorm Not Available [facility] 02:58:08 Medications Name Sig Start Date Stop Date Status Note LastModified by Organization Details LastModified Time iron 65mg tab TAKE 1 TABLET BY MOUTH ONCE DAILY active Not Available Not Available No t Available celecoxib 200 mg capsule TAKE 1 CAPSULE BY MOUTH ONCE DAILY w/food active Not Available Not Available No t Available atorvasta tin 20 mg tablet Take 1 tablet by mouth once daily active Not Available Not Available No t Available tizanidin e 2 mg tablet TAKE 1 TABLET BY MOUTH TWICE DAILY NEEDED FOR SPASMS active Not Available Not Available No t Available azithromy chrissy 250 mg tablet TAKE 2 TABLETS BY MOUTH ON DAY 1 AND THEN TAKE 1 TABLET BY MOUTH ONCE A DAY ON DAY 2 THROUGH DAY 5 12/28 completed Not Available Not Available Not Available Cartia XT 300 mg capsule,e xtended release TAKE 1 CAPSULE BY MOUTH ONCE DAILY 01/06 completed Not Available Not Available Not Available Lidocaine Viscous 2 % mucosal solution SWISH AND SPIT 15 ML(S) EVERY 3 HOURS NEEDED FOR MOUTH PAIN active Not Available Not Available No t Available lisinopri l 20 mg tablet TAKE 1 TABLET BY MOUTH IN THE MORNING active Not Available Not Available No t Available alendrona te 70 mg tablet TAKE 1 TABLET BY MOUTH ONCE A WEEK active Not Available Not Available No t Available amlodipin e 2.5 mg tablet TAKE 1 TABLET BY MOUTH ONCE DAILY 11/18 completed Not Available Not Available Not Available amlodipin e 5 mg tablet TAKE 1 TABLET BY MOUTH ONCE DAILY active Not Available Not Available No t Available valacyclo vir 500 mg tablet TAKE 1 TABLET BY MOUTH ONCE DAILY active Not Available Not Available No t Available omeprazol e 40 mg capsule,d elayed release TAKE 1 CAPSULE BY MOUTH ONCE DAILY active Not Available Not Available No t Available carvedilo l 3.125 mg tablet TAKE 1 TABLET BY MOUTH TWICE A DAY active Not Available Not Available No t Available oxycodone -acetamin ophen 5 mg-325 mg tablet TAKE 1 TABLET BY MOUTH EVERY 6 HOURS NEEDED FOR 7 DAYS active Not Available Not Available No t Available amoxicill in 875 mg tablet TAKE 1 TABLET BY MOUTH EVERY 12 HOURS FOR 10 DAYS 11/18 completed Not Available Not Available Not Available prednison e 1 mg tablet TAKE 4 TABLETS BY MOUTH DAILY 04/30 completed Not Available Not Available Not Available amlodipin e 10 mg tablet TAKE 1 TABLET BY MOUTH ONCE DAILY 01/06 completed Not Available Not Available Not Available benzonata te 100 mg capsule 12/28 completed Not Available Not Available Not Available cephalexi n 500 mg capsule TAKE 1 CAPSULE BY MOUTH FOUR TIMES A DAY FOR 7 DAYS active Not Available Not Available No t Available ferrous sulfate 325 mg (65 mg iron) tablet TAKE 1 TABLET BY MOUTH ONCE DAILY active Not Available Not Available No t Available Synthroid 75 mcg tablet Take 1 tablet every day by oral route. 2022 active Not Available Not Available Not Avai lable lisinopri l 20 mg-hydroc hlorothia zide 25 mg tablet TAKE 1 TABLET BY MOUTH ONCE DAILY 11/18 completed Not Available Not Available Not Available ergocalci ferol (vitamin D2) 1,250 mcg (50,000 unit) capsule TAKE 1 CAPSULE BY MOUTH ONCE A WEEK active Not Available Not Available No t Available hydroxych loroquine 200 mg tablet TAKE 1 TABLET BY MOUTH TWICE DAILY active Not Available Not Available No t Available oxycodone -acetamin ophen 7.5 mg-325 mg tablet TAKE 1 TABLET BY MOUTH EVERY 6 HOURS NEEDED active Not Available Not Available No t Available methylpre dnisolone 4 mg tablets in a dose pack TAKE BY MOUTH DIRECTED ON INSIDE OF PACKAGE 09/03 completed Not Available Not Available Not Available fluticaso ne propionat e 50 mcg/actua tion nasal spray,shelia pension USE 2 SPRAY(S) IN EACH NOSTRIL ONCE DAILY FOR 10 DAYS THEN NEEDED 04/26 completed Not Available Not Available Not Available Oxycodone W/Acetami nophen 5 mg-325 mg tablet Take 1 tablet every 6 hours by oral route as needed. 04/26 completed sees [facility] in [place] DR. Meeks for manageme nt Not Available Not Available Not Available duloxetin e 30 mg capsule,d elayed release TAKE 1 CAPSULE BY MOUTH ONCE DAILY active Not Available Not Available No t Available zinc otc, takes daily 2020 active Not Available Not Available Not Avai lable Fish Oil otc, takes daily 2019 active Not Available Not Available Not Avai lable iron 65mg daily 01/05 completed Not Available Not Available Not Available calcium citrate 600mg 2 tabs daily 2019 active Not Available Not Available Not Avai lable Daily Vitamin otc, takes daily 2019 active Not Available Not Available Not Avai lable sodium chloride 1,000 mg soluble tablet TAKE 1 & 1/2 (ONE & ONE-HALF ) TABLETS BY MOUTH TWICE DAILY FOR 1 MONTH active Not Available Not Available No t Available Probiotic otc, takes daily 2019 active Not Available Not Available Not Avai lable Vitamin D2 65025 iu every 2 weeks 08/22 completed Not Available Not Available Not Available Narcan 4 mg/actuat ion nasal spray prn 12/26 completed Not Available Not Available Not Available Fluzone High-Dose Quad 2019- (PF) 240 mcg/0.7 mL IM syringe PHARMACY ADMINIST ERED 04/26 completed Not Available Not Available Not Available Paxlovid 300 mg (150 mg x 2)-100 mg tablets in a dose pack 300 mg nirmatre lvir (two 150 mg tablets) with 100 mg ritonavi r (one 100 mg tablet) with all three tablets taken together orally twice daily for 5 days. active Not Available Not Available No t Available Vitals Date Recorded Body height Body temperature Body mass index (BMI) Body weight Heart rate Oxygen saturation Oxygen saturation in Arterial blood by Pulse oximetry Systolic blood pressure Diastolic blood pressure Provider Name and Address Organization Details Last Updated DateTime 3 144.78 cm 97.3 [degF] 26.4 kg/m2 60020.2 7 g 72 /min 98 % 98 % 134 mm[Hg] 70 mm[Hg] Namrata Christine RN [facility] 3 14:34:22 Date Recorded Systolic blood pressure Diastolic blood pressure Provider Name and Address Organization Details Last Updated DateTime 11/18/2022 120 mm[Hg] 60 mm[Hg] NATACHA Kwong [address], [address], [place], [address], [facility] 11/18/2022 15:00:11 Date Recorded Body height Body temperature Body mass index (BMI) Body weight Respiratory rate Oxygen saturation Oxygen saturation in Arterial blood by Pulse oximetry Heart rate Systolic blood pressure Diastolic blood pressure Provider Name and Address Organization Details Last Updated DateTime 3 144.78 cm 97.9 [degF] 24.9 kg/m2 01854.1 2 g 16 /min 96 % 96 % 73 /min 130 mm[Hg] 72 mm[Hg] CLINTON Couch [facility] 3 14:31:55 Date Recorded Body height Body mass index (BMI) Body weight Body temperature Heart rate Oxygen saturation Oxygen saturation in Arterial blood by Pulse oximetry Systolic blood pressure Diastolic blood pressure Provider Name and Address Organization Details Last Updated DateTime 3 144.78 cm 26.4 kg/m2 28248.2 7 g 98 [degF] 72 /min 98 % 98 % 122 mm[Hg] 58 mm[Hg] Namrata Christine RN [facility] 3 14:39:45 Date Recorded Body mass index (BMI) Provider Name and Address Organization Details Last Updated DateTime 02/18/2023 26 kg/m2 NATACHA Kwong [address], [address], [place], [address], [facility] 03/02/2023 17:26:21 Date Recorded Body height Body weight Body temperature Heart rate Oxygen saturation Oxygen saturation in Arterial blood by Pulse oximetry Systolic blood pressure Diastolic blood pressure Provider Name and Address Organization Details Last Updated DateTime 3 144.78 cm 65258.0 8 g 97.8 [degF] 70 /min 99 % 99 % 122 mm[Hg] 60 mm[Hg] Namrata Christine RN [facility] [employer] [facility] 3 14:38:00 Date Recorded Body mass index (BMI) Provider Name and Address Organization Details Last Updated DateTime 04/22/2023 24.7 kg/m2 NATACHA Kwong [address] [facility], [facility] [address], [place], [address], [facility] [employer] [facility] 05/04/2023 12:45:22 Date Recorded Body height Body weight Body temperature Heart rate Oxygen saturation Oxygen saturation in Arterial blood by Pulse oximetry Systolic blood pressure Diastolic blood pressure Provider Name and Address Organization Details Last Updated DateTime 3 144.78 cm 71963.5 3 g 97.2 [degF] 71 /min 98 % 98 % 116 mm[Hg] 68 mm[Hg] Namrata Christine RN [facility] [employer] [facility] 3 15:01:06 Social History Question Answer Notes LastModified by Organizat ion Details LastModified Time Tobacco Smoking Status Never Smoker Not Available [employer] 08/07/2022 02:32:08 Do You Have An Advance Directive? Yes MIGRATION.63193 47152 Information not available 08/07/2022 Do You Wear A Helmet When Biking? No MIGRATION.82250 43156 Information not available 08/07/2022 Are You Blind Or Do You Have Difficulty Seeing? Yes Wears Glasses MIGRATION.94390 40234 Information not available 08/07/2022 What Is Your Level Of Caffeine Consumption? Moderate MIGRATION.59721 23707 Information not available 08/07/2022 How Much Tobacco Do You Chew? None MIGRATION.74984 47856 Information not available 08/07/2022 In The 14 Days Before Symptom Onset, Have You Had Close Contact With A Laboratory-confir med COVID-19 While That Case Was Ill? No MIGRATION.36733 74472 Information not available 08/07/2022 In The 14 Days Before Symptom Onset, Have You Had Close Contact With A Person Who Is Under Investigation For COVID-19 While That Person Was Ill? No MIGRATION.71648 86703 Information not available 08/07/2022 Are You Deaf Or Do You Have Serious Difficulty Hearing? No MIGRATION.97357 82489 Information not available 08/07/2022 What Type Of Diet Are You Following? REGULAR MIGRATION.24604 81631 Information not available 08/07/2022 Which Illicit Or Recreational Drugs Have You Used? None MIGRATION.23287 66459 Information not available 08/07/2022 Have There Been Any Changes To Your Family Or Social Situation? No MIGRATION.26713 15727 Information not available 08/07/2022 Are There Any Guns Present In Your Home? No MIGRATION.03582 15655 Information not available 08/07/2022 Do You Use Insect Repellent Routinely? Yes MIGRATION.86797 02591 Information not available 08/07/2022 What Was The Date Of Your Most Recent Tobacco Screening? 08/22/2020 MIGRATION.05411 67771 Information not available 08/07/2022 Have You Ever Been Counseled For Unhealthy Alcohol Use? No MIGRATION.44888 86578 Information not available 08/07/2022 Do You Have Any Pets? No MIGRATION.34258 45360 Information not available 08/07/2022 What Is Your Relationship Status? MIGRATION.25331 41312 Information not available 08/07/2022 Do You Use Your Seat Belt Or Car Seat Routinely? Yes MIGRATION.83305 30335 Information not available 08/07/2022 Do You Have Smoke And Carbon Monoxide Detectors In Your Home? Yes MIGRATION.79509 35658 Information not available 08/07/2022 Are You Passively Exposed To Smoke? No MIGRATION.31422 70448 Information not available 08/07/2022 Are There Any Smokers In Your House? No MIGRATION.10755 67301 Information not available 08/07/2022 How Much Tobacco Do You Smoke? No MIGRATION.12096 87659 Information not available 08/07/2022 Do You Use Sunscreen Routinely? No MIGRATION.89407 80210 Information not available 08/07/2022 Has Tobacco Cessation Counseling Been Provided? No MIGRATION.07962 58985 Information not available 08/07/2022 How Many Years Have You Smoked Tobacco? 0 MIGRATION.65562 21253 Information not available 08/07/2022 Have You Recently Traveled Abroad? No MIGRATION.15348 17713 Information not available 08/07/2022 Do You Have Difficulty Walking Or Climbing Stairs? No MIGRATION.27102 67690 Information not available 08/07/2022 Do You Have Any Dietary Restrictions? No MIGRATION.84331 07252 Information not available 08/07/2022 Sex: Unknown Functional Status Question Answer Note LastModified by Organizat ion Details LastModified Time Do you or have you ever used smokeless tobacco? Never used smokeless tobacco MIGRATION.447864 8428 Information not available 08/07/2022 Are you currently employed? No Information not available 09/02/2022 Do you have transportation difficulties? No MIGRATION.387772 3691 Information not available 08/07/2022 Are you able to care for yourself? Yes MIGRATION.732333 9541 Information not available 08/07/2022 Do you have difficulty dressing or bathing? No MIGRATION.485195 2215 Information not available 08/07/2022 Do you or have you ever used e-cigarettes or vape? Never used electronic cigarettes MIGRATION.415735 7874 Information not available 08/07/2022 What is your exercise level? None MIGRATION.671194 8533 Information not available 08/07/2022 Do you use any illicit or recreational drugs? No MIGRATION.478003 6761 Information not available 08/07/2022 Do you or have you ever used any other forms of tobacco or nicotine? No MIGRATION.980129 0612 Information not available 08/07/2022 What is your level of alcohol consumption? Occasional MIGRATION.703400 9480 Information not available 08/07/2022 Are you able to walk? YESWOREST MIGRATION.862982 8788 Information not available 08/07/2022 Do you have difficulty doing errands alone? 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 OH41800-3 MIGRATION.41283279 26 Information not available 08/07/2022 Do you have difficulty concentrating, remembering or making decisions? No MIGRATION.72706555 26 Information not available 08/07/2022 Family History Relationship Description Onset Age of this Age Resolved Age Notes LastModified by Organization Details LastModified Time Mother Malignant tumor of breast MIGRATION.086 [id number] Not available 08/07/2022 02:44:54 Mother Malignant tumor of kidney MIGRATION.256 [id number] Not available 08/07/2022 02:44:54 Mother History of heart disorder MIGRATION.280 [id number] Not available 08/07/2022 02:44:54 Father Arthritis MIGRATION.177 [id number] Not available 08/07/2022 02:44:54 Father Myocardial infarction MIGRATION.927 [id number] Not available 08/07/2022 02:44:54 Medical History Condition Response NERVE DISEASE N BLINDNESS N RHEUMATIC FEVER N KIDNEY STONES N BLADDER PROBLEMS N OTHER # 1 N POLIO N LUNG DISEASE/DISORDER N COPD N RADIATION / CHEMOTHERAPY N Other # 2 N BLOOD DISEASES N SURGERY N EAR OR HEARING PROBLEMS N MUMPS N BOWEL PROBLEMS N DEPRESSION (INCLUDING POST ) N STROKE/TIA N ULCERS N BENIGN PROSTATIC HYPERPLASIA N MEASLES N MYOCARDIAL INFARCTION N OBESITY N GERD/NAUSEA N ANEURYSM N URINARY/BLADDER/KIDNEY PROBLEMS N CORONARY ARTERY DISEASE (CAD) N INPATIENT PSYCH CARE N ADDICTION CONCERNS N ENDOMETRIOSIS N Impotence N USE OF BLOOD THINNERS N SKIN PROBLEMS N GASTROINTESTINAL DISORDER N PERIPHERAL VASCULAR DISEASE N MUSCLE,JOINT OR BONE PROBLEMS N GASTROINTESTINAL BLEEDING N BLOOD CLOTS N ASTHMA N CATARACTS N ERECTILE DYSFUNCTION N VARICOSITIES N GI PROBLEMS N Low Testosterone N INFERTILITY N AIDS/HIV N LIVER DISEASE N MALE HYPOGONADISM N HYPERTENSION Y Deficiency N ANXIETY DISORDER N BLOOD TRANSFUSION N ANEMIA/BLOOD DISORDER N CHRONIC EAR INFECTIONS N BRONCHITIS N TUBERCULOSIS N GLAUCOMA N FOOT PROBLEM N DIVERTICULITIS N SLEEP APNEA N CHICKENPOX N INFECTIOUS DISEASE N HEART ARRHYTHMIA N PROSTATE N INSOMNIA N HIGH CHOLESTEROL / HYPERLIPIDEMIA Y HYPERTHYROIDISM N EYE PROBLEMS Y NEUROLOGICAL PROBLEMS N EDEMA N CHRONIC PAIN SYNDROME N HYPOTHYROIDISM N CAROTID BLOCKAGE N CONSTIPATION N BACK / NECK PROBLEMS Y HAVE YOU BEEN HOSPITALIZED OR SEEN IN [place] [facility] IN THE PAST YEAR ? N ATHEROSCLEROSIS N BREAST PROBLEMS N DIALYSIS N ECZEMA N OSTEOPOROSIS N ARTHRITIS N NO SIGNIFICANT PAST MEDICAL HISTORY N APPENDICITIS N DIABETES, TYPE N BAD TEETH N ENT N HEARTBURN / REFLUX N AUTISM SPECTRUM DISORDER (ASD) N HEPATITIS / LIVER DISEASE N PULMONARY DISEASE N GOUT N SLEEP DISORDER N ALZHEIMER'S DISEASE N Brain Problems N HERPES N DEMENTIA N HEADACHES/MIGRAINES N SEIZURES/EPILEPSY N VASCULAR DISEASE N PACEMAKER N Blood Disorder N DIZZINESS N HEART DISEASE/HEART PROBLEMS N KIDNEY DISEASE N MULTIPLE SCLEROSIS N CARDIAC ARRHYTHMIA N CANCER: SPECIFY N ANESTHESIA COMPLICATIONS N ATRIAL FIBRILLATION N Gall Stones N PULMONARY EMBOLISM N AUTOIMMUNE DISEASE N Gynecological History Statement/Question Response Date of Last Pap 06/09/2017 Date of Last Mammogram 09/11/2021 Date of Last Colonoscopy 06/09/2018 Obstetrics History GPAL:G 2 P 0 0 0 2 Type Value Living 2 Total 2 Immunizations Vaccine Type Date Status Note Provider Nam e and Address Organization Details Recorded Time COVID-19, mRNA, LNP-S, PF, 30 mcg/0.3 mL dose 1 completed Not Available [facility] 08/07/2022 02:57:53 Influenza, high-dose, quadrivalent, PF 0 completed Not Available [facility] 08/07/2022 02:57:53 Td (adult) 6 completed Not Available [facility] 08/07/2022 02:57:53 pneumococcal, unspecified formulation 6 completed Not Available [facility] 08/07/2022 02:57:53 zoster, unspecified formulation 3 completed Not Available [facility] 08/07/2022 02:57:53 Past Encounters Encounter ID Performer Location Encounter Start Date Encounter Closed Date Diagnosis/Indication Diagnosis SNOMED-CT Code Diagnosis ICD10 Code Diagnosis Note [id number] NATACHA Kwong [facility] [address] [place] [address] 08/22/2020 00:00:00 09/02/2020 16:19:32 [id number] NATACHA Kwong [facility] [address] [place] [address] 12/26/2020 00:00:00 12/31/2020 14:26:24 [id number] NATACHA Kwong [facility] [address] [place] [address] 04/30/2021 00:00:00 05/08/2021 22:29:46 [id number] NATACHA Kwong [facility] [address] [place] [address] 09/03/2021 00:00:00 09/04/2021 09:25:15 [id number] Hudson Montoya MD [facility] [address] [place] [address] 12/31/2021 00:00:00 01/05/2022 16:13:14 [id number] NATACHA Kwong [facility] [address] [place] [address] 02/12/2022 00:00:00 03/08/2022 13:43:10 [id number] NATACHA Kwong [facility] [address] [place] [address] 05/07/2022 00:00:00 05/07/2022 19:16:42 [id number] NATACHA Kwong [facility] [address] [place] [address] 09/03/2022 14:27:48 09/03/2022 15:19:16 Benign essential hypertension 7789294 I10 stable on medication amlodipine 2.5mg daily, lisinopril hctz 20/25mg daily. Hyperlipidemia 00504553 E78.5 stable on atorvastat in 20mg daily. Hypothyroidism 66834473 E03.9 stable on synthroid 75mcg dailly. due for labs in november Osteopenia 954619902 M85 .80 taking vit D supplement daily. Hiatal her audra with gastroesophageal reflux 698625272 K21.9 stable on omeprazole 40mg daily. Systemic sclerosis 18751 008 M34.9 pt is seeing rheumatolo gy and now on plaquinil daily. Blood gluc ose outside reference range 435699636 R73.09 stable a1c. following. Long-term drug therapy 911831713 Z79.899 next labs due in november. [id number] NATACHA Kwong [facility] [address] [place] [address] 11/18/2022 14:20:46 11/18/2022 15:02:27 Chronic hyponatremia 07560163 E87.1 improved. lab ordered for f/u Hypokalemia 22457890 E87 .6 repeat labs is ordered already. improved. Celiac disease 640904976 K90.0 Diet to improve with gluten free choices. Benign ess ential hypertension 8554369 I10 now on amlodipine and just lisinopril . hctz discontinu ed with hyponatrem ia [id number] NATACHA Kwong [facility] [address] [place] [address] 12/24/2022 14:28:07 12/24/2022 15:29:04 Benign essential hypertension 2089250 I10 stable on medication amlodipine 2.5mg daily, lisinopril hctz 20/25mg daily. Hyperlipidemia 46350950 E78.5 stable on atorvastat in 20mg daily. labs are utd. Hypothyroidism 61732472 E03.9 stable on synthroid 75mcg dailly. up to date labs Osteopenia 502941315 M85 .80 taking vit D supplement daily. Anemia 831692661 D64.9 stable following CBC and iron studies Blood gluc ose outside reference range 566300646 R73.09 stable a1c. following. due for labs in january Hyponatremia 57164188 E8 7.1 due for repeat bmp after hyponatrem ia related to medication . [id number] NATACHA Kwong [facility] [address] [place] [address] 02/18/2023 14:32:33 02/18/2023 15:22:13 Hiatal hernia with gastroesophageal reflux 495253740 K21.15 September 2021 and UGI series was completed and showed small hiatal hernia with large amount of reflux. She was started on PPI therapy but somehow stopped in the last year. She is isn't sure why. She needs to restart omeprazole 40mg daily and refer for EGD considerin g her symptoms and that she is an has not been on PPI for unknown time frame. [id number] NATACHA Kwong [facility] [address] [place] [address] 04/22/2023 14:55:47 04/22/2023 15:59:00 Benign essential hypertension 0617121 I10 stable on medication amlodipine 2.5mg daily, lisinopril hctz 20/25mg daily. Hyperlipidemia 21641299 E78.5 stable on atorvastat in 20mg daily. labs are utd. Hypothyroidism 51848381 E03.9 stable on synthroid 75mcg dailly. up to date labs Osteopenia 168208809 M85 .80 taking vit D supplement daily. Anemia 555479150 D64.9 stable following CBC and iron studies Blood gluc ose outside reference range 406160084 R73.09 stable a1c. following. Hyponatremia 07814007 E8 7.1 due for repeat bmp after hyponatrem ia related to medication but with changes to diuretic hyponatrem ia is persisting . pt will be consulting with her 's nephrologi st in near future. refer for CT chest w/o contrast to evaluate for any underlying source in lungs Long-term drug therapy 027988742 Z79.899 Health Concerns Section Related Observation LastModified by Organization Detai ls LastModified Time None Recorded Concern Status LastModified by Organization Details LastModified Time None Recorded Advance Directives Directive Y: Payers Encounter Date Sequence Insurance Name Policy Number Policy Resendiz Covered Member ID Resendiz Member ID Guarantor Name 09/03/2022 1 [place] Sandra A Dudak [id number] Sandra A Dudak 09/03/2022 2 [facility] [place] [id number] Sandra A Dudak [id number] Sandra A Dudak 11/18/2022 1 [place] Sandra A Dudak [id number] Sandra A Dudak 11/18/2022 2 [facility] (PPO) [id number] Sandra A Dudak [id number] Sandra A Dudak 12/24/2022 1 [place] Sandra A Dudak [id number] Sandra A Dudak 12/24/2022 2 [facility] [id number] Sandra A Dudak [id number] Sandra Coleman Dudak 02/18/2023 1 [place] Sandra A Dudak [id number] Sandra A Dudak 02/18/2023 2 [facility] ([facility] [id number] Sandra A Dudak [id number] Sandra Jared Dudak 04/22/2023 1 [place] Sandra A Dudak [id number] Sandra A Dudak 04/22/2023 2 [facility] ([facility]) [id number] Sandra A Dudak [id number] Sandra Jared Dudak Notes Date Note Type Note Provider Name and Address Organization Details Recorded Time 09/04/19 23 text/htm l HyperlipidemiaReported bypatient.Duration:chronic Control:usually well controlled; improving; at goal Compliance:compliant; compliant with diet; exercises Complications:no coronary artery disease; no peripheral artery disease; no cardiovascular diseaseHypertensionReported bypatient.Onset/Timing:better Alleviating Factors:medication Associated Symptoms:no shortness of breath; no fatigue; no palpitations; no decline in exercise capacity; no snoringHypothyroidismReported bypatient.Quality:improving Onset/Timing:better Context/Risk:normal thyroid levels; no history of head or neck radiation during childhood; no history of thyroid disease; no history of hypothyroidism; no history of hyperthyroidism; no excess iron exposure;history of hypothyroidism Exercisegets exercise Associated Symptoms:no cold intolerance; no heat intolerance; no weight loss; no weight gain; no double vision; no dry eyes; no hoarseness; no difficulty swallowing; no neck masses; no deepening of the voice; no fast heart rate; no increased blood pressure; no palpitations; no chest pain; no chest tightess or pressure; no constipation; no diarrhea; no vomiting; no decreased appetite; no loose stools; no irregular menstrual periods; no excessive sweating; no joint pain; no numbness; no tingling of the hands or feet; no dry skin; no tremor; no nervousness; no anxiety; no depression; no fatigue; no sleep difficulties; no skin changes; no hair changes NATACHA Kwong [address], [facility] [address], [place], [address], [employer] [facility] [email or web address] [facility] 09/03/2022 22:15:17 11/19/19 text/htm l Generic HPI TemplateReported bypatient.Notes:Pt is here for an e/r f/u from 11/05/22 for weakness. They did tests and found her sodium levels were low. Records are in the room w/her. They stopped the lisinopril w/HCTZ and put her on just lisinopril. Today she is still weak. NATACHA Kwong [address], [facility] [address], [place], [address], [employer] [facility] [email or web address] [facility] 12/06/2022 23:27:41 12/25/19 text/htm l HyperlipidemiaReported bypatient.Duration:chronic Control:usually well controlled; improving; at goal Compliance:compliant; compliant with diet; exercises Complications:no coronary artery disease; no peripheral artery disease; no cardiovascular diseaseHypertensionReported bypatient.Onset/Timing:better Alleviating Factors:medication Associated Symptoms:no shortness of breath; no fatigue; no palpitations; no decline in exercise capacity; no snoringHypothyroidismReported bypatient.Quality:improving Onset/Timing:better Context/Risk:normal thyroid levels; no history of head or neck radiation during childhood; no history of thyroid disease; no history of hypothyroidism; no history of hyperthyroidism; no excess iron exposure;history of hypothyroidism Exercisegets exercise Associated Symptoms:no cold intolerance; no heat intolerance; no weight loss; no weight gain; no double vision; no dry eyes; no hoarseness; no difficulty swallowing; no neck masses; no deepening of the voice; no fast heart rate; no increased blood pressure; no palpitations; no chest pain; no chest tightess or pressure; no constipation; no diarrhea; no vomiting; no decreased appetite; no loose stools; no irregular menstrual periods; no excessive sweating; no joint pain; no numbness; no tingling of the hands or feet; no dry skin; no tremor; no nervousness; no anxiety; no depression; no fatigue; no sleep difficulties; no skin changes; no hair changes NATACHA Kwong [address] [place], [address], [employer] 01/05/2023 22:43:58 02/19/20 23 text/htm l Reflux/GERDReported bypatient.Quality:burning;stabbi ng Severity:worsening Onset/Timing:gradual onset; occasional; occurs immediately after meals Context:non-smoker; no drug/alcohol abuse; no drug alcohol withdrawal; not related to food/drink;related to any meal Aggravating Factors:worsened by food Associated Symptoms:no frequent coughing; no feeling of fullness/mass in throat; no hoarseness; no food getting stuck; no belching/burping; no vomiting; not vomiting blood; no regurgitation; no shortness of breath; no chest pain; no difficulty swallowing; no pain when swallowing; no bad taste; no weight loss; no black/tarry stools; no fatigue; no throat pain;regurgitation;heartburn;bad taste;decreased appetite NATACHA Kwong [address], [place], [address], [employer] 03/02/2023 17:37:13 04/22/20 23 text/htm l HyperlipidemiaReported bypatient.Duration:chronic Control:usually well controlled; improving; at goal Compliance:compliant; compliant with diet; exercises Complications:no coronary artery disease; no peripheral artery disease; no cardiovascular diseaseHypertensionReported bypatient.Onset/Timing:better Alleviating Factors:medication Associated Symptoms:no shortness of breath; no fatigue; no palpitations; no decline in exercise capacity; no snoringHypothyroidismReported bypatient.Quality:improving Onset/Timing:better Context/Risk:normal thyroid levels; no history of head or neck radiation during childhood; no history of thyroid disease; no history of hypothyroidism; no history of hyperthyroidism; no excess iron exposure;history of hypothyroidism Exercisegets exercise Associated Symptoms:no cold intolerance; no heat intolerance; no weight loss; no weight gain; no double vision; no dry eyes; no hoarseness; no difficulty swallowing; no neck masses; no deepening of the voice; no fast heart rate; no increased blood pressure; no palpitations; no chest pain; no chest tightess or pressure; no constipation; no diarrhea; no vomiting; no decreased appetite; no loose stools; no irregular menstrual periods; no excessive sweating; no joint pain; no numbness; no tingling of the hands or feet; no dry skin; no tremor; no nervousness; no anxiety; no depression; no fatigue; no sleep difficulties; no skin changes; no hair changes NATACHA Kwong [address], [address], [facility] 05/04/2023 13:56:58 OBGyn Episode No OBEpisode recorded.
--- OUTSIDE RECORDS SUMMARY | 2024-11-08 13:18 | XMS_ITS | Referral Summary ---
Author Organization [facility] Address [address] [facility] [place] [address] Care Team Providers Care Clerical Transcriber Name Role Phone Naida Kent Primary Care Pr ovider Paresh Olivera [facility] Unavailable [phone] Chris Gaviria MD Unavailable Encounters Date Type Department Care Team Description 09/23/2024 10:45 AM CDT - 09/23/2024 11:59 PM CDT Hospital Encounter [facility] [address] [place] [id number] Chris Gaviria MD Radiculopathy, lumbosacral region; 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 claudication Discharge Disposition: Discharge to home or self care 09/06/2024 11:30 AM CDT - 09/06/2024 11:59 PM CDT Hospital Encounter [facility] [address] [place] [id number] Paresh Olivera NP Radiculopathy, lumbosacral region (Primary Dx); Sacroiliitis; 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 claudication; Postlaminectomy syndrome, lumbar Discharge Disposition: Discharge to home or self care from Last 3 Months Allergies Active Allergy Reactions Criticality Noted Date Comments Morphine Nausea only Low Medications ergocalciferol (VITAMIN D) 50,000 unit capsule Take 1 capsule (50,000 Units total) by mouth once a week Active ZINC ORAL Take 25 mg by mouth daily Active omega-3 fatty acids 500 mg capsule Take 2 capsules by mouth daily Active atorvastatin (LIPITOR) 20 mg tabletIndications:M ild atherosclerosis of both carotid arteries Take 1 tablet (20 mg total) by mouth daily 90 tablet 3 0 Active levothyroxine (SYNTHROID) 75 mcg tablet Take 1 tablet (75 mcg total) by mouth portable track line marker before breakfast Active ferrous sulfate 325 mg (65 mg iron) capsule, extended release Take by mouth daily Active lisinopriL (PRINIVIL,ZESTRIL) 20 mg tablet Take 1 tablet (20 mg total) by mouth every morning Active omeprazole (PriLOSEC) 40 mg capsule Take 1 capsule (40 mg total) by mouth 3 (three) times a week Active alendronate (FOSAMAX) 70 mg tablet Take 1 tablet (70 mg total) by mouth once a week 3 Active hydroxychloroquine (PLAQUENIL) 200 mg tablet Take 1 tablet (200 mg total) by mouth daily [address] (CYMBALTA) 30 mg capsule Take 1 capsule by mouth once daily 90 capsule 2 3 Active carvediloL (COREG) 12.5 mg tablet Take 1 tablet (12.5 mg total) by mouth 2 (two) times a day 4 Active amLODIPine (NORVASC) 5 mg tablet Take 1 tablet (5 mg total) by mouth daily 5 Active Active Problems Problem Noted Date Diagnosed Date Spinal stenosis of lumbar re gion without neurogenic claudication 09/02/2023 Sacral insufficiency fracture 04/18/2023 Lumbar radiculopathy 04/18/2023 Lumbosacral radiculopathy 04/18/2023 Sacroiliitis 03/25/2023 Trigger point with back pain 03/25/2023 Postlaminectomy syndrome, lumbar 03/25/2023 Radiculopathy, lumbosacral region 03/25/2023 Thyroid activity decreased 05/15/2021 Bilateral carpal tunnel syndrome 12/24/2019 Mild atherosclerosis of both carotid arteries Heart murmur 05/26/2019 Essential hypertension 05/26/2019 Hypercholesteremia 05/26/2019 Resolved Problems Problem Noted Date Diagnosed Date Resolved Date Rheumatoid arthritis involvi ng both hands (CMS/HCC) 05/12/2020 05/15/2021 Right carotid bruit 05/26/2019 05/15/20 21 Pain of foot 01/04/2014 05/15/2021 Social History Tobacco Use Types Packs/Day Years Used Date Smoking Tobacco: Never Smokeless Tobacco: Never Tobacco Cessation:Counseling Given: Not Answered Alcohol Use Standard Drinks/Week Comments No 0 (1 standard drink = 0.6 oz pur e alcohol) AUDIT-C Answer Date Recorded Q1: How often do you have a drink containing alc ohol? Monthly or less 05/11/2021 Average Number of Drinks Not on file 021 Frequency of Binge Drinking Not on file 08/2020 Comments No Sex and Gender Information Value Date Recorded Sex Assigned at Not on file Legal Sex Female 8:14 PM [employer] Gender Identity Not on file Sexual Orientation Not on file Last Filed Vital Signs Vital Sign Reading Time Taken Comments Blood Pressure 155/69 09/23/2024 12:15 PM CDT Pulse 57 09/23/2024 12:15 PM CDT Temperature 36.6 C (97.8 F) 09/23/2024 11:05 AM CDT Respiratory Rate 16 09/23/2024 12:15 PM CDT Oxygen Saturation 99% 09/23/2024 12:15 PM CDT Inhaled Oxygen Concentration - - Weight 54.2 kg (119 lb 8 oz) 03/25/2023 12:18 PM CDT Height 149.9 cm (4' 11) 03/25/2023 12:18 PM CDT Body Mass Index 24.14 03/25/2023 12:18 PM CDT Plan of Treatment Not on file Procedures Procedure Name Priority Date/Time Associated Diagnosis Comments PAIN MGMT IMAGING LUMBAR/CAUDAL EPIDURAL STEROID INJ Schedule Routine, Read Routine (OP Routine) 09/23/2024 12:15 PM CDT Radiculopathy, lumbosacral region 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 claudication from Last 3 Months Results * Imaging Lumbar/Caudal Epidural Steroid INJ ([id number]) (09/23/2024 12:15 PM CDT) Narrative RAD_PACS[facility] - 09/23/2024 12:16 PM CDT The images from this study are not interpreted by Radiology. Please refer to the physician's procedure / OR operative note. Paresh Olivera NP IMG PAIN MGMT PROCEDURES F inal Result RAD_PACS_[facility] from Last 3 Months Insurance [facility] MEDICARE [facility] MEDICARE SUPPLEMENT MEDICARE [facility] MEDICARE SUPPLEMENT Care Teams Clerical Transcriber Relationship Specialty Start Date End Date Naida Kent PA PCP - General 07/16/21 [place] [id number] [address] [facility] [address] [place] [address] Nurse Practitioner Nurse Practitioner 09/06/24 [place] [id number] [address] [facility] [address] [place] [address] Consulting Physician Pain Management 09/06/24
--- OUTSIDE RECORDS SUMMARY | 2024-11-08 13:18 | XMS_ITS | Data Portability ---
Author Organization [facility] Shraddha Roberto Address [address] [place] [address] Care Team Providers Care Bill Board Poster Name Role Phone EVAN MINAYA Primary Care Provider Unavailab le Assessment No assessment recorded. Plan of Treatment Reminders Order Date Submit Date Provider Last Modified By Organization Details Last Modified Time Details Appointments ANY 15 2024 02:00P M NATACHA Kwong Not available Not available Not available Lab lipid panel, serum 2024 025 [email or web address] [facility], [address], [place], [address], 10/22/2024 15:20:37 HbA1c (hemoglob in A1c), blood 2024 025 [email or web address] [facility], [address], [place], [address], 10/22/2024 15:20:37 hepatic function panel, serum 2024 025 [email or web address] [facility], [address], [place], [address], 10/22/2024 15:20:37 CBC w/ auto diff 2024 025 [email or web address] [facility], [address], [place], [address], 10/22/2024 15:20:37 BMP, serum or plasma 2024 025 [email or web address] [facility], [address], [address], [place], [address], 10/22/2024 15:20:37 TSH + free T4, serum 2024 025 [email or web address] [facility], [address], [address], [place], [address], 10/22/2024 15:20:37 vitamin D, 25-hydrox y, total, serum 2023 025 [email or web address] [facility], [address], [address], [place], [address], 10/25/2024 11:49:28 lipid panel, serum 2023 025 [email or web address] [facility], [address], [address], [place], [address], 10/25/2024 11:49:44 BMP, serum or plasma 2023 [email or web address] [facility], [address], [address], [place], [address], 10/25/2024 11:49:10 CBC w/ auto diff 2023 025 [email or web address] [facility], [address], [address], [place], [address], 10/25/2024 11:49:16 hepatic function panel, serum 2023 025 [facility], [address], [address], [place], [address], 10/25/2024 11:49:22 HbA1c (hemoglob in A1c), blood 2023 025 [email or web address] [facility], [address], [address] [place], [place], [address], 10/25/2024 11:49:49 HbA1c (hemoglob in A1c), blood 2023 025 [email or web address] [facility], [address], [address], [place], [address], 08/26/2024 10:28:44 BMP, serum or plasma 2023 025 [facility], [address], [address] [place], [place], [address], 08/26/2024 10:29:08 TSH + free T4, serum 2023 025 [facility], [address], [address] [place], [place], [address], 10/25/2024 11:49:36 TSH + free T4, serum 2023 025 [email or web address], [address], [address] [place], [place], [address], 08/26/2024 10:29:02 vitamin D, 25-hydrox y, total, serum 2023 [facility] [address], [address], [place], [address], 04/19/2024 16:34:43 lipid panel, serum 2023 024 [facility] [employer] [facility], [address], [address] [place], [place], [address], 04/19/2024 16:33:27 BMP, serum or plasma 2023 024 [facility] [employer] [facility], [address], [place], [address], 04/19/2024 16:33:42 CBC w/ auto diff 2023 024 [employer] [employer] [facility], [address], [place] [place], [place], [address], 04/19/2024 16:34:06 hepatic function panel, serum 2023 024 [facility], [address], [address] [place], [place], [address], 04/19/2024 16:35:04 vitamin B12 + folate, serum or blood 2023 024 [facility], [address], [address] [place], [place], [address], 04/19/2024 16:34:33 HbA1c (hemoglob in A1c), blood 2023 [facility], [address], [address] [place], [place], [address], 04/19/2024 16:33:56 TSH + free T4, serum 2023 [facility], [address], [place], [address], 04/19/2024 16:35:15 T3, free, serum or plasma 2023 024 [facility], [address], [address] [place], [place], [address], 04/19/2024 16:34:11 Referral None recorded. Procedures lexiscan cardiolit e stress test (PROC) 2023 024 [facility] (Cardiology & Em[facility]), [address] [facility] [address], [place], [address], 03/05/2024 11:32:47 Surgeries None recorded. Imaging CT, abdomen + pelvis, w/ contrast [address] (Imaging), [address], [place], [address], 11/05/2024 14:00:40 US, echocardi ogram, transthor acic, complete, w/ color flow 2023 [facility] (Cardiology & [facility]), [address], [place], [address], 03/04/2024 15:50:56 Medication Orders omeprazol e 40 mg capsule,d elayed release 2024 025 [facility], [address] [place], [address], 10/22/2024 15:24:02 amlodipin e 5 mg tablet [email or web address] [place] [address] Pharmacy [address], [address] [place], [address], 10/22/2024 15:28:05 famotidin e 40 mg tablet 2023 024 [facility], [address] [place], [address], 04/27/2024 15:28:22 duloxetin e 30 mg capsule,d elayed release 2023 024 [facility], [address] [place], [address], 04/27/2024 15:28:22 famotidin e 40 mg tablet 2023 024 [email or web address], [address] [place] [address], [address], 04/27/2024 14:54:33 Patient TargetsNo targets recorded. Patient InstructionsNo instructions recorded. Reason for Referral None Reported. Results Created Date Observation Date Name Description Value Unit Range Abnormal Flag Note LastModifiedBy Organization Detail LastModifiedTime 03/04/20 24 02/24/2024 US, echoc ardio gram, trans thora cic, compl ete, w/ color flow No observ ation record ed. [email or web address] [facility] (Cardiology & Emg) [address] [facility], [place], [address], 03/15/2024 14:17:01 03/04/20 24 03/04/2024 khris tesha call olite stres s test (PROC ) No observ ation record ed. [address] (Cardiology & Emg) [address] [facility], [place], [address], 03/15/2024 14:16:45 03/15/20 24 03/13/2024 MAMMO , scree benjamín, digit al, bilat eral No observ ation record ed. [id number] [address], [place], [address], 03/15/2024 14:16:46 Result Notes None recorded. Problems Name Problem SNOMED Code Status Onset Date Resolution Date Notes Provider Name and Address Organization Details Recorded Time Long-term drug therapy Active 2023 NATACHA Kwong Attn: Westley g,[address] [facility], [place], [address], [facility] 4 22:21:22 Osteoporosi s 72238274 Active 2023 NATACHA Kwong Attn: Davisin g,[address] [facility], [place], [address], [facility] 4 22:21:33 Blood glucose outside reference range 969863473 Active 2023 NATACHA Kwong Attn: Davisin g,[address] [facility], [place], [address], [facility] 4 22:21:34 Nausea 854884460 Active 2023 NATACHA Kwong Attn: Westley g,[address] [facility], [place], [address], [facility] - [facility] 4 22:21:43 Hypothyroid ism 55491300 Active 2023 NATACHA Kwong Attn: Accountin g,[address] [facility], [place], [address], [place] [facility] 4 22:22:00 Mixed hyperlipide nevin 485528120 Active 2023 NATACHA Kwong Attn: Accountin g,[address] [facility], [place], [address], [place] [facility] 4 22:22:33 Dyspnea on exertion 34061314 Active 2023 NATACHA Kwong Attn: Accountin g,[address] [facility], [place], [address], [place] [facility] 4 22:22:35 Rheumatoid arthritis 31532961 Active 2023 NATACHA Kwong Attn: Accountin g,[address] [facility], [place], [address], [place] [facility] 4 22:22:36 Benign essential hypertensio n 0242951 Active 2023 NATACHA Kwong Attn: Accountin g,[address] [facility], [place], [address], [place] [facility] 4 22:22:37 Echocardiog yefri abnormal 530052298 Active 2023 NATACHA Kwong Attn: Accountin g,[address] [facility], [place], [address], [place] [facility] 4 14:36:37 Depressive disorder 20180263 Active 2023 NATACHA Kwong Attn: Accountin g,[address] [facility], [place], [address], [place] [facility] 4 15:27:46 Gastroesoph ageal reflux disease 047639503 Active 2023 NATACHA Kwong Attn: Accountin g,[address] [facility], [place], [address], [place] [facility] 5 12:43:27 Hyponatremi a 84991759 Active 2023 NATACHA Kwong Attn: Davissimi alves,[address] [place], [place], [address] [place] [address], [place] [facility] 4 15:27:57 Body mass index 20-24 - normal 157790072 Active 2024 Dequan Whitley [place] null, [place] [facility] 5 14:53:11 Positive screening for depression on PHQ-9 (Patient Health Questionnai re 9) [id number] 00 Active 2024 NTAACHA Kwong Attn: Davissimi alves,[address] [place], [place], [address] [place] [address], [place] [facility] 5 14:39:57 Celiac disease 298076847 Active 2024 NATACHA Kwong Attn: Westley joselyn,[address] [place], [place], [address] [place] [address], [place] [facility] 5 14:40:28 Prediabetes 621604835 Active 2024 NATACHA Kwong Attn: Davissimi alves,[address] [place], [place], [address] [place] [address] 2, [facility] - [facility] 5 12:43:03 Raynaud's phenomenon 421454356 Active 2024 NATACHA Kwong Attn: Davissimi alves,[address] [place], [address], [place] [facility] 5 12:44:39 Problem Notes None recorded. Procedures Surgical History Date Name Laterality Status Provider Name and Address Organization Details Recorded Time Appendectomy completed Dequan Whitley [place] - [place] 02/03/2024 14:41:06 Arthroscopic Surgery completed Dequan Whitley [place] - [facility] 02/03/2024 14:41:11 Back Surgery completed Dequan [place] - [facility] 02/03/2024 14:41:17 Eye Surgery completed Dequan Whitley MA [facility] 02/03/2024 14:41:24 Hernia Repair completed Dequan Whitley [facility] 02/03/2024 14:42:05 Joint Replacement completed Dequan NavarroNUNU roy [facility] 02/03/2024 14:42:12 Knee Surgery completed Dequan WhitleyNUNU [facility] 02/03/2024 14:42:17 Tonsillectomy completed Dequan WhitleyNUNU [facility] 02/03/2024 14:42:23 Imaging Results None recorded. Procedure Notes None recorded. Medical Equipment None Reported. Allergies No known drug allergies Medications Name Sig Start Date Stop Date Status Note LastModified by Organization Details LastModified Time carvedilol 6.25 mg tablet Take 1 tablet twice a day by oral route. 02/25 completed Not Available Not Available Not Available atorvastati n 20 mg tablet TAKE 1 TABLET BY MOUTH ONCE DAILY active Not Available Not Available No t Available carvedilol 12.5 mg tablet TAKE 1 TABLET BY MOUTH TWICE DAILY active Not Available Not Available No t Available tizanidine 2 mg tablet TAKE 1 TABLET BY MOUTH TWICE DAILY NEEDED FOR SPASMS 08/27 completed Not Available Not Available Not Available lisinopril 20 mg tablet TAKE 1 TABLET BY MOUTH ONCE DAILY active Not Available Not Available No t Available famotidine 40 mg tablet Take 1 tablet every day by oral route at dinner. 2023 active Not Available Not Available Not Avai lable alendronate 70 mg tablet TAKE 1 TABLET BY MOUTH ONCE A WEEK active Not Available Not Available No t Available amlodipine 2.5 mg tablet TAKE 1 TABLET BY MOUTH ONCE DAILY 08/27 completed Not Available Not Available Not Available amlodipine 5 mg tablet TAKE 1 TABLET BY MOUTH bid active boost to twice daily Not Available Not Available Not Available hydrocodone 10 mg-acetamin ophen 325 mg tablet TAKE 1 TABLET BY MOUTH EVERY 6 HOURS NEEDED X 15 DAYS 08/25 completed Not Available Not Available Not Available omeprazole 40 mg capsule,del ayed release TAKE 1 CAPSULE BY MOUTH ONCE DAILY active Not Available Not Available No t Available oxycodone-a cetaminophe n 5 mg-325 mg tablet TAKE 1 TABLET BY MOUTH EVERY 6 HOURS NEEDED FOR 7 DAYS 08/27 completed Not Available Not Available Not Available amoxicillin 875 mg tablet TAKE 1 TABLET BY [...] Not Available Not Available Not Avai lable lisinopril 20 mg-hydrochl orothiazide 25 mg tablet TAKE 1 TABLET BY MOUTH ONCE DAILY 08/27 completed Not Available Not Available Not Available ergocalcife rol (vitamin D2) 1,250 mcg (50,000 unit) capsule TAKE 1 CAPSULE BY MOUTH ONCE A WEEK active Not Available Not Available No t Available hydroxychlo roquine 200 mg tablet TAKE 1 TABLET BY MOUTH TWICE DAILY active Not Available Not Available No t Available oxycodone-a cetaminophe n 7.5 mg-325 mg tablet TAKE 1 TABLET BY MOUTH EVERY 6 HOURS NEEDED active Not Available Not Available No t Available duloxetine 30 mg capsule,del ayed release TAKE 1 CAPSULE BY MOUTH ONCE DAILY active Not Available Not Available No t Available sodium chloride 1,000 mg soluble tablet TAKE 1 & 1/2 (ONE & ONE-HALF ) TABLETS BY MOUTH TWICE DAILY FOR 1 MONTH 08/27 completed Not Available Not Available Not Available Vitals Date Recorded Systolic blood pressure Diastolic blood pressure Provider Name and Address Organization Details Last Updated DateTime 08/25/2024 150 mm[Hg] 80 mm[Hg] NATACHA Kwong Attn: Accounting,[address] [place], [address], [facility] 08/25/2024 15:29:00 Date Recorded Body height Body mass index (BMI) Body weight Respiratory rate Oxygen saturation Oxygen saturation in Arterial blood by Pulse oximetry Heart rate Systolic blood pressure Diastolic blood pressure Provider Name and Address Organization Details Last Updated DateTime 150.5 cm 21 kg/m2 81956.2 g 20 /min 98 % 98 % 69 /min 146 mm[Hg] 80 mm[Hg] Dequan Whitley MA [facility] 14:59:17 Date Recorded Systolic blood pressure Diastolic blood pressure Provider Name and Address Organization Details Last Updated DateTime 10/22/2024 140 mm[Hg] 72 mm[Hg] NATACHA Kwong Attn: Accounting,[address] [place], [address], [facility] 10/22/2024 15:28:32 Date Recorded Body height Body mass index (BMI) Body weight Respiratory rate Oxygen saturation Oxygen saturation in Arterial blood by Pulse oximetry Heart rate Systolic blood pressure Diastolic blood pressure Provider Name and Address Organization Details Last Updated DateTime 5 150.5 cm 20.6 kg/m2 12053.0 1 g 18 /min 97 % 97 % 72 /min 142 mm[Hg] 70 mm[Hg] Dequan Whitley MA [facility] 5 15:10:28 Date Recorded Systolic blood pressure Diastolic blood pressure Provider Name and Address Organization Details Last Updated DateTime 02/03/2024 160 mm[Hg] 80 mm[Hg] NATACHA Kwong Attn: Accounting,[address] [place], [address], [facility] 02/03/2024 15:10:35 Date Recorded Body height Body mass index (BMI) Body weight Respiratory rate Oxygen saturation Oxygen saturation in Arterial blood by Pulse oximetry Heart rate Systolic blood pressure Diastolic blood pressure Provider Name and Address Organization Details Last Updated DateTime 4 150.5 cm 21.4 kg/m2 38200.6 7 g 18 /min 97 % 97 % 66 /min 148 mm[Hg] 68 mm[Hg] Dequan Whitley MA [facility] 14:42:47 Date Recorded Systolic blood pressure Diastolic blood pressure Systolic blood pressure Diastolic blood pressure Provider Name and Address Organization Details Last Updated DateTime 03/15/2024 130 mm[Hg] 62 mm[Hg] 130 mm[Hg] 64 mm[Hg] NATACHA Kwong Attn: Accounting ,[address] [place], [address] , [facility] 14:35:11 Date Recorded Body height Body mass index (BMI) Body weight Respiratory rate Oxygen saturation Oxygen saturation in Arterial blood by Pulse oximetry Heart rate Systolic blood pressure Diastolic blood pressure Provider Name and Address Organization Details Last Updated DateTime 4 150.5 cm 21.2 kg/m2 15235.7 9 g 20 /min 98 % 98 % 60 /min 150 mm[Hg] 82 mm[Hg] Dequan Whitley MA [facility] 4 14:12:50 Date Recorded Systolic blood pressure Diastolic blood pressure Provider Name and Address Organization Details Last Updated DateTime 04/27/2024 130 mm[Hg] 74 mm[Hg] NATACHA Kwong Attn: Accounting,[address] [place], [address], [facility] 04/27/2024 15:25:01 Date Recorded Body height Body mass index (BMI) Body weight Respiratory rate Oxygen saturation Oxygen saturation in Arterial blood by Pulse oximetry Heart rate Systolic blood pressure Diastolic blood pressure Provider Name and Address Organization Details Last Updated DateTime 150.5 cm 20.8 kg/m2 58704.6 1 g 20 /min 96 % 96 % 55 /min 132 mm[Hg] 82 mm[Hg] Dequan Whitley MA [facility] 4 14:58:04 Social History Question Answer Notes LastModified by [employer] ion Details LastModified Time Tobacco Smoking Status Never Smoker Dequan Whitley MA null, [facility] 08/28/2023 15:22:43 Do You Have An Advance Directive? Yes Information not available 08/28/2023 Are You Blind [...] Date Of Your Most Recent Tobacco Screening? 10/22/2024 Information not available 10/22/2024 What Is Your Relationship Status? Information not available 02/03/2024 Do You Use Your Seat Belt Or Car Seat Routinely? Yes Information not available 08/28/2023 Do You Have Smoke And Carbon Monoxide Detectors In Your Home? Yes Information not available 08/28/2023 Do You Use Sunscreen Routinely? No Information not available 08/28/2023 Has Tobacco Cessation Counseling Been Provided? No Information not available 08/28/2023 Sex: Female Functional Status Question Answer Note LastModified by Organizat ion Details LastModified Time Do you use any illicit or recreational drugs? No Information not available 02/03/2024 Do you or have you ever used any other forms of tobacco or nicotine? No Information not available 08/28/2023 What is your level of alcohol consumption? Occasional only shona time Information not available 08/28/2023 Are you able to care for yourself? Yes Information not available 08/28/2023 What is your exercise level? None Information not available 02/03/2024 Mental Status Question Answer Note LastModified by Organization D etails LastModified Time Do you feel stressed (tense, restless, nervous, or anxious, or unable to sleep at night)? [id number] Information not available 02/03/2024 Family History Nothing Reported. Medical History Condition [...] Details Recorded Time zoster recombinant 4 completed Dequan [place], [place] [facility] 03/16/2024 16:58:09 zoster recombinant [...] 16:58:09 Influenza, high-dose, quadrivalent, PF 1 completed Dequ[place] [facility] 03/16/2024 16:58:09 COVID-19, mRNA, LNP-S, PF, 30 mcg/0.3 mL dose 2 completed Dequan Whitley [place] null, [place] [...] 03/16/2024 16:58:09 influenza, unspecified formulation 8 completed NUNU [place], [place] [facility] 03/16/2024 16:58:09 Tdap 5 [place] [facility] 03/16/2024 16:58:09 Pneumococcal conjugate PCV 13 6 [place] [facility] 03/16/2024 16:58:09 zoster live 3 [place] [facility] 03/16/2024 16:58:09 Influenza, high-dose, trivalent, PF 7 [place] [facility] 03/16/2024 16:58:09 Influenza, split virus, trivalent, preservative 3 [place] [facility] 03/16/2024 16:58:09 Influenza, split virus, trivalent, preservative 2 [place] [facility] 03/16/2024 16:58:09 Influenza, split virus, quadrivalent, PF 5 [place] [facility] 03/16/2024 16:58:09 Influenza, high-dose, trivalent, PF 4 completed NATACHA Kwong Attn: Accounting,[address] [place], [address], [place] [facility] 04/04/2024 23:32:16 Past Encounters Encounter ID Performer Location Encounter Start Date Encounter Closed Date Diagnosis/Indication Diagnosis SNOMED-CT Code Diagnosis ICD10 Code Diagnosis Note [id number] Hudson Montoya MD [facility] [address] [place] [address] 08/28/2023 14:45:33 09/06/2023 07:14:54 Benign essential hypertension 7038193 I10 discontinu e amlodipine script, and start coreg 6.25mg bid and lisinopril 20mg daily. Mixed hyperlipidemia 267 587450 E78.2 Refill on atorvastat in 20mg daily and due for fasting lipid panel Hypothyroidism 66877033 E03.9 due for thyroid lab panel. on synthroid 75mcg daily from [place] [facility] Rheumatoid arthritis 698 32457 M06.9 follows with Rheumatolo gy; pt taking hydroxychl oroquine 200mg bid Osteoporosis 62124714 M8 1.0 due for vit d lab. Pt is taking fosamax 70mg weekly script Long-term drug therapy 327581451 Z79.899 routine bmp and cbc and LFT due. [id number] Hudson Montoya MD [facility] [place] [facility] [address] [place] [address] 02/03/2024 14:02:13 02/03/2024 15:23:45 Benign essential hypertension 1811559 I10 Patient does have elevation today coreg 6.25mg bid and lisinopril 20mg daily. She is a little bit flustered and still grieving with the loss of her . We will have her son who is a nurse practition er check her blood pressure see what her home readings are at. We have room to increase Coreg or lisinopril as needed. Mixed hyperlipidemia 267 207952 E78.2 Refill on atorvastat in 20mg daily and due for fasting lipid panel in March Hypothyroidism 69484243 E03.9 Patient is stable on labs in the spring. Due again for thyroid function panel in March. She is on synthroid 75mcg daily from [place] [facility] Rheumatoid arthritis 698 13457 M06.9 follows with Rheumatolo gy; pt taking hydroxychl oroquine 200mg bid Osteoporosis 72765688 M8 1.0 due for vit d lab. Pt is taking fosamax 70mg weekly script Long-term drug therapy 449491915 Z79.899 routine bmp and cbc and LFT and vitamin B12/folate due in March, follow-up planned in April in the office Blood gluc ose outside reference range 321720704 R73.09 Slight increased risk for developing diabetes. Following A1c which is due again in March Nausea 545812414 R11.0 Continue omeprazole in the morning dosing and add famotidine 40 mg with dinner. Dyspnea on exertion 6084 5006 R06.09 Patient reports some dyspnea on exertion noted in the last couple of months. This is abnormal for her. We will refer for Lexiscan stress testing and complete echo with Doppler color flow [id number] Hudson Montoya MD [facility] [employer] [address] [place] [address] 03/15/2024 14:00:17 03/15/2024 15:19:23 Benign essential hypertension 3452359 I10 continue coreg 12.5mg bid. Lisinopril 20mg daily, blood pressure is well-contr olled at 130/64 today on exam. Echocardio gram abnormal 859079995 R93.1 atrial enlargemen t bilaterall y, EF stable at 50-55%. regurgitat ion in valves noted. Left ventricula r thickness is mild and diastolic grade 1 dysfunctio n noted. Patient has already been referred to Cardiology after results came in to the office. Lexiscan myocardial perfusion testing was normal with an ejection fraction of 70% estimated on that testing. Long-term drug therapy 942654546 Z79.899 Labs are up-to-date from September. Patient does have updated orders to complete. Administra tion of influenza vaccine 13968651 Z23 Flu shot given today [id number] Hudson Montoya MD [facility] [place] [address] [place] [address] 04/27/2024 14:43:39 04/27/2024 16:25:52 Benign essential hypertension 0518741 I10 great control on medication . Rheumatoid arthritis 698 64015 M06.9 follows with Rheumatolo gy; pt taking hydroxychl oroquine 200mg bid Mixed hyperlipidemia 267 409476 E78.2 Stable on atorvastat in 20mg daily Hypothyroidism 63158235 E03.9 Thyroid function testing labs will be due again in August and october she is on synthroid 75mcg daily from [facility] Blood gluc ose outside reference range 116759998 R73.09 Slight increased risk for developing diabetes. Following A1c which is due again in August and October Osteoporosis 75707563 M8 1.0 due for vit d lab. Pt is taking fosamax 70mg weekly script Long-term drug therapy [id number] Z79.899 routine bmp and cbc and LFT and vitamin B12/folate Hyponatremia 21112370 E8 7.1 this has previously been worked up with testing at prior office location. We will be following BMP levels each lab Gastroesop hageal reflux disease 025681650 K21.9 Add famotidine 40 mg daily to dinner which worked well for her in the past and then she forgot to continue dosing Depressive disorder 0654 6687 F32.A Start trial of duloxetine 30 mg daily which may help with her underlying depression from the recent loss of her this year and also for her pain from her rheumatolo gi condition [id number] Hudson Montoya MD [facility] [place] [address] [place] [address] 08/25/2024 14:34:57 08/25/2024 15:34:32 Body mass index 20-24 - normal [id number] Z68.21 BMI is 21 Benign ess ential hypertension 2340948 I10 Continue amlodipine at 5 mg daily dosing she was off of this for some time because she had swelling at 10 mg dosing but we are encouragin g her to restart at 5 mg which will help not only with her blood pressure that is elevated today at 150/80 but will also help with her underlying likely Raynaud's symptoms Rheumatoid arthritis 698 81482 M06.9 follows with Rheumatolo gy; pt taking hydroxychl oroquine 200mg bid Mixed hyperlipidemia 267 329915 E78.2 Stable on atorvastat in 20mg daily, labs are stable Hypothyroidism 24028565 E03.9 Patient is stable on Synthroid 75 mcg daily and labs are up-to-date Hyponatremia 02748690 E8 7.1 Sodium is stable at 132. We did have to cut out her diuretic to help with this Gastroesop hageal reflux disease 681498006 K21.9 For acid reflux management she is continuing omeprazole 40 mg daily Osteoporosis 09880014 M8 1.0 Pt is taking fosamax 70mg weekly script Depressive disorder 0217 6487 F32.A Patient is taking duloxetine 30 mg daily Long-term drug therapy 350732513 Z79.899 Celiac disease 288989531 K90.0 Underlying history and she does follow a gluten free diet Positive s creening for depression on PHQ-9 (Patient Health Questionnaire 9) [id number] 54891 Z13.31 Patient scored a 15 on her screening today. 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 Spent time again today discussing with the patient at age 83 that she will not be able to always maintain her endurance and stamina especially with her underlying health conditions . Most of her frustratio n revolves all around this which does affect her mood. I have encouraged the patient to reach out to her family members and resources to help her out as needed [id number] Hudson Montoya MD [facility] [place] [address] [place] [address] 10/22/2024 15:00:47 10/22/2024 15:54:17 Benign essential hypertension 7335437 I10 BP 140/72. boost to bid dosing amlodipine 5mg bid which will also help with underlying Raynaud's symptoms that she is reporting today Body mass index 20-24 - normal 323675315 Z68.21 BMI is 20.6 Hyponatremia 09371905 E8 7.1 Sodium is stable at 132. We did have to cut out her diuretic to help with this Long-term drug therapy 791012022 Z79.899 Liver panel and CBC due in April Hypothyroidism 21717697 E03.9 Patient is stable on Synthroid 75 mcg daily and labs are up-to-date Mixed hyperlipidemia 267 911901 E78.2 Stable on atorvastat in 20mg daily, labs are stable repeat again in April Rheumatoid arthritis 698 28114 M06.9 follows with Rheumatolo gy; pt taking hydroxychl oroquine 200mg bid Prediabetes 164582087 R7 3.03 5.9% A1c on recent labs reviewed. Repeat labs again in April. She is limited being gluten free and celiac as to her diet modificati ons Gastroesop hageal reflux disease 351672381 K21.9 For acid reflux management she is continuing omeprazole 40 mg daily. Refill provided Anterior a bdominal wall mass 861966339 R19.[address] scan abdomen and pelvis with contrast due to abdominal wall fullness noted in the right lower quadrant on examinatio n today Raynaud's phenomenon 266 319946 I73.00 Increased amlodipine dosing 5 mg twice daily will help with this Health Concerns Section Related Observation LastModified by Organization Detai ls LastModified Time None Recorded Concern Status LastModified by Organization Details LastModified Time None Recorded Advance Directives Directive Y: Payers Encounter Date Sequence Insurance Name Policy Number Policy Resendiz Covered Member ID Resendiz Member ID Guarantor Name 02/03/2024 2 [place] [id number] Sandra Dudak [id number] Sandra Dudak 02/03/2024 1 [place] Sandra A Dudak [id number] Sandra Dudak 03/15/2024 2 [id number] Sandra Dudak [id number] Sandra Dudak 03/15/2024 1 [place] Sandra A Dudak [id number] Sandra Dudak 04/27/2024 2 [id number] Sandra Dudak [id number] Sandra Dudak 04/27/2024 1 [place] Sandra A Dudak [id number] Sandra Dudak 08/25/2024 2 [place] [id number] Sandra Dudak [id number] Sandra Dudak 08/25/2024 1 [place] Sandra A Dudak [id number] 5 Snadra Dudak 10/22/2024 2 [place] [id number] Sandra Dudak [id number] Sandra Dudak 10/22/2024 1 [place] Sandra A Dudak [id number] 5 Sandra Dudak Notes Date Note Type [...] month ago NATACHA Kwong Attn: Accounting,[address], [place], [address], [facility] 02/08/2024 22:23:59 4 text/html HypertensionReported bypatient.Notes:Patient is here for follow-up on blood pressure. She is now on higher dose of coreg 12.5mg bid and Lisinopril 20mg daily. NATACHA Kwong Attn: Accounting,[address], [place], [address], [facility] 04/04/2024 23:36:04 4 text/html HyperlipidemiaReported bypatient.Notes:pt is taking atorvastatin 20mg daily.HypertensionReported bypatient.Notes:She is now on higher dose of coreg 12.5mg bid and Lisinopril 20mg daily. Reflux/GERDReported bypatient.Notes:pt is taking omeprazole 40mg daily and stable.ThyroidReported bypatient.Notes:pt takes thyroid supplement. due for labs Patient did consult with Cardiology in [place] and they had no acute concerns or changes to the regimen and will follow up with her again next year. We did not receive a consult note from that visit yet but the patient updated us NATACHA Kwong Attn: Accounting,[address], [place], [address], [facility] 05/08/2024 19:10:13 5 text/html HyperlipidemiaReported bypatient.Notes:pt is taking atorvastatin 20mg daily.HypertensionReported bypatient.Notes:She is now on higher dose of coreg 12.5mg bid and Lisinopril 20mg daily. Still with some elevation today Reflux/GERDReported bypatient.Notes:pt is taking omeprazole 40mg daily and stable.ThyroidReported bypatient.Notes:pt takes thyroid supplement, labs are up-to-date Patient did consult with Cardiology in [place] and they had no acute concerns or changes to the regimen and will follow up with her again next year. We did not receive a consult note from that visit yet but the patient updated us Underlying celiac disease in which she does follow a gluten free diet Osteoporosis underlying in which she does take vitamin-D supplement as well as Fosamax 70 mg weekly Chronic hyponatremia is being maintained and has been stable NATACHA Kwong Attn: Accounting,[address], [place], [address], [place] [facility] 09/11/2024 14:43:45 text/html HyperlipidemiaReported bypatient.Notes:pt is taking atorvastatin 20mg daily.HypertensionReported bypatient.Notes:She is now on higher dose of coreg 12.5mg bid and Lisinopril 20mg daily. Still with some elevation today Reflux/GERDReported bypatient.Notes:pt is taking omeprazole 40mg daily and stable.ThyroidReported bypatient.Notes:pt takes thyroid supplement, labs are up-to-date Patient did consult with Cardiology in [place] and they had no acute concerns or changes to the regimen and will follow up with her again next year. We did not receive a consult note from that visit yet but the patient updated us Underlying celiac disease in which she does follow a gluten free diet Osteoporosis underlying in which she does take vitamin-D supplement as well as Fosamax 70 mg weekly Chronic hyponatremia is being maintained and has been stable Pt states that she would like to discuss pain in her finger tips & cold NATACHA Kwong Attn: Accounting,[address], [place], [address], [place] [facility] 11/07/2024 12:44:54 OBGyn Episode No OBEpisode recorded.
--- OUTSIDE RECORDS SUMMARY | 2024-11-08 13:18 | XMS_ITS | Clinical Summary ---
Author Organization [facility] Address [address] [facility] [place] [address] Care Team Providers Care Senior Information Systems Architect Name Role Phone Evi Chinchilla MD Unavailable [phone] Jose Lemon MD Unavailable [phone] Kristopher Shi MD Unavailable [phone] Wilbur Kapadia DO Unavailable Source Comments [facility],non-owned Affiliates and Associated Physician Practices is amultiple site organization consisting of ambulatory clinics and hospital sitesin [place], [place], [place] and [place]. This disclosure is being madepursuant to the Care Everywhere program and may not contain all information available regarding this patient. Last updated 18.[facility] Allergies Active Allergy Reactions Criticality Noted Date Comments Desipramine Hcl 07/26/2008 Taste abberancy Morphine Nausea and/or Vomiting 04/23/2011 Solifenacin 02/28/2015 Xerostomia Medications * Be aware that medications may not be up to date on this document. Alwaysverify current medications with the patient. CALCIUM CITRATE + D PO Take 600 mg by mouth once daily Active Multiple Vitamin (MULTIVITAMINS PO) once daily. Active Kamas-3 Fatty Acids (FISH OIL PO) Take by mouth 2 times daily Active rOPINIRole (REQUIP) 0.25 MG tablet Take 0.25 mg by mouth as needed 12/24/2016 Active vitamin D, ergocalciferol, (DRISDOL) 47769 UNITS capsule TAKE 1 CAPSULE BY MOUTH TWICE WEEKLY 24 capsule 1 05/29/2018 Active lidocaine (XYLOCAINE) 2 % viscous solution 07/13/2018 Active levothyroxine (SYNTHROID) 75 MCG tablet Take 1 tablet by mouth once daily 90 tablet 4 11/12/2018 Active ferrous sulfate 325 (65 FE) MG tablet Take 325 mg by mouth once daily 11/03/2018 Active Zinc 25 MG Take 25 mg by mouth once daily Active lisinopril-hydr oCHLOROthiazide (PRINZIDE; ZESTORETIC) 20-25 MG tablet Take 1 tablet by mouth once daily 90 tablet 01/19/2019 Active dilTIAZem coated beads 24hr (CARDIZEM CD) 300 MG capsule Take 1 capsule by mouth once daily 90 capsule 01/19/2019 Active Active Problems Problem Noted Date Diagnosed Date Restless legs syndrome (RLS) 02/06/2017 Senile purpura 06/27/2016 Overview (06/27/2016): Dr. 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 10/16/2008 Osteoporosis 10/16/2008 DJD (degenerative joint disease) of knee 009 Chronic low back pain 10/16/2008 Overview (04/16/2015): H/o lumbar microdiscectomy Anxiety 10/16/2008 Encounters Date Type Department Care Team Description 09/06/2024 Patient Outreach [facility] - Care Coordination [address] [place] [address] Mari Mullins Outreach Preventive Care from Last 3 Months Immunizations Immunization Administration Dates Next Due INFLUENZA VACCINE 02/16/2019, 8,03/04/2016,2012,03/16/2012,03/25/2011,03/09/2008,0 06/09/2005,03/04/2003,06/09/2001 INFLUENZA VACCINE, HIGH-DOSE , QUADR. (FLUZONE HIGH-DOSE QUADRIVALENT; 65Y+), 0.7 ML (HD-IIV4) 02/06/2017 INFLUENZA VACCINE, QUADR. (F LUZONE; FLULAVAL; FLUARIX; AFLURIA QUADRIVALENT; 6MO+), 0.5 ML (IIV4) 02/28/2015 PNEUMOCOCCAL PPSV23 03/15/2009,03/04/2003 Pneumococcal Pcv13 Conj 06/26/2015 TDAP (7yrs+) 06/08/2015 ZOSTER VACCINE, LIVE 02/15/2013 Family History Medical History Relation Name Comments Heart Failure Father CAD (Coronary Artery Disease) Mother Cancer Mother Relation Name Status Comments Father Mother Sister Alive Social History Tobacco Use Types Packs/Day Years Used Date Smoking Tobacco: Never Smokeless Tobacco: Never Tobacco Cessation:Counseling Given: Yes Alcohol Use Standard Drinks/Week Comments Yes 0 (1 standard drink = 0.6 oz pur e alcohol) 5-6/year Comments No Sex and Gender Information Value Date Recorded Sex Assigned at Not on file 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 Gender Identity Not on file Sexual Orientation Not on file 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 on file Not on file Not on file Last Filed Vital Signs Vital Sign Reading Time Taken Comments Blood Pressure 144/68 01/19/2019 11:39 AM CDT Pulse 70 01/19/2019 11:39 AM CDT Temperature 36.7 C (98.1 F) 01/19/2019 11:39 AM CDT Respiratory Rate 14 04/12/2017 12:40 PM CDT Oxygen Saturation 94% 01/19/2019 11:39 AM CDT Inhaled Oxygen Concentration - - Weight 56.5 kg (124 lb 9.6 oz) 01/19/2019 11:39 AM CDT Height 149.9 cm (4' 11) 01/19/2019 11:39 AM CDT Body Mass Index 25.17 01/19/2019 11:39 AM CDT Plan of Treatment Health Maintenance Due Date Last Done Comments ZOSTER VACCINE (2 of 3) 04/12/2013 02/15/2013 Respiratory Syncytial Virus (RSV) Vaccine Pt: or over 60 yrs (1 - 1-dose 75+ series) 2017 MEDICARE AWV 12 MONTHS 07/14/2019 07/14/2018, 08/05/2017, 05/08/2016, Additional history exists BONE DENSITY TESTING 12/29/2020 12/29/2018, 06/29/2013, 08/17/2008 COVID-19 VACCINE ( season) 2024 DEPRESSION SCREENING 06/09/2024 INFLUENZA VACCINE (Season Ended) 2025 02/16/2019, 03/16/2018, 02/06/2017, Additional history exists DTAP/TDAP/TD VACCINES (2 - Td or Tdap) 06/08/2025 06/08/2015 PNEUMOCOCCAL VACCINE 50+ Completed 016, 03/15/2009, 03/04/2003 HEPATITIS B VACCINE Aged Out No longe r eligible based on patient's age to complete this topic HIB VACCINE Aged Out No longer eligi ble based on patient's age to complete this topic HPV VACCINE Aged Out No longer eligi ble based on patient's age to complete this topic MENINGOCOCCAL (Group B) VACCINE SHARED DECISION-MAKING Aged Out No longer eligible based on patient's age to complete this topic MENINGOCOCCAL GROUPS A/C/Y/W VACCINE Aged Out No longer eligible based on patient's age to complete this topic Goals Goal Patient Goal Type Associated Problems Recent Progress Patient-Stated? Author Blood Pressure < 140/90 Blood Pressure 144/68(2018 11:39 AM CDT) Denise Fields MA Procedures Procedure Name Priority Date/Time Associated Diagnosis Comments DEXA BONE DENSITY 2 SITES Routine 12/29/2018 from Last 3 Months or Most Recently Relevant to Health Maintenance Results * DEXA BONE DENSITY 2 SITES (12/29/2018) Anatomical Region Laterality Modality Other us Provider Unknown DEXA ORDERABLES Final Result from Last 3 Months or Most Recently Relevant to Health Maintenance Insurance MEDICARE ANTHEM ANTHEM SELF PAY NO INSURANCE Member Subscriber Plan / Payer (Ef fective for All Dates) Name:Sandra Frausto Member ID:Not on file Relation to Subscriber:Not on file Name:SANDRA FRAUSTO Subscriber ID:Not on file (Home) Address: [address] [place] [address] Payer ID:Not on file Group ID:Not on file Type:Self Pay Address: [place], [place] [address] [facility] Advance Directives * FULL RESUSCITATION (Latest Code Status on File) Date Activated Date Inactivated Comments 02/28/2015 3:42 PM Unplug if hope less. POA is Barry Frausto. Care Teams Senior Information Systems Architect Relationship Specialty Start Date End Date Evi Chinchilla MD [address] [facility] [address] [place] [address] Gynecology 01/19/10 Jose Lemon MD [address] [facility] [address] [place] [address] Orthopedic Surgery 07/02/13 Kristopher Shi MD [address] [place] [address] Ophthalmology 07/02/13 Wilbur Kapadia DO [address] [place] [address] Physical Medicine and Rehabilitation 05/08/16
--- OUTSIDE RECORDS SUMMARY | 2024-11-08 13:18 | XMS_ITS | Clinical Summary ---
Author Organization [facility] Address [address] [place] [address] Care Team Providers Care Plastic Technician Name Role Phone Naida Kent Primary Care Pr ovider Paresh Olivera NP Unavailable Chris Gaviria MD Unavailable Allergies Active Allergy Reactions Criticality Noted Date [...] 1 tablet (75 mcg total) by mouth net developer architect before breakfast Active ferrous sulfate 325 mg [...] Date Rheumatoid arthritis involvi ng both hands ([facility]/HCC) 05/12/2020 05/15/2021 Right carotid bruit 05/26/2019 05/15/20 21 Pain of foot 01/04/2014 05/15/2021 Encounters Date Type Department Care Team Description 09/23/2024 10:45 AM CDT - 09/23/2024 11:59 PM CDT Hospital Encounter [facility] [address] [place] [id number] Chris Gaviria MD Radiculopathy, lumbosacral region; 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 claudication Discharge Disposition: Discharge to home or self care 09/06/2024 11:30 AM CDT - 09/06/2024 11:59 PM CDT Hospital Encounter [facility] [address] [place] [id number] Paresh Olivera NP Radiculopathy, lumbosacral region (Primary Dx); Sacroiliitis; 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 claudication; Postlaminectomy syndrome, lumbar Discharge Disposition: Discharge to home or self care from Last 3 Months Surgical History Surgery Date Site/Laterality Comments APPENDECTOMY CHOLECYSTECTOMY LUMBAR DISC SURGERY 06/09/2016 - 06/08/2017 ERCP x2 ROTATOR CUFF REPAIR 06/09/2013 - 06/08/2014 Right DISCECTOMY 06/09/2012 - 06/08/2013 INGUINAL HERNIA REPAIR TOTAL KNEE ARTHROPLASTY Left TONSILLECTOMY KYPHOPLASTY Medical History Medical History Date Comments Hyperlipidemia Hypertension GERD (gastroesophageal reflux disease) Anxiety Hypothyroidism Arthritis Anemia Family History Medical History Relation Name Comments Heart failure Father Hypertension Mother Coronary artery disease Sister Relation Name Status Comments Father Mother Sister [...] on file Legal Sex Female 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 Gender Identity Not on file Sexual Orientation Not on file Obstetrics History Last Filed Vital Signs Vital Sign Reading [...] 03/25/2023 12:18 PM CDT Plan of Treatment Health Maintenance Due Date Last Done Comments Depression Screening 1942 Hepatitis B Screening 1960 Well Visit 65+ 11/11/2007 Zoster Vaccine (1 of 2) 04/12/2013 02/15/2013, 06/09 Osteoporosis Screening-Bone Density Scan 12/29/2020 12/29/2018, 12/29/2018 Influenza Vaccine (Season Ended) 2025 03/07/2020, 02/16/2019, 03/16/2018, Additional history exists DTaP/Tdap/Td Vaccine (3 - Td or Tdap) 06/09/2025 06/09/2015, 06/08/2015 Fall Risk Assessment 09/06/2025 09/06/2024 Pneumococcal vaccine 65+ Completed 016, 06/09/2015, 03/15/2009, Additional history exists Procedures Procedure Name Priority Date/Time Associated Diagnosis Comments PAIN MGMT IMAGING LUMBAR/CAUDAL EPIDURAL STEROID INJ Schedule Routine, Read Routine (OP Routine) 09/23/2024 12:15 PM CDT Radiculopathy, lumbosacral region 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 claudication from Last 3 Months Results * Imaging Lumbar/Caudal Epidural Steroid INJ (07526) (09/23/2024 12:15 PM CDT) Narrative [facility] - 09/23/2024 12:16 PM CDT The images from this study are not interpreted by Radiology. Please refer to the physician's procedure / OR operative note. Paresh Olivera NP IMG PAIN MGMT PROCEDURES F inal Result [facility] from Last 3 Months [place] [address] MEDICARE [facility]IC[facility] MEDICARE [place] [address] [facility] MEDICARE SUPPLEMENT Care Teams Plastic Technician Relationship Specialty Start Date End Date Naida Kent PA PCP - General 07/16/21 [place] [address] [address] [facility] [address] [place] [address] Nurse Practitioner Nurse Practitioner 09/06/24 [place] [address] [address] [facility] [address] [address] Consulting Physician Pain Management 09/06/24
--- OUTSIDE RECORDS SUMMARY | 2024-11-08 13:18 | XMS_ITS | Clinical Summary ---
Author Organization [facility] Address [address] [place] [address] Phone Care Team Providers Care Central Melt Specialist Name Role Phone Vahid Harper MD Primary Care Provider [phone] Claudia Bryant APRN, POLICE AND FIRE DISPATCHER Unavailable [phone] Allergies Active Allergy Reactions Criticality Noted Date Comments Desipramine Hcl Other (see Comments) 07/26/2008 Taste abberancy Morphine Nausea 04/23/2011 Solifenacin Other (see Comments) 02/28/2015 Xerostomia Medications Multiple Vitamin (MULTIVITAMINS PO) once daily. Active calcium citrate-vitamin D (CITRACAL+D) 315-200 MG-UNIT Tablet Take 600 mg by mouth. Active dilTIAZem (CARTIA XT) 300 MG CAPSULE SR 24 HR TAKE 1 CAPSULE BY MOUTH ONCE DAILY 8 Active ergocalciferol (VITAMIN D) 11882 UNIT Capsule TAKE 1 CAPSULE BY MOUTH TWICE WEEKLY 8 Active lisinopril-hydr oCHLOROthiazide (PRINZIDE, ZESTORETIC) 20-25 MG Tablet TAKE 1 TABLET BY MOUTH ONCE DAILY 8 Active lidocaine viscous (XYLOCAINE) 2 % Solution 9 Active [place]-3 Fatty Acids (FISH OIL) 500 MG Capsule Take 2 Caps by mouth daily. Active oxyCODONE-aceta minophen (PERCOCET) 5-325 MG Tablet Take 1 Tab by mouth every 4 hours as needed. 5 Active Probiotic Product (PROBIOTIC DAILY PO) Take 1 Tab by mouth daily. Active levothyroxine (SYNTHROID) 75 MCG Tablet Take 75 mcg by mouth. 9 Active raNITIdine (ZANTAC) 150 MG Tablet Take 1 Tab by mouth 2 times daily. 180 Tab 3 9 Active Additional Information Patient not taking.Reported on 04/12/2024 ferrous sulfate 325 (65 Fe) MG Tablet Take 1 Tab by mouth daily. 90 Tab 3 9 Active alendronate (FOSAMAX) 70 MG Tablet Take 70 mg by mouth every 7 days. 3 Active atorvastatin (LIPITOR) 20 MG Tablet Take 1 Tablet by mouth daily. 0 Active carvedilol (COREG) 12.5 MG Tablet Take 12.5 mg by mouth 2 times daily. 4 Active hydroxychloroqu ine (PLAQUENIL) 200 MG Tablet Take 1 Tablet by mouth 2 times daily. Active Encounters Date Type Department Care Team Description 09/13/2024 Telephone [facility] [address] [place] [address] Claudia Bryant, EDITOR, POLICE AND FIRE DISPATCHER from Last 3 Months Family History Medical History Relation Name Comments Congestive Heart Failure Father Breast Cancer Mother Heart Attack Mother Kidney Cancer Mother Coronary Artery Disease Sister Other-comment Sister heart problems Relation Name Status Comments Father Mother Sister Social History Tobacco Use Types Packs/Day Years Used Date Smoking Tobacco: Never Smokeless Tobacco: Never Tobacco Cessation:Counseling Given: Not Answered Alcohol Use Standard Drinks/Week Comments Yes 0 (1 standard drink = 0.6 oz pur e alcohol) 2-3 times a year PHQ-2 Answer Date Recorded PHQ-2 Score 0 02/15/2019 Sexually Active Control Partners Comments Yes Male Comments No Sex and Gender Information Value Date Recorded Sex Assigned at Not on file Legal Sex Female 8:48 PM CDT Gender Identity Not on file Sexual Orientation Not on file Last Filed Vital Signs Vital Sign Reading Time Taken Comments Blood Pressure 138/82 04/12/2024 2:52 PM HEALTH INFORMATION ADMINISTRATOR Pulse 71 04/12/2024 2:52 PM HEALTH INFORMATION ADMINISTRATOR Temperature 36.3 C (97.4 F) 04/12/2024 2:52 PM HEALTH INFORMATION ADMINISTRATOR Respiratory Rate 16 04/12/2024 2:52 PM HEALTH INFORMATION ADMINISTRATOR Oxygen Saturation 94% 04/12/2024 2:52 PM HEALTH INFORMATION ADMINISTRATOR Inhaled Oxygen Concentration - - Weight 47.2 kg (104 lb) 04/12/2024 2:52 PM HEALTH INFORMATION ADMINISTRATOR Height 152.4 cm (5') 04/12/2024 2:52 PM HEALTH INFORMATION ADMINISTRATOR Body Mass Index 20.31 04/12/2024 2:52 PM HEALTH INFORMATION ADMINISTRATOR Plan of Treatment Health Maintenance Due Date Last Done Comments Hepatitis C Virus (HCV) Screening 1940 Respiratory Syncytial Virus (RSV) Immunization (Adult) (1 - 1-dose 75+ series) 2017 DEXA Bone Density 12/29/2020 12/29/2018 SARS-COV-2 Immunization ( season) 2024 06/11/2021, 08/17/2020, 07/20/2020, Additional history exists TdaP Immunization Completed 06/08/2015 DTaP/Tdap/Td Immunization Discontinued 06/09/2015, Pneumococcal Immunization (50+ years) Completed 06/26/2015, 06/09/2015, 03/15/2009, Additional history exists Pneumococcal Immunization Combined Discontinued 06/26/2015, 06/09/2015, 03/15/2009, Additional history exists Zoster Immunization Completed 06/26/2023, 02/04/2023, 02/15/2013, Additional history exists Influenza Immunization Completed , 03/18/2023, 03/12/2022, Additional history exists Hepatitis B Immunization Aged Out No longer eligible based on patient's age to complete this topic Meningococcal Immunization (ACWY) Aged Out No longer eligible based on patient's age to complete this topic Rotavirus Immunization Aged Out No lo nger eligible based on patient's age to complete this topic Procedures Procedure Name Priority Date/Time Associated Diagnosis Comments [facility] BONE DENSITOMETRY AXIAL SKELETON Routine 12/29/2018 2:41 PM CDT Disorder of bone Low bone mass from Last 3 Months or Most Recently Relevant to Health Maintenance Results * SHASHANK BONE DENSITOMETRY AXIAL SKELETON (12/29/2018 2:41 PM CDT) Anatomical Region Laterality Modality BODY N/A Other 12/29/2018 4:28 PM CDT Impressions 12/29/2018 4:31 PM CDT IMPRESSION: Osteopenia of the left hip REFERENCE: Bone mineral density: Normal (T-score above or = -1.0) Low bone mass (T-score between -1.0 and -2.5) replaces the previously used term osteopenia Osteoporosis (T-score = or below -2.5) Medical evaluation for secondary causes of low bone mineral density may be appropriate. FRAX is a World Health Organization validated fracture risk assessment tool that calculates a person's 10 year probability of a major osteoporosis related fracture and hip fracture. According to the National Osteoporosis Foundation guidelines, postmenopausal women and men age 50 or older with low bone mass and a 10 year probability of a major osteoporosis related fracture = or greater than 20% or a 10 year probability of a hip fracture = or greater than 3% should be considered for treatment. For further information, including treatment recommendations, please refer to the 2013 ISCD Official Positions (http://www.iscd.org) and the NOF's Clinician's Guide to Prevention and Treatment of Osteoporosis (http://www.nof.org/professionals/clinical-guidelines) Narrative 12/29/2018 4:31 PM CDT EXAM DESCRIPTION: SHASHANK BONE DENSITOMETRY AXIAL SKELETON REASON FOR STUDY: 78 y/o year old F with given history of screening. Postmenopausal. Disorder of bone unspecified Biological Inspector/Model: [employer] (S/N [id number]) CLINICAL INFORMATION: Current height: 58 inches Weight: 122 pounds Risk factors: History of fracture COMPARISON: None available. FINDINGS: AP LUMBAR SPINE L1-L4: Total BMD is 1.222 g/cm2 T-score is 0.2 Sclerotic degenerative changes of the lumbar spine may limit the accuracy of bone mineral density testing in this patient. LEFT HIP: Total BMD is 0.787 g/cm2 T-score is -1.8 Femoral neck BMD is 0.731 g/cm2 T-score is -2.2 Fracture risk assessment (FRAX): 10 year risk for a major osteoporotic fracture is 22.8 % 10 year risk for a hip fracture is 6.3 % The FRAX tool has not been validated in patients currently or previously treated with pharmacotherapy for osteoporosis. In such patients, clinical judgement must be exercised in interpreting FRAX scores as the fracture risk may be overestimated. THIS IS AN ELECTRONICALLY VERIFIED FINAL REPORT 12/29/2018 4:28 PM - Electronically signed by Sunny BROWN: KEVIN Report ID: [id number] Reading Location: [place] [address] Procedure Note Jose Farmer DPM / Sunny Moctezuma MD - 01/19/2019 EXAM DESCRIPTION: SHASHANK BONE DENSITOMETRY AXIAL SKELETON REASON FOR STUDY: 78 y/o year old F with given history of screening. Postmenopausal. Disorder of bone unspecified Biological Inspector/Model: [employer] (S/N [id number]) CLINICAL INFORMATION: Current height: 58 inches Weight: 122 pounds Risk factors: History of fracture COMPARISON: None available. FINDINGS: AP LUMBAR SPINE L1-L4: Total BMD is 1.222 g/cm2 T-score is 0.2 Sclerotic degenerative changes of the lumbar spine may limit the accuracy of bone mineral density testing in this patient. LEFT HIP: Total BMD is 0.787 g/cm2 T-score is -1.8 Femoral neck BMD is 0.731 g/cm2 T-score is -2.2 Fracture risk assessment (FRAX): 10 year risk for a major osteoporotic fracture is 22.8 % 10 year risk for a hip fracture is 6.3 % The FRAX tool has not been validated in patients currently or previously treated with pharmacotherapy for osteoporosis. In such patients, clinical judgement must be exercised in interpreting FRAX scores as the fracture risk may be overestimated. THIS IS AN ELECTRONICALLY VERIFIED FINAL REPORT 12/29/2018 4:28 PM - Electronically signed by Sunny BROWN: KEVIN Report ID: [id number] Reading Location: [place] [address] IMPRESSION: Osteopenia of the left hip REFERENCE: Bone mineral density: Normal (T-score above or = -1.0) Low bone mass (T-score between -1.0 and -2.5) replaces the previously used term osteopenia Osteoporosis (T-score = or below -2.5) Medical evaluation for secondary causes of low bone mineral density may be appropriate. FRAX is a World Health Organization validated fracture risk assessment tool that calculates a person's 10 year probability of a major osteoporosis related fracture and hip fracture. According to the National Osteoporosis Foundation guidelines, postmenopausal women and men age 50 or older with low bone mass and a 10 year probability of a major osteoporosis related fracture = or greater than 20% or a 10 year probability of a hip fracture = or greater than 3% should be considered for treatment. For further information, including treatment recommendations, please refer to the 2013 ISCD Official Positions (http://www.iscd.org) and the NOF's Clinician's Guide to Prevention and Treatment of Osteoporosis (http://www.nof.org/professionals/clinical-guidelines) Ema Alston APRN, CNP IMG DEXA ORDERABL ES Edited Result - Final from Last 3 Months or Most Recently Relevant to Health Maintenance Insurance MEDICARE [facility] Care Teams Central Melt Specialist Relationship Specialty Start Date End Date Vahid Harper MD [address] [facility] [address] [place] [address] PCP - General Internal Medicine 08/24/18 Claudia Bryant APRN, POLICE AND FIRE DISPATCHER [address] [facility], [address] [place] [address] Nurse Practitioner Cardiology 04/15/24
[2024-11-08 13:41] LABS: Estimated Glomerular Filt Rate > 60
== END 2024-11-08 13:07 | disposition home or self-care (01) ==
PROVIDERS: PCP Physician Assistant; Visit Provider Physician Assistant
DX: K40.90 Unilateral inguinal hernia, without obstruction or gangrene, not specified as recurrent (principal); K43.9 Ventral hernia without obstruction or gangrene; D21.9 Benign neoplasm of connective and other soft tissue, unspecified; D21.4 Benign neoplasm of connective and other soft tissue of abdomen; R19.07 Generalized intra-abdominal and pelvic swelling, mass and lump
CPT/HCPCS: 74177; Q9967

== ENCOUNTER 2025-01-17 12:44 | Outpatient (CLI) | payer MEDICARE, SELFPAY ==
[2025-01-17 13:30] LABS: Hematocrit 32.2 % (37.0-47.0); Hemoglobin 10.6 g/dL (12.0-15.0); Immature Granulocyte Percent A 0.4 % (0-0.5); Lymphocytes Absolute Auto 1.25 K/mm3 (0.9-3.2); Mean Corpuscular HGB Conc 32.9 g/dl (32-36); Mean Corpuscular Hemoglobin 29.8 pg (26-34); Mean Corpuscular Volume 90.4 fl (80-100); Nucleated Red Blood Cells Absolute Auto 0.000 K/mm3 (0.0-0.012); Nucleated Red Blood Cells Perc 0.0 % (0.0-0.2); Platelet Count Result 353 k/mm3 (150-375); Red Blood Count 3.56 M/mm3 (4.2-5.4); White Blood Count 7.1 K/mm3 (4.5-10.0)
[2025-01-17 13:56] LABS: Anion Gap 6 mmol/L (4-12); Blood Urea Nitrogen 9 mg/dL (7-17); Calcium 8.8 mg/dL (8.4-10.2); Carbon Dioxide 24 mmol/L (22-30); Chloride 93 mmol/L (98-107); Estimated Glomerular Filt Rate > 60; Glucose 92 mg/dL (65-110); Potassium 4.3 mmol/L (3.4-5.0); Sodium 123 mmol/L (137-145)
== END 2025-01-17 12:45 | disposition home or self-care (01) ==
LOC: ANHSURGERY 12:52
PROVIDERS: Anesthesiology; PCP Physician Assistant; Visit Provider Surgery
DX: K43.9 Ventral hernia without obstruction or gangrene (principal); K40.90 Unilateral inguinal hernia, without obstruction or gangrene, not specified as recurrent; E87.1 Hypo-osmolality and hyponatremia
CPT/HCPCS: 36415; 80048; 85025; 86850; 86900; 86901

== ENCOUNTER 2025-01-21 08:57 | Outpatient (CLI) | payer MEDICARE, SELFPAY ==
--- OUTSIDE RECORDS SUMMARY | 2025-01-21 09:02 | XMS_ITS | Clinical Summary ---
Author Organization [facility] Address [address] [place] [address] Care Team Providers Care Reservations Agent Name Role Phone Naida Kent Primary Care Pr ovider Paresh Olivera NP Unavailable Chris Gaviria MD Unavailable [phone] Allergies Active Allergy Reactions Criticality Noted Date [...] 1 tablet (75 mcg total) by mouth chemical process project engineer before breakfast Active ferrous sulfate 325 mg [...] Encounters Date Type Department Care Team Description 12/20/2024 2:26 PM CDT - 12/20/2024 11:59 PM CDT Hospital Encounter [facility] [address] [place] [address] Chris Gaviria MD 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] (Primary Dx); Lumbar radiculopathy Discharge Disposition: Discharge to home or self [...] on file Legal Sex Female 8:14 PM 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 GLUER Gender Identity Not on file Sexual Orientation Not on file Obstetrics History Last Filed Vital Signs Vital Sign Reading Time Taken Comments Blood Pressure 144/54 12/20/2024 3:30 PM CDT Pulse 64 12/20/2024 3:30 PM CDT Temperature 36.5 C (97.7 F) 12/20/2024 2:44 PM CDT Respiratory Rate 17 12/20/2024 3:30 PM CDT Oxygen Saturation 98% 12/20/2024 3:30 PM CDT Inhaled Oxygen Concentration - - [...] Density Scan 12/29/2020 12/29/2018, 12/29/2018 Influenza Vaccine (#1) 2025 0, 02/16/2019, 03/16/2018, Additional history exists DTaP/Tdap/Td Vaccine (3 - Td or Tdap) 06/09/2025 06/09/2015, 06/08/2015 Fall Risk Assessment 09/06/2025 09/06/2024 Pneumococcal vaccine 65+ Completed 016, 06/09/2015, 03/15/2009, Additional history exists Procedures Procedure Name Priority Date/Time Associated Diagnosis Comments PAIN MGMT IMAGING LUMBAR/CAUDAL EPIDURAL STEROID INJ Schedule Routine, Read Routine (OP Routine) 12/20/2024 3:31 PM CDT Lumbar radiculopathy from Last 3 Months Results * Imaging Lumbar/Caudal Epidural Steroid INJ (72185) (12/20/2024 3:31 PM CDT) Narrative RAD_PACS_CH - 12/20/2024 3:31 PM CDT The images from this study are not interpreted by Radiology. Please refer to the physician's procedure / OR operative note. us Chris Gaviria MD IMG PAIN MGMT PROCEDU RES Final Result RAD_PACS_CH from Last 3 Months Insurance MEDICARE [facility] [employer] [employer] MEDICARE SUPPLEMENT MEDICARE [facility] MEDICARE SUPPLEMENT Care Teams Reservations Agent Relationship Specialty Start Date End Date Naida Kent PA PCP - General 07/16/21 [place] [address] [address] Nurse Practitioner Nurse Practitioner 09/06/24 [place] [address] [address] [facility] [address] [address] Consulting Physician Pain Management 09/06/24
--- OUTSIDE RECORDS SUMMARY | 2025-01-21 09:02 | XMS_ITS | Clinical Summary ---
Author Organization [facility] Address [address] [place] [address] Care Team Providers Care Handle Attacher Name Role Phone Evi Chinchilla MD Unavailable [phone] Jose Lemon MD Unavailable Kristopher Shi MD Unavailable [phone] Wilbur Kapadia DO Unavailable Source Comments [facility],non-owned Affiliates and Associated Physician Practices is amultiple site organization consisting of ambulatory clinics and hospital sitesin [place], [place], [place] and [place]. This disclosure is being madepursuant to the Care Everywhere program and may not contain all information available regarding this patient. Last updated 18.[facility] Allergies Active Allergy Reactions Criticality Noted Date Comments Desipramine Hcl 07/26/2008 Taste abberancy Morphine Nausea and/or Vomiting 04/23/2011 Solifenacin 02/28/2015 Xerostomia Medications * Be aware that medications may not be up to date on this document. Alwaysverify current medications with the patient. CALCIUM CITRATE + D PO Take 600 mg by mouth once daily Active Multiple Vitamin (MULTIVITAMINS PO) once daily. 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 10/16/2008 Osteoporosis 10/16/2008 DJD (degenerative joint disease) of knee 009 Chronic low back pain 10/16/2008 Overview (04/16/2015): H/o lumbar microdiscectomy Anxiety 10/16/2008 Immunizations Immunization Administration Dates Next Due INFLUENZA [...] on file Legal Sex Female 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 Gender Identity Not on file Sexual Orientation [...] season) 2024 DEPRESSION SCREENING 06/09/2024 INFLUENZA VACCINE (#1) 2025 9, 03/16/2018, 02/06/2017, Additional history exists DTAP/TDAP/TD VACCINES [...] 140/90 Blood Pressure 144/68(2018 11:39 AM CDT) No Denise Townsend MA Procedures Procedure Name Priority Date/Time Associated [...] FRAUSTO Subscriber ID:Not on file (Home) Address: [facility] [place] [address] Payer ID:Not on file Group ID:Not on file Type:Self Pay Address: [place], [place] MEDICARE [facility] Advance Directives * FULL RESUSCITATION (Latest Code Status on File) Date Activated Date Inactivated Comments 02/28/2015 3:42 PM Unplug if hope less. POA is Barry Frausto. Care Teams Handle Attacher Relationship Specialty Start Date End Date Evi Chinchilla MD [address] [facility] [address] [place] [address] Gynecology 01/19/10 Jose Lemon MD [address] [facility] [address] [place] [address] Orthopedic Surgery 07/02/13 Kristopher Shi MD [address] [place] [id number] Ophthalmology 07/02/13 Wilbur Kapadia DO [address] [place] [phone] Physical Medicine and Rehabilitation 05/08/16
[2025-01-21 09:51] LABS: Sodium 123 mmol/L (137-145)
== END 2025-01-21 08:58 | disposition home or self-care (01) ==
PROVIDERS: Anesthesiology; PCP Physician Assistant; Visit Provider Surgery
DX: Z01.812 Encounter for preprocedural laboratory examination (principal); E87.1 Hypo-osmolality and hyponatremia
CPT/HCPCS: 36415; 84295

== ENCOUNTER 2025-02-11 13:45 | Outpatient (CLI) | payer MEDICARE, SELFPAY ==
--- NOTE | ~2025-02-11 | XR_ITS ---
XR chest 2V 02/11/2025 14:07 Indication: Hypertension. Low sodium. Procedure: 2 view chest Comparison: 11/06/2022 Findings: There are chronic bilateral interstitial infiltrates, likely scarring/atelectasis. Borderline heart size. There is atherosclerosis and ectasia of the aorta. No acute focal pneumonia, edema or pneumothorax. There is a lower thoracic compression fracture treated with vertebroplasty. Impression: 1: No acute cardiopulmonary disease. Reviewed, dictated and finalized at location O. Impression: 1: No acute cardiopulmonary disease.
--- OUTSIDE RECORDS SUMMARY | 2025-02-11 14:08 | XMS_ITS | Clinical Summary ---
Author Organization [facility] Address [address] [place] [address] Phone Care Team Providers Care E Mail System Administrator Name Role Phone Vahid Harper MD Primary Care Provider [phone] Allergies Active Allergy Reactions Criticality Noted Date [...] ONCE DAILY 8 Active ergocalciferol (VITAMIN D) 39694 UNIT Capsule TAKE 1 CAPSULE BY MOUTH TWICE WEEKLY 8 Active lisinopril-hydr oCHLOROthiazide (PRINZIDE, ZESTORETIC) 20-25 MG Tablet TAKE 1 TABLET BY MOUTH ONCE DAILY 8 Active lidocaine viscous (XYLOCAINE) 2 % Solution 9 Active [place]-3 Fatty Acids (FISH OIL) 500 MG Capsule [...] Tablet by mouth 2 times daily. Active Family History Medical History Relation Name Comments [...] Comments Blood Pressure 138/82 04/12/2024 2:52 PM LUMBER PILER Pulse 71 04/12/2024 2:52 PM LUMBER PILER Temperature 36.3 C (97.4 F) 04/12/2024 2:52 PM LUMBER PILER Respiratory Rate 16 04/12/2024 2:52 PM LUMBER PILER Oxygen Saturation 94% 04/12/2024 2:52 PM LUMBER PILER Inhaled Oxygen Concentration - - Weight 47.2 kg (104 lb) 04/12/2024 2:52 PM LUMBER PILER Height 152.4 cm (5') 04/12/2024 2:52 PM LUMBER PILER Body Mass Index 20.31 04/12/2024 2:52 PM LUMBER PILER Plan of Treatment Health Maintenance Due Date Last Done Comments Hepatitis C Virus (HCV) Screening 1940 Respiratory Syncytial Virus (RSV) Immunization (Adult) (1 - 1-dose 75+ series) 2017 DEXA Bone Density 12/29/2020 12/29/2018 Influenza Immunization (#1) 2025 10/0 12/2023, 03/18/2023, 03/12/2022, Additional history exists SARS-COV-2 Immunization ( season) 2025 06/11/2021, 08/17/2020, 07/20/2020, Additional history exists TdaP Immunization Completed 06/08/2015 DTaP/Tdap/Td Immunization Discontinued 06/09/2015, Pneumococcal Immunization (50+ years) Completed 06/26/2015, 06/09/2015, 03/15/2009, Additional history exists Pneumococcal Immunization Combined Discontinued 06/26/2015, 06/09/2015, 03/15/2009, Additional history exists Zoster Immunization Completed 06/26/2023, 02/04/2023, 02/15/2013, Additional history exists Hepatitis B Immunization Aged Out No longer eligible based on patient's age to complete this topic Human Papillomavirus (HPV) Immunization Aged Out No longer eligible based on patient's age to complete this topic Meningococcal Immunization (ACWY) Aged Out No longer eligible based on patient's age to complete this topic Rotavirus Immunization Aged Out No lo nger eligible based on patient's age to complete this topic Procedures Procedure Name Priority Date/Time Associated Diagnosis Comments [facility] BONE DENSITOMETRY AXIAL SKELETON Routine 12/29/2018 2:41 PM CDT Disorder of bone Low bone mass from Last 3 Months or Most Recently Relevant to Health Maintenance Results * [facility] BONE DENSITOMETRY AXIAL SKELETON (12/29/2018 2:41 PM [...] of screening. Postmenopausal. 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 KEVIN: KEVIN Report ID: [id number] Reading Location: [id number] Procedure Note Jose Farmer DPM / Sunny Moctezuma MD - 01/19/2019 EXAM DESCRIPTION: SHASHANK BONE DENSITOMETRY AXIAL SKELETON REASON FOR STUDY: 78 y/o year old F with given history of screening. Postmenopausal. Disorder of bone unspecified Food Sales Clerk/Model: [employer] (S/N [id number]) CLINICAL INFORMATION: Current height: 58 inches Weight: [...] 4:28 PM - Electronically signed by Sunny Moctezuma M.D. KEVIN: KEVIN Report ID: [id number] Reading Location: [id number] IMPRESSION: Osteopenia of the left hip REFERENCE: [...] and Treatment of Osteoporosis (http://www.nof.org/professionals/clinical-guidelines) Ema Alston OPTOMETRIST, PLEATER IMG DEXA ORDERABL ES Edited Result - Final from Last 3 Months or Most Recently Relevant to Health Maintenance Insurance [facility]ICARE [facility] Care Teams E Mail System Administrator Relationship Specialty Start Date End Date Vahid Harper MD [address] [facility] [address] [place] [id number] PCP - General Internal Medicine 08/24/18
--- OUTSIDE RECORDS SUMMARY | 2025-02-11 14:08 | XMS_ITS | Clinical Summary ---
Author Organization [facility] Address [address] [place] [address] Care Team Providers Care Rounder Hand Name Role Phone Evi Chinchilla MD Unavailable [phone] Jose Lemon MD Unavailable [phone] Kristopher Shi MD Unavailable [phone] Wilbur Kapadia DO Unavailable Source Comments [facility],non-owned Affiliates and Associated Physician Practices is amultiple site organization consisting of ambulatory clinics and hospital sitesin [place], [place], [place] and [place]. This disclosure is being madepursuant to the Care Everywhere program and may not contain all information available regarding this patient. Last updated 18.[facility] Allergies Active Allergy Reactions Criticality Noted Date Comments Desipramine Hcl 07/26/2008 Taste abberancy Morphine Nausea and/or Vomiting 04/23/2011 Solifenacin 02/28/2015 Xerostomia Medications * Be aware that medications may not be up to date on this document. Alwaysverify current medications with the patient. CALCIUM CITRATE + D PO Take 600 mg by mouth once daily Active Multiple Vitamin (MULTIVITAMINS PO) once daily. 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 Gender Identity Not on file Sexual Orientation [...] BONE DENSITY TESTING 12/29/2020 12/29/2018, 06/29/2013, 08/17/2008 DEPRESSION SCREENING 06/09/2024 COVID-19 VACCINE ( season) 2025 INFLUENZA VACCINE (#1) 2025 9, 03/16/2018, 02/06/2017, [...] FRAUSTO Subscriber ID:Not on file (Home) Address: [facility] [place] [address] Payer ID:Not on file Group ID:Not on file Type:Self Pay Address: [place], [place] MEDICARE [facility] Advance Directives * FULL RESUSCITATION (Latest Code Status on File) Date Activated Date Inactivated Comments 02/28/2015 3:42 PM Unplug if hope less. POA is Barry Frausto. Care Teams Rounder Hand Relationship Specialty Start Date End Date Evi Chinchilla MD [address] [facility] [address] [place] [address] Gynecology 01/19/10 Joes Lemon MD [address] [facility] [address] [place] [address] Orthopedic Surgery 07/02/13 Kristopher Shi MD [address] [place] [phone] Ophthalmology 07/02/13 Wilbur Kapadia DO [address] [phone] Physical Medicine and Rehabilitation 05/08/16
--- OUTSIDE RECORDS SUMMARY | 2025-02-11 14:08 | XMS_ITS | Clinical Summary ---
Author Organization [facility] Address [address] [address] Care Team Providers Care Delivery Supervisor Name Role Phone Naida Kent Primary Care Provider [phone] Allergies Active Allergy Reactions Criticality Noted Date Comments Morphine Nausea 03/25/2023 Medications alendronate (FOSAMAX) 70 MG tablet Take 70 mg by mouth every 7 (seven) days Take in the morning with a full glass of water, on an empty stomach, and do not take anything else by mouth or lie down for the next 30 min. Active amLODIPine (NORVASC) 5 MG tablet Take 5 mg by mouth 1 (one) time each day Active atorvastatin (LIPITOR) 20 MG tablet Take 20 mg by mouth 1 (one) time each day Active CALCIUM CITRATE PO Take 1,200 mg by mouth 1 (one) time each day Active Multiple Vitamin (Daily Vitamin) tablet Take 1 tablet by mouth 1 (one) time each day Active ergocalciferol 1.25 MG (34904 UT) capsule Take 50,000 Units by mouth 1 (one) time per week Active ferrous sulfate 325 (65 Fe) MG tablet Take 325 mg by mouth 1 (one) time each day with breakfast Active omega-3 (FISH OIL) 1000 MG capsule Take 1,000 mg by mouth 1 (one) time each day Active hydroxychloroqu ine (PLAQUENIL) 200 MG tablet Take 200 mg by mouth 1 (one) time each day Active omeprazole (PriLOSEC) [address] capsule Take 40 mg by mouth 1 (one) time each day Do not crush or chew. Active oxyCODONE-aceta minophen (PERCOCET) 5-325 MG per tablet Take 1 tablet by mouth every 6 (six) hours if needed Active saccharomyces boulardii (FLORASTOR) 250 MG capsule Take 250 mg by mouth in the morning and 250 mg in the evening. Active levothyroxine (SYNTHROID, LEVOTHROID) 75 MCG tablet Take 75 mcg by mouth 1 (one) time each day Active carvedilol (COREG) 25 MG tablet Take 25 mg by mouth in the morning and 25 mg in the evening. Active DULoxetine (CYMBALTA) [address] capsule Take 30 mg by mouth 1 (one) time each day Do not crush or chew. 02/10/20 Discontinu ed(Therapy completed) Lidocaine HCl (Lidocaine Viscous HCl) 2 % solution Use in the mouth or throat if needed 02/10/20 Discontinu ed(Therapy completed) tiZANidine (ZANAFLEX) 2 MG tablet Take 2 mg by mouth 2 (two) times a day if needed 02/10/20 Discontinu ed(Therapy completed) valACYclovir (VALTREX) 500 MG tablet Take 500 mg by mouth 1 (one) time each day 02/10/20 Discontinu ed(Therapy completed) Encounters Date Type Department Care Team Description 02/09/2025 Orders Only [facility] Rebecca. [address] [facility] [address] [place] [address] Crystal Feng MA from Last 3 Months Family History Medical History Relation Comments Arthritis Father Heart attack Father Breast cancer Mother Heart disease Mother Kidney cancer Mother Relation Status Comments Father Mother Social History Tobacco Use Types Packs/Day Years Used Date Smoking Tobacco: Never Smokeless Tobacco: Never Tobacco Cessation:Counseling Given: Not Answered Alcohol Use Standard Drinks/Week Comments Yes 0 (1 standard drink = 0.6 oz pur e alcohol) Occasional Comments Unknown Sex and Gender Information Value Date Recorded Sex Assigned at Not on file Legal Sex Female 12:33 PM EDT Gender Identity Not on file Sexual Orientation Not on file Plan of Treatment Health Maintenance Due Date Last Done Comments Influenza Vaccine (#1) 2025 9, 03/16/2018, 03/04/2016, Additional history exists Pneumococcal Vaccine: 50+ Years Completed 06/26/2015, 06/09/2015, 03/15/2009, Additional history exists Hepatitis B Vaccine Aged Out No longe r eligible based on patient's age to complete this topic Care Teams Delivery Supervisor Relationship Specialty Start Date End Date Naida Kent PA [address] [place] [address] PCP - General Physician Waste Minimization Technician 01/26/25
--- OUTSIDE RECORDS SUMMARY | 2025-02-11 14:08 | XMS_ITS | Encounter Summary ---
Author Organization [facility] Address [address] [place] [address] Phone Care Team Providers Care Ion Exchange Operator Name Role Phone Naida Kent Primary Care Provider [phone] Encounter Details Date Type Department Care Team (Late st Contact Info) Description 02/09/2025 Orders Only [facility] Rebecca. [address] [facility] [place] [address] Crystal Feng MA [address] [facility] [place] [address] Social History Tobacco Use Types Packs/Day Years Used Date Smoking Tobacco: Never Smokeless Tobacco: Never Alcohol Use Standard Drinks/Week Comments Yes 0 (1 standard drink = 0.6 oz pur e alcohol) Occasional Comments Unknown Sex and Gender Information Value Date Recorded Sex Assigned at Not on file Legal Sex Female 12:33 PM EDT Gender Identity Not on file Sexual Orientation Not on file documented as of this encounter Plan of Treatment Not on file documented as of this encounter Visit Diagnoses Not on filedocumented in this encounter Care Teams Ion Exchange Operator Relationship Specialty Start Date End Date Naida Kent PA [address] [place] [address] PCP - General Physician [place] 01/26/25 documented as of this encounter
--- OUTSIDE RECORDS SUMMARY | 2025-02-11 14:08 | XMS_ITS | Clinical Summary ---
Author Organization [facility] Address [address] [place] [id number] Care Team Providers Care Clearing Inspector Name Role Phone Naida Kent Primary Care Pr ovider Paresh Olivera NP Unavailable [phone] Chris Gaviria MD Unavailable [phone] Allergies Active Allergy Reactions Criticality Noted Date [...] 1 tablet (75 mcg total) by mouth surgery manager before breakfast Active ferrous sulfate 325 mg [...] - 12/20/2024 11:59 PM CDT Hospital Encounter [facility] [address] [place] [address] Chris Gaviria MD Spinal stenosis of lumbar [...] on file 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 Please refer to the physician's procedure / OR operative note. us Chris Gaviria MD IMG PAIN MGMT PROCEDU RES Final Result RAD_PACS_[facility] from Last 3 Months Insurance MEDICARE [facility] MEDICARE SUPPLEMENT MEDICARE [facility] MEDICARE SUPPLEMENT Care Teams Clearing Inspector Relationship Specialty Start Date End Date Naida Kent PA PCP - General 07/16/21 [place] [address] [address] Nurse Practitioner Nurse Practitioner 09/06/24 [place] [address] [address] [facility] [address] [address] Consulting Physician Pain Management 09/06/24
== END 2025-02-11 13:46 | disposition home or self-care (01) ==
PROVIDERS: PCP Physician Assistant; Visit Provider Physician Assistant
DX: I10 Essential (primary) hypertension (principal); R79.89 Other specified abnormal findings of blood chemistry
CPT/HCPCS: 71046

== ENCOUNTER 2025-03-15 14:04 | Outpatient (CLI) | payer MEDICARE, SELFPAY ==
--- NOTE | ~2025-03-15 | MM_ITS ---
EXAMINATION: MM screening tricia BI w rajeev HISTORY: Screening TECHNIQUE: Craniocaudal and mediolateral oblique 3-D tomosynthesis images were obtained and synthetic 2-D images were generated. CAD analysis was submitted and interpreted. COMPARISON: Comparison to multiple prior studies sequentially, with oldest reviewed study dated , 08/10/2018 BREAST PARENCHYMAL COMPOSITION: The breasts are heterogeneously dense, which may obscure small masses. FINDINGS: There is no evidence of suspicious mass, calcification, or architectural distortion to suggest malignancy in either breast. IMPRESSION: 1. No mammographic evidence of malignancy. 2. Recommend routine screening mammography in one year. BI-RADS Category 1: Negative Reviewed, dictated and finalized at location B.
--- OUTSIDE RECORDS SUMMARY | 2025-03-15 15:00 | XMS_ITS | Clinical Summary ---
Author Organization [facility] Address [address] [place] [address] Care Team Providers Care Tab Machine Operator Name Role Phone Evi Chinchilla MD Unavailable [phone] Jose Lemon MD Unavailable [phone] Kristopher Shi MD Unavailable [phone] Wilbur Kapadia DO Unavailable Source Comments [facility],non-owned Affiliates and Associated Physician Practices is amultiple site organization consisting of ambulatory clinics and hospital sitesin [place], [place], [place]. This disclosure is being madepursuant to the Care Everywhere program and may not contain all information available regarding this patient. Last updated 18.[facility] Allergies Active Allergy Reactions Criticality [...] Multiple Vitamin (MULTIVITAMINS PO) once daily. 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 POA is Barry Frausto. Care Teams Tab Machine Operator Relationship Specialty Start Date End Date Evi Chinchilla MD [address] [facility] [address] [place] [address] Gynecology 01/19/10 Jose Lemon MD [address] [facility] [address] [place] [address] Orthopedic Surgery 07/02/13 Kristopher Shi MD [address] [place] [phone] Ophthalmology 07/02/13 Wilbur Kapadia DO [address] [place] [phone] Physical Medicine and Rehabilitation 05/08/16
--- OUTSIDE RECORDS SUMMARY | 2025-03-15 15:00 | XMS_ITS | Clinical Summary ---
Author Organization [facility] Address [address] [place] [address] Care Team Providers Care Plastic Surgery Technician Name Role Phone Naida Kent Primary Care Pr ovider Paresh Olivera NP Unavailable Chris Gaviria MD Unavailable [phone] Allergies Active Allergy Reactions Criticality Noted Date [...] 1 tablet (75 mcg total) by mouth hotel dining room cashier before breakfast Active ferrous sulfate 325 mg [...] Active carvediloL (COREG) 12.5 mg tablet Take 2 tablets (25 mg total) by mouth 2 (two) times [...] Date Rheumatoid arthritis involvi ng both hands ([facility]) 05/12/2020 05/15/2021 Right carotid bruit 05/26/2019 05/15/20 21 Pain of foot 01/04/2014 05/15/2021 Encounters Date Type Department Care Team Description 03/03/2025 2:50 PM CDT - 03/03/2025 11:59 PM CDT Hospital Encounter [facility] [address] [place] [address] Paresh Olivera NP Radiculopathy, lumbosacral region (Primary Dx); Postlaminectomy syndrome, lumbar; 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 claudication; Sacroiliitis; Lumbar radiculopathy; Lumbosacral radiculopathy Discharge Disposition: Discharge to home or self care 12/20/2024 2:26 PM CDT - 12/20/2024 11:59 PM CDT Hospital Encounter [facility] [address] [place] [address] Chris Gaviria MD Spinal stenosis of lumbar [...] on file 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 Gender Identity Not on file Sexual Orientation Not on file Obstetrics History Last Filed Vital Signs Vital Sign Reading Time Taken Comments Blood Pressure 145/67 03/03/2025 3:03 PM CDT Pulse 69 03/03/2025 3:03 PM CDT Temperature 36.5 C (97.7 F) 12/20/2024 2:44 PM CDT Respiratory Rate 15 03/03/2025 3:03 PM CDT Oxygen Saturation 91% 03/03/2025 3:03 PM CDT Inhaled Oxygen Concentration - - Weight 54.2 kg (119 lb 8 oz) 03/25/2023 12:18 PM CDT Height 149.9 cm (4' 11) 03/25/2023 12:18 PM CDT Body Mass Index 24.14 03/25/2023 12:18 PM CDT Plan of Treatment Health Maintenance Due Date Last Done Comments Depression Screening 1940 Hepatitis B Screening 1960 Well Visit 65+ 11/11/2007 Osteoporosis Screening-Bone Density Scan 12/29/2020 12/29/2018, 12/29/2018 Covid-19 Vaccine (5 - 2024-2 6 season) 2025 06/11/2021, 08/17/2020, 07/20/2020, Additional history exists Influenza Vaccine (#1) 2025 , 03/07/2020, 02/16/2019, Additional history exists DTaP/Tdap/Td Vaccine (3 - Td or Tdap) 06/09/2025 06/09/2015, 06/08/2015 Fall Risk Assessment 03/03/2026 03/03/2025 Pneumococcal vaccine 65+ Completed 016, 06/09/2015, 03/15/2009, Additional history exists Zoster Vaccine Completed 06/26/2023, 01/08, 02/15/2013, Additional history exists Procedures Procedure Name Priority Date/Time Associated Diagnosis Comments PAIN MGMT IMAGING LUMBAR/CAUDAL EPIDURAL STEROID INJ Schedule Routine, Read Routine (OP Routine) 12/20/2024 3:31 PM CDT Lumbar radiculopathy from Last 3 Months Results * Imaging Lumbar/Caudal Epidural Steroid INJ ([id number]) (12/20/2024 3:31 PM CDT) Narrative RAD_PACS_CH - 12/20/2024 3:31 PM CDT The images from this study are not interpreted by Radiology. Please refer to the physician's procedure / OR operative note. us Chris Gaviria MD IMG PAIN MGMT PROCEDU RES Final Result RAD_PACS_CH from Last 3 Months Insurance MEDICARE [facility] MEDICARE [facility] MEDICARE SUPPLEMENT MEDICARE [facility] MEDICARE SUPPLEMENT Care Teams Plastic Surgery Technician Relationship Specialty Start Date End Date Naida Kent PA PCP - General 07/16/21 [place] [address] [address] Nurse Practitioner Nurse Practitioner 09/06/24 [place] [address] [facility] [address] [place] [address] Consulting Physician Pain Management 09/06/24
--- OUTSIDE RECORDS SUMMARY | 2025-03-15 15:00 | XMS_ITS | Clinical Summary ---
Author Organization [facility] Address [address] [place] [address] Phone Care Team Providers Care Design Printer Balloon Name Role Phone Vahid Harper MD Primary Care Provider [phone] Allergies Active Allergy Reactions Criticality Noted Date [...] ONCE DAILY 8 Active ergocalciferol (VITAMIN D) 68901 UNIT Capsule TAKE 1 CAPSULE BY MOUTH TWICE WEEKLY 8 Active lisinopril-hydr oCHLOROthiazide (PRINZIDE, ZESTORETIC) 20-25 MG Tablet TAKE 1 TABLET BY MOUTH ONCE DAILY 8 Active lidocaine viscous (XYLOCAINE) 2 % Solution 9 Active [place]-3 Fatty Acids (FISH OIL) 500 MG Capsule [...] Comments Blood Pressure 138/82 04/12/2024 2:52 PM PROCESS ENGINEERING MANAGER Pulse 71 04/12/2024 2:52 PM PROCESS ENGINEERING MANAGER Temperature 36.3 C (97.4 F) 04/12/2024 2:52 PM PROCESS ENGINEERING MANAGER Respiratory Rate 16 04/12/2024 2:52 PM PROCESS ENGINEERING MANAGER Oxygen Saturation 94% 04/12/2024 2:52 PM PROCESS ENGINEERING MANAGER Inhaled Oxygen Concentration - - Weight 47.2 kg (104 lb) 04/12/2024 2:52 PM PROCESS ENGINEERING MANAGER Height 152.4 cm (5') 04/12/2024 2:52 PM PROCESS ENGINEERING MANAGER Body Mass Index 20.31 04/12/2024 2:52 PM PROCESS ENGINEERING MANAGER Plan of Treatment Health Maintenance Due Date Last Done Comments Hepatitis C Virus (HCV) Screening 1940 Respiratory Syncytial Virus (RSV) Immunization (Adult) (1 - 1-dose 75+ series) 2017 DEXA Bone Density 12/29/2020 12/29/2018 Influenza Immunization (#1) 2025 10/0 12/2023, 03/18/2023, 03/12/2022, Additional history exists SARS-COV-2 Immunization ( season) 2025 06/11/2021, 08/17/2020, 07/20/2020, Additional history exists Medicare Initial AWV [id number] Completed 02/28/2015 TdaP Immunization Completed 06/08/2015 DTaP/Tdap/Td Immunization Discontinued [...] Procedure Name Priority Date/Time Associated Diagnosis Comments [facility] BONE DENSITOMETRY AXIAL SKELETON Routine 12/29/2018 2:41 PM CDT Disorder of bone Low bone mass from Last 3 Months or Most Recently Relevant to Health Maintenance Results * [facility] BONE DENSITOMETRY AXIAL SKELETON (12/29/2018 2:41 PM [...] of screening. Postmenopausal. Disorder of bone unspecified Educational Therapist/Model: [employer] (S/N [id number]) CLINICAL INFORMATION: Current height: 58 inches Weight: [...] signed by Sunny Moctezuma M.D. KEVIN: KEVIN Yeager: 12/29/2018 4:28 PM Report ID: [id number] Reading Location: [id number] Procedure Note Jose Farmer DPM / Sunny Moctezuma MD - 01/19/2019 EXAM DESCRIPTION: [place] BONE DENSITOMETRY AXIAL SKELETON REASON FOR STUDY: 78 y/o year old F with given history of screening. Postmenopausal. Disorder of bone unspecified Educational Therapist/Model: [employer] (S/N [id number]) CLINICAL INFORMATION: Current height: 58 inches Weight: [...] Sunny Moctezuma M.D. KEVIN: KEVIN Report ID: [id number] Reading Location: [id number] IMPRESSION: Osteopenia of the left hip REFERENCE: [...] Treatment of Osteoporosis (http://www.nof.org/professionals/clinical-guidelines) Ema Alston APRN, STATISTICAL METHODS TEACHER IMG DEXA ORDERABL ES Edited Result - Final from Last 3 Months or Most Recently Relevant to Health Maintenance Insurance MEDICARE [facility] Care Teams Design Printer Balloon Relationship Specialty Start Date End Date Vahid Harper MD [address] [place] [phone] PCP - General Internal Medicine 08/24/18
--- OUTSIDE RECORDS SUMMARY | 2025-03-15 15:00 | XMS_ITS | Data Portability ---
[facility] [address] [place] [address] Care Team Providers Care Convention Services Manager Name Role Phone EVAN MINAYA Primary Care Provider Unavailab le Assessment No assessment recorded. Plan of Treatment Reminders Order Date Submit Date Provider Last Modified By Organization Details Last Modified Time Details Appointments ANY 15 2024 02:00P M NATACHA Kwong Not available Not available Not available Lab lipid panel, serum 2024 025 [email or web address] [facility], [address], [place], [address], 10/22/2024 15:20:37 HbA1c (hemoglob in A1c), blood 2024 025 [email or web address] [facility], [address], [place], [address], 10/22/2024 15:20:37 hepatic function panel, serum 2024 025 [email or web address] [facility], [address], [place], [address], 10/22/2024 15:20:37 CBC w/ auto diff 2024 025 [email or web address] [facility], [address], [place], [address], 10/22/2024 15:20:37 BMP, serum or plasma 2024 025 [email or web address] [facility], [address], [address], [place], [address], 10/22/2024 15:20:37 TSH + free T4, serum 2024 025 [email or web address] [facility], [address], [address], [place], [address], 10/22/2024 15:20:37 vitamin D, 25-hydrox y, total, serum 2023 025 [email or web address] [facility], [address], [address], [place], [address], 10/25/2024 11:49:28 lipid panel, serum 2023 025 [email or web address] [facility], [address], [address], [place], [address], 10/25/2024 11:49:44 BMP, serum or plasma 2023 025 [email or web address] [facility], [address], [address], [place], [address], 10/25/2024 11:49:10 CBC w/ auto diff 2023 025 [email or web address] [facility], [address], [address], [place], [address], 10/25/2024 11:49:16 hepatic function panel, serum 2023 025 [email or web address] [facility], [address], [address], [place], [address], 10/25/2024 11:49:22 HbA1c (hemoglob in A1c), blood 2023 025 [email or web address] [facility], [address], [address], [place], [address], 10/25/2024 11:49:49 HbA1c (hemoglob in A1c), blood 2023 025 [facility], [address], [address], [place], [address], 08/26/2024 10:28:44 BMP, serum or plasma 2023 025 [facility], [address], [address], [place], [address], 08/26/2024 10:29:08 TSH + free T4, serum 2023 025 [facility], [address], [address], [place], [address], 10/25/2024 11:49:36 TSH + free T4, serum 2023 025 [facility], [address], [address], [place], [address], 08/26/2024 10:29:02 vitamin D, 25-hydrox y, total, serum 2023 024 [facility], [address], [address], [place], [address], 04/19/2024 16:34:43 lipid panel, serum 2023 024 [facility], [address], [address], [place], [address], 04/19/2024 16:33:27 BMP, serum or plasma 2023 024 [facility], [address], [address], [place], [address], 04/19/2024 16:33:42 CBC w/ auto diff 2023 024 [facility], [address], [place], [address], 04/19/2024 16:34:06 hepatic function panel, serum 2023 024 [facility], [address], [address], [place], [address], 04/19/2024 16:35:04 vitamin B12 + folate, serum or blood 2023 024 [facility], [address], [address], [place], [address], 04/19/2024 16:34:33 HbA1c (hemoglob in A1c), blood 2023 [facility], [address], [address] [place], [place], [address], 04/19/2024 16:33:56 TSH + free T4, serum 2023 VAN NUYS [facility], [address], [place], [address], 04/19/2024 16:35:15 T3, free, serum or plasma 2023 024 [facility], [address], [address], [place], [address], 04/19/2024 16:34:11 Referral None recorded. Procedures lexiscan cardiolit e stress test (PROC) 2023 024 [facility] ([facility]), [address], [place], [address], 03/05/2024 11:32:47 Surgeries None recorded. Imaging CT, abdomen + pelvis, w/ contrast 2024 025 [facility] (Imaging), [address], [place], [address], 11/08/2024 17:35:00 US, echocardi ogram, transthor acic, complete, w/ color flow 2023 [facility] ([facility]iology [facility]), [address], [place], [address], 03/04/2024 15:50:56 Medication Orders omeprazol e 40 mg capsule,d elayed release 2024 025 [facility], [address] [place], [address], 10/22/2024 15:24:02 amlodipin e 5 mg tablet 2024 025 [email or web address] [facility], [address] [place] [address], [address], 10/22/2024 15:28:05 famotidin e 40 mg tablet 2023 024 [facility], [address] [place] [address], [address], 04/27/2024 15:28:22 duloxetin e 30 mg capsule,d elayed release 2023 024 [facility] [address], [address] [place] [address], [address], 04/27/2024 15:28:22 famotidin e 40 mg tablet 2023 024 [email or web address] [address], [address] [place] [address], [address], 04/27/2024 14:54:33 Patient TargetsNo targets recorded. Patient InstructionsNo instructions recorded. Reason for Referral None Reported. Results Created Date Observation Date Name Description Value Unit Range Abnormal Flag Note LastModifiedBy Organization Detail LastModifiedTime 02/12/2002/12/2025 BASIC METAB OLIC PANEL glucose 95 mg/dL 65-139 normal Non-f astin g refer ence inter mirna Not Available [address], [address], 02/12/2025 02:43:00 02/12/2002/12/2025 BASIC METAB OLIC PANEL urea nitrogen (BUN) 6 mg/dL 7-25 low Not Available [address], [address], 02/12/2025 02:43:00 02/12/2002/12/2025 BASIC METAB OLIC PANEL creatinine 0.47 mg/dL 0.60-0 .95 low Not Available [address], [address], 02/12/2025 02:43:00 02/12/2002/12/2025 BASIC METAB OLIC PANEL eGFR 95 mL/mi n/1.7 3m2 > or = 60 normal Not Available [address], [address], 02/12/2025 02:43:00 02/12/2002/12/2025 BASIC METAB OLIC PANEL BUN/creatini ne ratio 13 (calc ) 6-22 normal Not Available [address], [address], 02/12/2025 02:43:00 02/12/2002/12/2025 BASIC METAB OLIC PANEL sodium 129 mmol/ L 135-14 6 low Not Available [address], [address], 02/12/2025 02:43:00 02/12/2002/12/2025 BASIC METAB OLIC PANEL potassium 4.1 mmol/ L 3.5-5. 3 normal Not Available [address], [address], 02/12/2025 02:43:00 09/05/20 25 02/12/2025 BASIC METAB OLIC PANEL chloride 94 mmol/ L 98-110 low Not Available [facility] [address] [place], [address], 02/12/2025 02:43:00 02/12/20 25 02/12/2025 BASIC METAB OLIC PANEL carbon dioxide 29 mmol/ L 20-32 normal Not Available [facility] [address] [place], [address], 02/12/2025 02:43:00 02/12/20 25 02/12/2025 BASIC METAB OLIC PANEL calcium 8.9 mg/dL 8.6-10 .4 normal Not Available [facility] [address] [place], [address], 02/12/2025 02:43:00 03/04/20 24 02/24/2024 US, echoc ardio gram, trans thora cic, compl ete, w/ color flow No observ ation record ed. [address] (Cardiology & Emg) [address] [place] [address], [address], 03/15/2024 14:17:01 03/04/20 24 03/04/2024 khris can cardi olite stres s test (PROC ) No observ ation record ed. [address] (Cardiology [facility] Emg) [address] [place] [address], [address], 03/15/2024 14:16:45 03/15/20 24 03/13/2024 MAMMO , scree benjamín, digit al, bilat eral No observ ation record ed. [address], [address], 03/15/2024 14:16:46 11/09/19 25 11/08/2024 CT, abdom en + pelvi s, w/ contr ast No observ ation record ed. [address], [address], 11/09/2024 15:53:40 12/23/1903/13/2024 MAMMO , sandra nce No observ ation record ed. [email or web address] Not Available 2024 15:21:16 02/16/20 25 02/11/2025 XR, chest No observ ation record ed. [facility] [address], [place], [address], 02/17/2025 17:29:52 Result Notes None recorded. Problems Name Problem SNOMED Code Status Onset Date Resolution Date Notes Provider Name and Address Organization Details Recorded Time Long-term drug therapy Active 2023 NATACHA Kwong Attn: Westley alves,[address] [place], [address], [place] - [facility] 4 22:21:22 Osteoporosi s 27349146 Active 2023 NATACHA Kwong Attn: Westley alves,[address] [place], [address], [place] - [facility] 4 22:21:33 Blood glucose outside reference range 887646121 Active 2023 NATACHA Kwong Attn: Westley g,[address] [place], [address], [place] [facility] 4 22:21:34 Nausea 337455005 Active 2023 NATACHA Kwong Attn: Westley g,[address] [place], [address], [place] [facility] 4 22:21:43 Hypothyroid ism 50641338 Active 2023 NATACHA Kwong Attn: Westley g,[address] [place], [address], [place] [facility] 4 22:22:00 Mixed hyperlipide nevin 498737589 Active 2023 NATACHA Kwong Attn: Westley alves,[address] [place], [address], [place] [facility] 4 22:22:33 Dyspnea on exertion 66744642 Active 2023 NATACHA Kwong Attn: Accountin g,[address] [facility], [place], [address], [place] [facility] 4 22:22:35 Rheumatoid arthritis 50028203 Active 2023 NATACHA Kwong Attn: Accountin g,[address] [facility], [place], [address], [place] [facility] 4 22:22:36 Benign essential hypertensio n 1583004 Active 2023 NATACHA Kwong Attn: Accountin g,[address] [facility], [place], [address], [place] [facility] 4 22:22:37 Echocardiog yefri abnormal 639812021 Active 2023 NATACHA Kwong Attn: Accountin g,[address] [facility], [place], [address], [place] [facility] 4 14:36:37 Depressive disorder 38394755 Active 2023 NATACHA Kwong Attn: Accountin g,[address] [facility], [place], [address], [place] [facility] 4 15:27:46 Gastroesoph ageal reflux disease 294388368 Active 2023 NATACHA Kwong Attn: Accountin g,[address] [facility], [place], [address], [place] [facility] 5 12:43:27 Hyponatremi a 61084943 Active 2023 NATACHA Kwong Attn: Accountin g,[address] [facility], [place], [address], [place] [facility] 4 15:27:57 Body mass index 20-24 - normal 229730954 Active 2024 Dequan Whitley [place] null, [place] [facility] 14:53:11 Positive screening for depression on PHQ-9 (Patient Health Questionnai re 9) [id number] 00 Active 2024 NATACHA Kwong Attn: Accountsimi g,[address] [facility], [place], [address], [place] [facility] 14:39:57 Celiac disease 347825152 Active 2024 NATACHA Kwong Attn: Accountin g,[address] [facility], [place], [address], [place] [facility] 14:40:28 Prediabetes 614265068 Active 2024 NATACHA Kwong Attn: Accountin g,[address] [facility], [place], [address], [place] [facility] 12:43:03 Raynaud's phenomenon 554430103 Active 2024 NATACHA Kwong Attn: Accountin g,[address] [facility], [place], [address], [place] [facility] 12:44:39 Problem Notes None recorded. Procedures Surgical History Date Name Laterality Status Provider Name and Address Organization Details Recorded Time Appendectomy completed Dequan [place] [facility] 02/03/2024 14:41:06 Arthroscopic Surgery completed Dequan [place] [facility] 02/03/2024 14:41:11 Back Surgery completed Dequan [place] [facility] 02/03/2024 14:41:17 Eye Surgery completed NUNU Moore - [facility] 02/03/2024 14:41:24 Hernia Repair completed NUNU Moore - [facility] 02/03/2024 14:42:05 Joint Replacement completed Dequan [place] [facility] 02/03/2024 14:42:12 Knee Surgery completed Dequ[place] [facility] 02/03/2024 14:42:17 Tonsillectomy completed Dequan [place] [facility] 02/03/2024 14:42:23 Imaging Results None recorded. Procedure Notes None recorded. Medical Equipment None Reported. Allergies No known drug allergies Medications Name Sig Start Date Stop Date Status Note LastModified by Organization Details LastModified Time carvedilol 25 mg tablet TAKE 1 TABLET BY MOUTH TWICE DAILY active Not Available Not Available No t Available carvedilol 6.25 mg tablet Take 1 tablet twice a day by oral route. 02/25 completed Not Available Not Available Not Available atorvastatin 20 mg tablet Take 1 tablet by mouth once daily 2024 active Not Available Not Available Not Avai lable carvedilol 12.5 mg tablet TAKE 1 TABLET BY MOUTH TWICE DAILY active Not Available Not Available No t Available tizanidine 2 mg tablet TAKE 1 TABLET BY MOUTH TWICE DAILY NEEDED FOR SPASMS 08/27 completed Not Available Not Available Not Available lisinopril 20 mg tablet Take 1 tablet by [...] Not Available Not Available No t Available hydrocodone 10 mg-acetamino phen 325 mg tablet TAKE 1 TABLET BY MOUTH EVERY 6 HOURS NEEDED X 15 DAYS 08/25 completed Not Available Not Available Not Available omeprazole 40 mg capsule,roddy yed release TAKE 1 CAPSULE BY MOUTH ONCE DAILY active Not Available Not Available No t Available oxycodone-ac etaminophen 5 mg-325 mg tablet TAKE 1 TABLET BY MOUTH EVERY 6 HOURS NEEDED FOR 7 DAYS 08/27 completed Not Available Not Available Not Available amoxicillin 875 mg tablet TAKE 1 TABLET BY MOUTH EVERY 12 HOURS FOR 10 DAYS 08/27 completed Not Available Not Available Not Available famotidine 20 mg tablet TAKE 1 TABLET BY MOUTH ONCE DAILY active Not Available Not Available No t Available ferrous sulfate 325 mg (65 mg iron) tablet TAKE 1 TABLET BY MOUTH ONCE DAILY 02/02 completed Not Available Not Available Not Available Synthroid 75 mcg tablet Take 1 tablet(s ) every day by oral route. 2024 active Not Available Not Available Not Avai lable lisinopril 20 mg-hydrochlo rothiazide 25 mg tablet TAKE 1 TABLET BY MOUTH ONCE DAILY 08/27 completed Not Available Not Available Not Available ergocalcifer ol (vitamin D2) 1,250 mcg (50,000 unit) capsule TAKE 1 CAPSULE BY MOUTH ONCE A WEEK 2024 active Not Available Not Available Not Avai lable hydroxychlor oquine 200 mg tablet TAKE 1 TABLET BY MOUTH TWICE DAILY active Not Available Not Available No t Available oxycodone-ac etaminophen 7.5 mg-325 mg tablet TAKE 1 TABLET BY MOUTH EVERY 6 HOURS NEEDED. *DNF 01/19/25 active Not Available Not Available No t Available duloxetine 30 mg capsule,roddy yed release TAKE 1 CAPSULE BY MOUTH ONCE DAILY active Not Available Not Available No t Available sodium chloride 1,000 mg soluble tablet TAKE 1 & 1/2 (ONE & ONE-HALF ) TABLETS BY MOUTH TWICE DAILY FOR 1 MONTH 08/27 completed Not Available Not Available Not Available Vitals Date Recorded Systolic And Diastolic Provider Name and Address Organization Details Last Updated DateTime 08/25/2024 150/80 mm[Hg] NATACHA Kwong Attn: Accounting,[address] [place], [address], [facility] 08/25/2024 15:29:00 Date Recorded Body height Body mass index (BMI) Body weight Respiratory rate Oxygen saturation Oxygen saturation in Arterial blood by Pulse oximetry Heart rate Systolic And Diastolic Provider Name and Address Organization Details Last Updated DateTime 150.5 cm 21 kg/m2 12875.2 g 20 /min 98 % 98 % 69 /min 146/80 mm[Hg] Dequan Whitley MA [facility] 14:59:17 Date Recorded Systolic And Diastolic Provider Name and Address Organization Details Last Updated DateTime 10/22/2024 140/72 mm[Hg] NATACHA Kwong Attn: Accounting,[address] [place], [address], [facility] 10/22/2024 15:28:32 Date Recorded Body height Body mass index (BMI) Body weight Respiratory rate Oxygen saturation Oxygen saturation in Arterial blood by Pulse oximetry Heart rate Systolic And Diastolic Provider Name and Address Organization Details Last Updated DateTime 5 150.5 cm 20.6 kg/m2 56865.0 1 g 18 /min 97 % 97 % 72 /min 142/70 mm[Hg] Dequan Whitley MA [facility] 5 15:10:28 Date Recorded Systolic And Diastolic Provider Name and Address Organization Details Last Updated DateTime 02/03/2024 160/80 mm[Hg] NATACHA Kwong Attn: Accounting,[address] [place], [address], [facility] 02/03/2024 15:10:35 Date Recorded Body height Body mass index (BMI) Body weight Respiratory rate Oxygen saturation Oxygen saturation in Arterial blood by Pulse oximetry Heart rate Systolic And Diastolic Provider Name and Address Organization Details Last Updated DateTime 4 150.5 cm 21.4 kg/m2 90870.6 7 g 18 /min 97 % 97 % 66 /min 148/68 mm[Hg] Dequan Whitley MA [facility] 14:42:47 Date Recorded Systolic And Diastolic Systolic And Diastolic Provider Name and Address Organization Details Last Updated DateTime 03/15/2024 130/62 mm[Hg] 130/64 mm[Hg] NATACHA Kwong Attn: Accounting, [place], [address], [facility] 03/15/2024 14:35:11 Date Recorded Body height Body mass index (BMI) Body weight Respiratory rate Oxygen saturation Oxygen saturation in Arterial blood by Pulse oximetry Heart rate Systolic And Diastolic Provider Name and Address Organization Details Last Updated DateTime 4 150.5 cm 21.2 kg/m2 60461.7 9 g 20 /min 98 % 98 % 60 /min 150/82 mm[Hg] Dequan Whitley MA [facility] 14:12:50 Date Recorded Systolic And Diastolic Provider Name and Address Organization Details Last Updated DateTime 04/27/2024 130/74 mm[Hg] NATACHA Kwong Attn: Accounting,[address] [facility], [place], [address], [place] [facility] 04/27/2024 15:25:01 Date Recorded Body height Body mass index (BMI) Body weight Respiratory rate Oxygen saturation Oxygen saturation in Arterial blood by Pulse oximetry Heart rate Systolic And Diastolic Provider Name and Address Organization Details Last Updated DateTime 150.5 cm 20.8 kg/m2 13216.6 1 g 20 /min 96 % 96 % 55 /min 132/82 mm[Hg] Dequan [place] [facility] 4 14:58:04 Social History Question Answer Notes LastModified by Organizat ion Details LastModified Time Tobacco Smoking Status Never Smoker Dequan Whitley MA null, [facility] 08/28/2023 15:22:43 Do You Have An Advance [...] 08/28/2023 Are you able to care for yourself independently? Yes Information not available 08/28/2023 What is your exercise level? None Information not available 02/03/2024 Mental Status Question Answer Note LastModified by Organization D etails LastModified Time Do you feel stressed (tense, restless, nervous, or anxious, or unable to sleep at night)? [id number] Information not available 02/03/2024 Family History Nothing Reported. Medical History Condition Response Muscle, Joint, or Bone Problems Y High Blood Pressure Y Acid Reflux (GERD) Y Thyroid Problems Y High Cholesterol Y Osteoporosis Y Gynecological History Statement/Question Response Menses Monthly [...] PF, 30 mcg/0.3 mL dose 1 completed NUNU [place], [place] - [facility] 03/16/2024 16:58:09 pneumococcal polysaccharide [...] [facility] 03/16/2024 16:58:09 zoster live 3 completed Dequan [place] [facility] 03/16/2024 16:58:09 Influenza, high-dose, trivalent, PF 7 completed Dequan Whitley [place] [facility] 03/16/2024 16:58:09 Influenza, split virus, trivalent, preservative 3 completed Dequan [place] [facility] 03/16/2024 16:58:09 Influenza, split virus, trivalent, preservative 2 completed Dequan Whit[place] [facility] 03/16/2024 16:58:09 Influenza, split virus, quadrivalent, PF 5 completed Sergionoemianya Whitley NUNU car[place], [place] [facility] 03/16/2024 16:58:09 Influenza, high-dose, trivalent, PF 4 completed NATACHA Kwong Attn: Accounting,[address] [place], [address], [place] [facility] 04/04/2024 23:32:16 Past Encounters Encounter ID Performer Location Encounter Start Date Encounter Closed Date Diagnosis/Indication Diagnosis SNOMED-CT Code Diagnosis ICD10 Code Diagnosis IMO Codes Diagnosis Note [id number] Hudson Montoya MD [facility] [address] [place] [address] 08/28/2023 14:45:33 09/06/2023 07:14:54 Benign essential hypertension 9672002 I10 discontinu e amlodipine script, and start coreg 6.25mg bid and lisinopril 20mg daily. Mixed hyperlipidemia 267 777566 E78.2 Refill on atorvastat in 20mg daily and due for fasting lipid panel Hypothyroidism 20519092 E03.9 due for thyroid lab panel. on synthroid 75mcg daily from [facility] Rheumatoid arthritis 698 [address] M06.9 follows with Rheumatolo gy; pt taking hydroxychl oroquine 200mg bid Osteoporosis 22878017 M8 1.0 due for vit d lab. Pt is taking fosamax 70mg weekly script Long-term drug therapy 607996916 Z79.899 routine bmp and cbc and LFT due. [id number] Hudson Montoya MD [facility] [address] [place] [address] 02/03/2024 14:02:13 02/03/2024 15:23:45 Benign essential hypertension 2600842 I10 Patient does have elevation today coreg 6.25mg bid and lisinopril 20mg daily. She is a little bit flustered and still grieving with the loss of her . We will have her son who is a nurse practition er check her blood pressure see what her home readings are at. We have room to increase Coreg or lisinopril as needed. Mixed hyperlipidemia 267 331434 E78.2 Refill on atorvastat in 20mg daily and due for fasting lipid panel in March Hypothyroidism 77281080 E03.9 Patient is stable on labs in the spring. Due again for thyroid function panel in March. She is on synthroid 75mcg daily from [facility] Rheumatoid arthritis 698 [address]3377 M06.9 follows with Rheumatolo gy; pt taking hydroxychl oroquine 200mg bid Osteoporosis 03235256 M8 1.0 due for vit d lab. Pt is taking fosamax 70mg weekly script Long-term drug therapy 629751717 Z79.899 routine bmp and cbc and LFT and vitamin B12/folate due in March, follow-up planned in April in the office Blood gluc ose outside reference range 413805739 R73.09 Slight increased risk for developing diabetes. Following A1c which is due again in March Nausea 294247356 R11.0 Continue omeprazole in the morning dosing and add famotidine 40 mg with dinner. Dyspnea on exertion 6084 5006 R06.09 Patient reports some dyspnea on exertion noted in the last couple of months. This is abnormal for her. We will refer for Lexiscan stress testing and complete echo with Doppler color flow [id number] Hudson Montoya MD [facility] [address] [place] [address] 03/15/2024 14:00:17 03/15/2024 15:19:23 Benign essential hypertension 7916850 I10 continue coreg 12.5mg bid. Lisinopril 20mg daily, blood pressure is well-contr olled at 130/64 today on exam. Echocardio gram abnormal 250414520 R93.1 atrial enlargemen t bilaterall y, EF stable at 50-55%. regurgitat ion in valves noted. Left ventricula r thickness is mild and diastolic grade 1 dysfunctio n noted. Patient has already been referred to Cardiology after results came in to the office. Lexiscan myocardial perfusion testing was normal with an ejection fraction of 70% estimated on that testing. Long-term drug therapy 719441859 Z79.899 Labs are up-to-date from September. Patient does have updated orders to complete. Administra tion of influenza vaccine 01988327 Z23 Flu shot given today [id number] Hudosn Montoya MD [facility] [address] [place] [address] 04/27/2024 14:43:39 04/27/2024 16:25:52 Benign essential hypertension 5036926 I10 great control on medication . Rheumatoid arthritis 698 91145 M06.9 follows with Rheumatolo gy; pt taking hydroxychl oroquine 200mg bid Mixed hyperlipidemia 267 852757 E78.2 Stable on atorvastat in 20mg daily Hypothyroidism 91284836 E03.9 Thyroid function testing labs will be due again in August and october she is on synthroid 75mcg daily from [facility] Blood gluc ose outside reference range 607807189 R73.09 Slight increased risk for developing diabetes. Following A1c which is due again in August and October Osteoporosis 37403550 M8 1.0 due for vit d lab. Pt is taking fosamax 70mg weekly script Long-term drug therapy [id number] Z79.899 routine bmp and cbc and LFT and vitamin B12/folate Hyponatremia 82691599 E8 7.1 this has previously been worked up with testing at prior office location. We will be following BMP levels each lab Gastroesop hageal reflux disease 977818699 K21.9 Add famotidine 40 mg daily to dinner which worked well for her in the past and then she forgot to continue dosing Depressive disorder 4828 5827 F32.A Start trial of duloxetine 30 mg daily which may help with her underlying depression from the recent loss of her this year and also for her pain from her rheumatolo [facility] [id number] Hudson Montoya MD [facility] [place] [address] [place] [address] 08/25/2024 14:34:57 08/25/2024 15:34:32 Body mass index 20-24 - normal [id number] Z68.21 BMI is 21 Benign ess ential hypertension 6830084 I10 Continue amlodipine at 5 mg daily dosing she was off of this for some time because she had swelling at 10 mg dosing but we are encouragin g her to restart at 5 mg which will help not only with her blood pressure that is elevated today at 150/80 but will also help with her underlying likely Raynaud's symptoms Rheumatoid arthritis 698 37439 M06.9 follows with Rheumatolo gy; pt taking hydroxychl oroquine 200mg bid Mixed hyperlipidemia 267 164086 E78.2 Stable on atorvastat in 20mg daily, labs are stable Hypothyroidism 19811856 E03.9 Patient is stable on Synthroid 75 mcg daily and labs are up-to-date Hyponatremia 65746849 E8 7.1 Sodium is stable at 132. We did have to cut out her diuretic to help with this Gastroesop hageal reflux disease 881891587 K21.9 For acid reflux management she is continuing omeprazole 40 mg daily Osteoporosis 36614331 M8 1.0 Pt is taking fosamax 70mg weekly script Depressive disorder 8768 9007 F32.A Patient is taking duloxetine 30 mg daily Long-term drug therapy 135137777 Z79.899 Celiac disease 705657355 K90.0 Underlying history and she does follow a gluten free diet Positive s creening for depression on PHQ-9 (Patient Health Questionnaire 9) [id number] 00908 Z13.31 Patient scored a 15 on her [...] resources to help her out as needed [id number] Hudson Montoya MD [facility] [place] [address] [place] [address] 10/22/2024 15:00:47 10/22/2024 15:54:17 Benign essential hypertension 0996208 I10 BP 140/72. boost to bid dosing amlodipine 5mg bid which will also help with underlying Raynaud's symptoms that she is reporting today Body mass index 20-24 - normal 455180127 Z68.21 BMI is 20.6 Hyponatremia 80018086 E8 7.1 Sodium is stable at 132. We did have to cut out her diuretic to help with this Long-term drug therapy 731367822 Z79.899 Liver panel and CBC due in April Hypothyroidism 69585056 E03.9 Patient is stable on Synthroid 75 mcg daily and labs are up-to-date Mixed hyperlipidemia 267 866730 E78.2 Stable on atorvastat in 20mg daily, labs are stable repeat again in April Rheumatoid arthritis 698 33570 M06.9 follows with Rheumatolo gy; pt taking hydroxychl oroquine 200mg bid Prediabetes 838280503 R7 3.03 890904 5.9% A1c on recent labs reviewed. Repeat labs again in April. She is limited being gluten free and celiac as to her diet modificati ons Gastroesop hageal reflux disease 281872378 K21.9 99335200 For acid reflux management she is continuing omeprazole 40 mg daily. Refill provided Anterior a bdominal wall mass 795339839 R19.[address] scan abdomen and pelvis with contrast due to abdominal wall fullness noted in the right lower quadrant on examinatio n today Raynaud's phenomenon 266 567793 I73.00 05688240 Increased amlodipine dosing 5 mg twice daily will help with this Health Concerns Section Related Observation LastModified by Organization Detai ls LastModified Time None Recorded Concern Status LastModified by Organization Details LastModified Time None Recorded Advance Directives Directive Y: Payers Insurance Date Sequence Insurance Name Policy Number Policy Resendiz Covered Member ID Resendiz Member ID Guarantor Name 11/08/2024 2 [place] [id number] Sandra Carlos [id number] Sandra Dudak 10/19/2024 1 [place] Sandra Coleman Dudak [id number] Sandra Dudak 10/19/2024 [place] - [facility] - [facility] Sandra Dudak [id number] Sandra Franciscodak Notes Date Note Type Note Provider Name and Address Organization Details Recorded Time 4 text/html HyperlipidemiaReported by Patientpt is taking atorvastatin 20mg daily. HypertensionReported by Patientpt stopped her amlodipine due to swelling and her BP is quite elevated today as a results. ThyroidReported by Patientpt takes thyroid supplement. due for labs Reflux/GERDReported by PatientHPIFor associated symptoms, patient reportsnausea.pt is taking omeprazole 40mg daily and stable. pt. states that she has been having some stomach issues states that she feels nauseous a little while after eating states thats she feels as if she is going to vomit but it won't come up states that she also has been extremely fatigue loss of energy. Patient also lost her due to cardiac arrest a month ago NATACHA Kwong Attn: Accounting,[address] [facility], [place], [address], [facility] 02/08/2024 22:23:59 4 text/html HypertensionReported by PatientPatient is here for follow-up on blood pressure. She is now on higher dose of coreg 12.5mg bid and Lisinopril 20mg daily. NATACHA Kwong Attn: Accounting,[address] [facility], [place], [address], [facility] 04/04/2024 23:36:04 4 text/html HyperlipidemiaReported by Patientpt is taking atorvastatin 20mg daily. HypertensionReported by PatientShe is now on higher dose of coreg 12.5mg bid and Lisinopril 20mg daily. ThyroidReported by Patientpt takes thyroid supplement. due for labs Reflux/GERDReported by Patientpt is taking omeprazole 40mg daily and stable. Patient did consult with Cardiology in [place] and they had no acute concerns or changes to the regimen and will follow up with her again next year. We did not receive a consult note from that visit yet but the patient updated us NATACHA Kwong Attn: Accounting,[address], [place], [address], [facility] 05/08/2024 19:10:13 5 text/html HyperlipidemiaReported by Patientpt is taking atorvastatin 20mg daily. HypertensionReported by PatientShe is now on higher dose of coreg 12.5mg bid and Lisinopril 20mg daily. Still with some elevation today ThyroidReported by Patientpt takes thyroid supplement, labs are up-to-date Reflux/GERDReported by Patientpt is taking omeprazole 40mg daily and stable. Patient did consult with Cardiology in [place] and they had no acute concerns or [...] been stable NATACHA Kwong Attn: Accounting,[address], [place], [address], [facility] 09/11/2024 14:43:45 5 text/html HyperlipidemiaReported by Patientpt is taking atorvastatin 20mg daily. HypertensionReported by PatientShe is now on higher dose of coreg 12.5mg bid and Lisinopril 20mg daily. Still with some elevation today ThyroidReported by Patientpt takes thyroid supplement, labs are up-to-date Reflux/GERDReported by Patientpt is taking omeprazole 40mg daily and stable. Patient did consult with Cardiology in [place] and they had no acute concerns or [...] & cold NATACHA Kwong Attn: Accounting,[address] [place], [address], [place] [facility] [place] 11/07/2024 12:44:54 OBGyn Episode No OBEpisode recorded.
--- OUTSIDE RECORDS SUMMARY | 2025-03-15 15:00 | XMS_ITS | Clinical Summary ---
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 Active Encounters Date Type Department Care Team Description 02/09/2025 Orders Only [facility] Rebecca. [address] [facility] [address] [place] [address] Crystal Feng MA from Last 3 Months [...] Last Done Comments Influenza Vaccine (#1) 2025 4, 02/16/2019, 03/16/2018, Additional history exists Pneumococcal Vaccine: 50+ Years Completed 06/26/2015, 06/09/2015, 03/15/2009, Additional history exists Hepatitis B Vaccine Aged Out No longe r eligible based on patient's age to complete this topic Care Teams Cheese Production Supervisor Relationship Specialty Start Date End Date Naida Kent PA [address] [place] [address] PCP - General Physician [employer] Plate Setter 01/26/25
== END 2025-03-15 14:05 | disposition home or self-care (01) ==
LOC: ANHFOHIMG 14:05
PROVIDERS: PCP Physician Assistant; Visit Provider Physician Assistant
DX: Z12.31 Encounter for screening mammogram for malignant neoplasm of breast (principal)
CPT/HCPCS: 77063; 77067

== ENCOUNTER 2025-03-16 15:09 | Outpatient (CLI) | payer MEDICARE, SELFPAY ==
--- NOTE | ~2025-03-16 | MR_ITS ---
EXAMINATION: MR lumbar spine wo con DATE: 03/16/2025 15:53 INDICATION: Postlaminectomy syndrome, lumbar . TECHNIQUE: Magnetic resonance imaging (MRI) of the lumbar spine was performed without intravenous contrast. Sequences included sagittal T2-weighted FSE, sagittal T2-weighted FS FSE, sagittal T1-weighted FSE, and axial T2-weighted FSE. COMPARISON: Lumbar spine MRI 10/22/2023 FINDINGS: There is 22 degrees levoscoliosis of lumbar spine. There is 5 mm anterolisthesis of L3 on L4 and 7 mm anterolisthesis of L4 on L5. There is a chronic burst fracture of T11 with changes of vertebroplasty. There is a burst fracture of superior endplate of L3 with 1/5 loss of height, edema-like marrow signal intensity, and retropulsion of bone 2 mm into central spinal canal. 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 There is an old healed fracture of the left sacral ala and S2 body. The distal spinal cord signal intensity is normal. The conus medullaris is at L1. The following disc levels are specifically discussed: L1-L2: The disc is bulging. There is severe bilateral facet joint osteoarthritis. There is mild bilateral neural foraminal stenosis. There is mild central canal stenosis. L2-L3: The disc is bulging. There is severe bilateral facet joint osteoarthritis. There is moderate right and mild left neural foraminal stenosis. There is mild central canal stenosis. L3-L4: The disc is bulging. There is severe bilateral facet joint osteoarthritis. There is moderate right and mild left neural foraminal stenosis. There is mild central canal stenosis. L4-L5: The disc is bulging and has an annular fissure. There is severe bilateral facet joint osteoarthritis. There is moderate bilateral neural foraminal stenosis. There is mild central canal stenosis. L5-S1: The disc is bulging with superimposed central extrusion. There is severe bilateral facet joint osteoarthritis. There is mild right and moderate left neural foraminal stenosis. There is mild central canal stenosis. IMPRESSION: 1. Acute versus subacute L3 burst fracture. 2. Severe lumbar spondylosis, stable from 10/22/2023. 3. Lumbar levoscoliosis. 4. 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 Reviewed, dictated and finalized at location E.
== END 2025-03-16 15:10 | disposition home or self-care (01) ==
PROVIDERS: PCP Physician Assistant; Visit Provider Anesthesiology Pain Medicine
DX: M96.1 Postlaminectomy syndrome, not elsewhere classified (principal); S32.031A Stable burst fracture of third lumbar vertebra, initial encounter for closed fracture; X58.XXXA Exposure to other specified factors, initial encounter; M47.816 Spondylosis without myelopathy or radiculopathy, lumbar region; M41.86 Other forms of scoliosis, lumbar region; M43.06 Spondylolysis, lumbar region
CPT/HCPCS: 72148